=== PATIENT | female | born 1940 | race African-American/Black ===

== ENCOUNTER → 2019-12-25 12:58 | Outpatient (BNVA) | payer MEDICARE, SELFPAY | PROVIDERS: Visit Provider Physician Assistant | DX: Z76.89 Persons encountering health services in other specified circumstances (principal) ==

== ENCOUNTER → 2019-12-26 13:40 | Outpatient (BNVA) | payer MEDICARE, SELFPAY | PROVIDERS: Visit Provider Physician Assistant | DX: Z13.89 Encounter for screening for other disorder (principal) | CPT/HCPCS: 99214 ==

== ENCOUNTER → 2020-01-15 11:03 | Outpatient (REF) | payer MEDICARE, BC, SELFPAY ==
--- NOTE | 2020-01-15 11:07 | ECG_ITS ---
Test Reason : PREPROC EXAM Blood Pressure : / mmHG Vent. Rate : 056 BPM Atrial Rate : 056 BPM P-R Int : 134 ms QRS Dur : 096 ms QT Int : 460 ms P-R-T Axes : 070 000 028 degrees QTc Int : 443 ms Sinus bradycardia Voltage criteria for left ventricular hypertrophy Abnormal ECG No previous ECGs available Referred By: Rahat Riley Electronically Signed By:PRAVEEN VILLASEÑOR MD
== END ==
LOC: HO.CARD 11:03
PROVIDERS: PCP Internal Medicine; Visit Provider Internal Medicine
DX: Z01.818 Encounter for other preprocedural examination (principal)
CPT/HCPCS: 93005

== ENCOUNTER → 2020-02-16 10:56 | Outpatient (BNVA) | payer MEDICARE, SELFPAY | PROVIDERS: PCP Internal Medicine; Referring Provider Internal Medicine; Visit Provider Hospitalist | DX: G47.33 Obstructive sleep apnea (adult) (pediatric) (principal); Z99.89 Dependence on other enabling machines and devices | CPT/HCPCS: 99212 ==

== ENCOUNTER 2020-12-03 08:04 | Outpatient (REF) | payer MEDICARE, BC, SELFPAY ==
--- NOTE | ~2020-12-03 | MM_ITS ---
EXAMINATION: BONE DENSITOMETRY CLINICAL INDICATION: Menopause. COMPARISON: None (current study represents initial baseline exam). TECHNIQUE: Using a VC VISION DXA System (software version: 13.1) manufactured by [employer], dual-energy x-ray absorptiometry was performed of the lumbar spine and left hip. The images are of good technical quality. Summary results are attached. FINDINGS: AP SPINE L3-L4 (excluding L1 and L2): The data of L1-L4 has been changed to exclude the L1 and L2 vertebral bodies, because degenerative changes at these levels may cause overestimation of lumbar spine density. BMD 1.230 g/cm2, Z-score 1.0, T-score 0.2, normal. LEFT FEMUR, NECK: BMD 1.062 g/cm2, Z-score 1.3, T-score 0.2, normal. LEFT FEMUR, TOTAL: BMD 1.185 g/cm2, Z-score 2.3, T-score 1.4, normal. IDENTIFIED RISK FACTORS: Early menopause, height loss, hysterectomy, renal, secondary osteoporosis. HISTORY OF FRACTURE: None listed. MEDICATIONS: Multivitamin. MM/XR DEXA axial skeleton IMPRESSION: 1. DIAGNOSIS: Normal bone density based on the lowest T-score value of 0.2 in the lumbar spine and femur neck applying World Health Organization criteria. 2. 10-YEAR FRACTURE RISK PREDICTION, FRAX: Major osteoporotic fracture (clinical spine, forearm, hip or shoulder) 3.4%. Hip fracture 0.5%. 3. Treatment Recommendations: NOF guidelines recommend consideration for treatment in postmenopausal women and men age 50 and older presenting with the following: -A hip or vertebral (clinical or morphometric) fracture. -T-score less than or equal to -2.5 at the femoral neck or spine after appropriate evaluation to exclude secondary causes. -Low bone mass at the hip or spine and a 10-year fracture probability by FRAX of greater than or equal to 3% for hip fracture or greater than or equal to 20% for major osteoporotic fracture based on the [place] adapted WHO algorithm. 4. Other Recommendations: All treatment decisions require clinical judgment and consideration of individual patient factors, including patient preferences, comorbidities, previous drug use, risk factors not captured in the FRAX model (e.g. frailty, falls, vitamin D deficiency, increased bone turnover, interval significant decline in bone density) and possible under or overestimation of fracture risk by FRAX. FUTURE SCAN RECOMMENDATION: People with diagnosed cases of osteoporosis or at high risk for fracture should have regular bone mineral density tests. For patients eligible for Medicare, routine testing is allowed once every 2 years. The testing frequency can be increased to one year for patients who have rapidly progressing disease, those who are receiving or discontinuing medical therapy to restore bone mass, or have additional risk factors.
== END 2020-12-03 08:05 | disposition home or self-care (01) ==
LOC: HO.MAMMO 08:04
PROVIDERS: Visit Provider Nurse Practitioner Family
DX: Z13.820 Encounter for screening for osteoporosis (principal); Z78.0 Asymptomatic menopausal state; Z98.890 Other specified postprocedural states; Z79.899 Other long term (current) drug therapy
CPT/HCPCS: 77080

== ENCOUNTER 2021-07-18 12:51 | Outpatient (REF) | payer MEDICARE, BC, SELFPAY ==
--- NOTE | ~2021-07-18 | XR_ITS ---
EXAMINATION: XR KNEE, RIGHT CLINICAL INFORMATION: Fall, trauma, pain COMPARISON: None TECHNIQUE: 6 views of the right knee. FINDINGS: There is generalized periarticular osteopenia. No visible fracture or destructive cortex or focal bony lesion. No suprapatellar effusion. Hoffa's fat pad appears normal. There are osteoarthritic changes greatest patellofemoral joint with joint narrowing and mild lateralization patella with lateral patellar spur. There is spurring at the quadriceps insertion patella. Lesser spurring also seen involving the medial femoral condyle. There is no erosive change. There are scattered atherosclerotic calcifications vasculature. XR/XR knee RT 2V IMPRESSION: -No visible fracture, dislocation, or effusion. -Periarticular demineralization. No focal destructive process or periostitis. No erosive change. -Osteoarthritic changes greatest patellofemoral joint. Lateralization patella.
== END 2021-07-18 12:52 | disposition home or self-care (01) ==
LOC: HO.XRAY 12:51
PROVIDERS: PCP Internal Medicine; Visit Provider Internal Medicine
DX: M25.569 Pain in unspecified knee (principal)
CPT/HCPCS: 73560

== ENCOUNTER → 2022-06-21 10:28 | Outpatient (BNVA) | payer MEDICARE, BC, SELFPAY | PROVIDERS: PCP Internal Medicine; Visit Provider Hospitalist | DX: G47.33 Obstructive sleep apnea (adult) (pediatric) (principal); R09.89 Other specified symptoms and signs involving the circulatory and respiratory systems; Z99.89 Dependence on other enabling machines and devices | CPT/HCPCS: 99212 ==

== ENCOUNTER → 2022-09-18 13:57 | Outpatient (BNVA) | payer MEDICARE, BC, SELFPAY | PROVIDERS: PCP Internal Medicine; Visit Provider Hospitalist | DX: G47.33 Obstructive sleep apnea (adult) (pediatric) (principal); R09.89 Other specified symptoms and signs involving the circulatory and respiratory systems; Z99.89 Dependence on other enabling machines and devices | CPT/HCPCS: 99212 ==

== ENCOUNTER 2022-10-11 09:17 | Outpatient (AMB) | payer MEDICARE, BC, SELFPAY ==
--- NOTE | 2022-10-11 09:20 | MHC.PC.OV ---
Vital Signs 10/11/22 09:21 Height 4 ft 11 in Weight 168 lb 8 oz BMI 34.0 BP 160/90 H Blood Pressure Location Lt brachial Position Sitting Pulse 54 Pulse Source Pulse Oximeter Pulse Oximetry (%) 99 Oxygen Delivery Method Room Air Intake Visit Reasons: 4 month f/u Intake Note: Patient is here to follow up on HTN, Hyperlipidemia, GERD, HAN. Referral And Information Aide Required: No Lens Hardener: Not Required per policy Accompanied by: Self / Same As Patient Allergies penicillin V Allergy (Unknown, Verified 10/11/22 09:21) nausea and vomiting prednisone Adverse Reaction (Intermediate, Verified 10/11/22 09:21) leg Swelling Medication List - Last Reconciled 10/11/22 by Rahat Riley MD acetaminophen 500 mg PO Q6H PRN amlodipine 5 mg PO BID aspirin 81 mg PO DAILY calcitriol 0.25 mcg PO Q OTHER DAY cholecalciferol (vitamin D3) 50 mcg PO DAILY CPAP (CPAP Machine/Device) As directed furosemide 40 mg PO DAILY hydralazine 20 mg PO BID isosorbide mononitrate ER 60 mg PO DAILY lactulose 15 mL PO BID multivitamin 1 tab PO DAILY simvastatin 40 mg PO DAILY spironolactone 25 mg PO DAILY Tobacco use date assessed: 10/11/22 Fall risk assessment: No Falls in past year Last assessed Fall Risk: 10/11/22 Dental Screening Dental Screen Date: 10/11/22 Did you have a dental visit in the last 12 months?: Yes Did you have a dental problem in the last 6 months where you did not have access to dental care?: No Was dental information given to patient?: Patient has dentist HPI 4 month f/u HPI Details HTN hyperlipidemia and HAN on CPAP; stable [facility] Medical History (Updated 06/21/22 @ 11:01 by Salvador Rivas MD) Chest crackles Post-menopausal Pre-op exam Preop exam for internal medicine Surgical History H/O bladder repair surgery H/O: hysterectomy History of colonoscopy Hx laparoscopic cholecystectomy Previous back surgery Family History Mother No problems noted. Father No problems noted. Son No problems noted. Brother Dementia Heart disease Social History (Reviewed 10/11/22 @ 09:20 by KATHLEEN Carrera [facility] Alcohol intake: never Patient Tobacco Use Status: Never used Tobacco e-Cigarette/Vaping Use: Never Used Second Hand Smoke Exposure: No service: No Current occupational status: retired Cognitive needs: No Hearing needs: No Vision needs: Yes Questionnaire PHQ-9 Over the last 2 weeks, how often have you been bothered by any of the following problems? Depression Screening Interpretation: Negative Source: Developed by Nanda Bhardwaj Kurt Kroenke and colleagues, with an educational rosina from [employer]. Thrive Questionnaire Date Thrive assessed: 06/15/22 Currently or been in a relationship where the following occur: no concerns reported LYNN-7 AMB Questionnaire LYNN-7 Date LYNN - 7 assessed: 06/15/22 Source: Developed by Drs. Hollis Valdez, Nanda Garces, Rob Brown and colleagues, with an educational rosina from [employer]. Review of Systems Const Denies chills, Denies headache(s) and Denies weight loss ENT Denies headache(s) Card Denies chest pain, Denies syncope, Denies irregular heart rhythm and Denies dyspnea Resp Denies chest congestion, Denies cough and Denies dyspnea GI Denies abdominal pain, Denies change in stool character, Denies nausea and Denies vomiting Musc Denies deformity and Denies joint swelling Neuro Denies syncope and Denies headache(s) Physical exam (Primary Care) Vital Signs: Last Vital Signs Pulse 54 10/11/22 09:21 BP 160/90 H 10/11/22 09:21 Pulse Ox 99 10/11/22 09:21 Oxygen Delivery Method Room Air 10/11/22 09:21 BMI result Body Mass Index 34.0 Tobacco/Smoking Status: Tobacco use Status Tobacco use date assessed 10/11/22 10/11/22 09:26 Patient Tobacco Use Status Never used Tobacco 10/11/22 09:26 e-Cigarette/Vaping Use Never Used 10/11/22 09:26 Depression Screening Interpretation: Negative Thrive Assessment: Date of Thrive Assessment Date Thrive assessed 06/15/22 10/11/22 09:26 Currently or been in a relationship where the following occur: no concerns reported Const General: cooperative, comfortable and no acute distress Chest Chest palpation & inspection: normal inspection of the chest Resp Effort & Inspection: normal respiratory effort Auscultation: clear to auscultation bilaterally Percussion: percussion normal Cardio Jugular venous distension: no JVD Rate: regular rate Rhythm: regular rhythm Assessment and Plan Assessment & Plan (1) Hyperlipidemia: Code(s): E78.5 - Hyperlipidemia, unspecified Plan: stable; same rx (2) HAN on CPAP: Code(s): G47.33 - Obstructive sleep apnea (adult) (pediatric); Z99.89 - Dependence on other enabling machines and devices Plan: stable; same rx (3) Hypertension: Code(s): I10 - Essential (primary) hypertension Plan: stable; sme rx Coding Level of Care Code Est Pt Level 4 (51918) Diagnoses Hyperlipidemia E78.5 HAN on CPAP G47.33; Z99.89 Hypertension I10
[2022-10-11 09:21] VITALS: BP 160/90; PULSE 54; O2SAT 99; BMI 34.0
== END 2022-10-11 09:40 | disposition home or self-care (01) ==
PROVIDERS: PCP Internal Medicine; Visit Provider Internal Medicine
DX: E78.5 Hyperlipidemia, unspecified (principal); G47.33 Obstructive sleep apnea (adult) (pediatric); Z99.89 Dependence on other enabling machines and devices; I10 Essential (primary) hypertension
CPT/HCPCS: 99214

== ENCOUNTER 2022-10-11 09:49 | Outpatient (REF) | payer MEDICARE, BC, SELFPAY ==
--- NOTE | ~2022-10-11 | XR_ITS ---
EXAMINATION: XR CHEST CLINICAL INFORMATION: Other specified symptoms and signs involving the circulatory system COMPARISON: None available. TECHNIQUE: 2 views of the chest were obtained. 10:15 AM FINDINGS: No significant abnormality is noted involving the heart, lungs, mediastinum, bony thorax or soft tissues. Calcification of the thoracic aorta is indicative of atherosclerotic disease. XR/XR chest 2V IMPRESSION: No acute cardiopulmonary disease.
== END 2022-10-11 09:50 | disposition home or self-care (01) ==
LOC: HO.XRAY 09:49
PROVIDERS: PCP Internal Medicine; Visit Provider Hospitalist
DX: R09.89 Other specified symptoms and signs involving the circulatory and respiratory systems (principal)
CPT/HCPCS: 71046

== ENCOUNTER 2023-04-13 09:41 | Outpatient (AMB) | payer MEDICARE, BC, SELFPAY ==
[2023-04-13 09:47] VITALS: BP 150/60; PULSE 50; O2SAT 98; BMI 33.3
--- NOTE | 2023-04-13 09:47 | MHC.PC.OV ---
Vital Signs 04/13/23 09:47 Height 4 ft 11 in Weight 165 lb BMI 33.3 BP 150/60 H Blood Pressure Location Lt brachial Position Sitting Pulse 50 Pulse Source Pulse Oximeter Pulse Oximetry (%) 98 Oxygen Delivery Method Room Air Intake Visit Reasons: 6mth f/u [employer] Required: No Voltage Inspector: Not Required per policy Accompanied by: Self / Same As Patient Allergies penicillin V Allergy (Unknown, Verified 04/13/23 09:48) nausea and vomiting prednisone Adverse Reaction (Intermediate, Verified 04/13/23 09:48) leg Swelling Medication List - Last Reconciled 04/13/23 by Rahat Riley MD acetaminophen 500 mg PO Q6H PRN amlodipine 5 mg PO BID aspirin 81 mg PO DAILY calcitriol 0.25 mcg PO Q OTHER DAY cholecalciferol (vitamin D3) 50 mcg PO DAILY CPAP (CPAP Machine/Device) As directed difluprednate 0.05% 1 drp ophthalmic (eye) QID furosemide 40 mg PO DAILY hydralazine 20 mg PO BID isosorbide mononitrate ER 60 mg PO DAILY lactulose 15 mL PO BID multivitamin 1 tab PO DAILY simvastatin 40 mg PO DAILY spironolactone 25 mg PO DAILY Tobacco use date assessed: 04/13/23 Fall risk assessment: No Falls in past year Last assessed Fall Risk: 04/13/23 Dental Screening Dental Screen Date: 04/13/23 Did you have a dental visit in the last 12 months?: Yes Did you have a dental problem in the last 6 months where you did not have access to dental care?: No Was dental information given to patient?: Patient has dentist HPI 6mth f/u HPI Details HTN on Rx; doing well and compliant [facility] Medical History (Updated 06/21/22 @ 11:01 by Salvador Rivas MD) Chest crackles Post-menopausal Preop exam for internal medicine Pre-op exam Surgical History History of colonoscopy H/O bladder repair surgery Hx laparoscopic cholecystectomy Previous back surgery H/O: hysterectomy Family History Mother No problems noted. Father No problems noted. Son No problems noted. Brother Dementia Heart disease Social History (Reviewed 10/11/22 @ 09:20 by KATHLEEN Carrera [facility] Alcohol intake: never Patient Tobacco Use Status: Never used Tobacco e-Cigarette/Vaping Use: Never Used Second Hand Smoke Exposure: No service: No Current occupational status: retired Cognitive needs: No Hearing needs: No Vision needs: Yes Questionnaire PHQ-9 Over the last 2 weeks, how often have you been bothered by any of the following problems? 1. Little interest or pleasure in doing things: not at all 2. Feeling down, depressed, or hopeless: not at all 3. Trouble falling or staying asleep, or sleeping too much: not at all 4. Feeling tired or having little energy: not at all 5. Poor appetite or overeating: not at all 6. Feeling bad about yourself - or that you are a failure or have let yourself or your family down: not at all 7. Trouble concentrating on things, such as reading the newspaper or watching television: not at all 8. Moving or speaking so slowly that other people could have noticed. Or the opposite - being so fidgety or restless that you have been moving around a lot more than usual: not at all 9. Thoughts that you would be better off or of hurting yourself in some way: not at all Total score: 0 Depression Screening Interpretation: Negative Depression Screening Done: Yes 41198 - PHQ-9 Billing: Yes Source: Developed by Drs. Hollis Valdez, Nanda Garces, Rob Brown and colleagues, with an educational rosina from [employer]. Thrive Questionnaire Date Thrive assessed: 04/13/23 I am a: Patient What is your living situation today?: I have a steady place to live Within the past 12 months, did the food you bought not last and you didn't have the money to get more?: Never true Within the past 12 months, did you worry whether your food would run out before you got money to buy more?: Never true Do you have trouble paying for medicines?: No Do you have trouble getting transportation to medical appointments?: No Do you have trouble paying your heating and electricity bill?: No Do you have trouble taking care of your child, family member or friend?: No Do you have trouble with day-to-day activities such as bathing, preparing meals, shopping, managing finances, etc.?: No Are you currently unemployed and looking for a job?: No Are you interested in more education?: No Please select the resources that you would like help with: None THRIVE Score: 0 AUDIT C Alcohol Use Questionnaire (AUDIT-C) 1. How often do you have a drink containing alcohol?: Never 3. How often do you have six or more drinks on one occasion?: Never Total Score: 0 Score Reviewed/Action Taken: No LYNN-7 AMB Questionnaire LYNN-7 Date LYNN - 7 assessed: 04/13/23 Feeling nervous, anxious, or on edge: 0 = Not at all Not being able to stop or control worryin = Not at all Worrying too much about different things: 0 = Not at all Trouble relaxin = Not at all Being so restless that it is hard to sit still: 0 = Not at all Becoming easily annoyed or irritable: 0 = Not at all Feeling afraid as if something awful might happen: 0 = Not at all Total LYNN-7 score (0-4 normal; 5-9 mild; 10-14 moderate; 15-21 severe): 0 Source: Developed by Drs. Hollis Valdez, Nanda Garces, Rob Brown and colleagues, with an educational rosina from [employer]. LYNN-7 Assessment Billing LYNN-7 Assessment Tool: LYNN-7 Assessment 98606 Review of Systems Const Denies chills, Denies headache(s) and Denies weight loss ENT Denies headache(s) Card Denies chest pain, Denies syncope, Denies irregular heart rhythm and Denies dyspnea Resp Denies chest congestion, Denies cough and Denies dyspnea GI Denies abdominal pain, Denies change in stool character, Denies nausea and Denies vomiting Musc Denies deformity and Denies joint swelling Neuro Denies syncope and Denies headache(s) Physical exam (Primary Care) Vital Signs: Last Vital Signs Pulse 50 04/13/23 09:47 BP 150/60 H 04/13/23 09:47 Pulse Ox 98 04/13/23 09:47 Oxygen Delivery Method Room Air 04/13/23 09:47 BMI result Body Mass Index 33.3 Tobacco/Smoking Status: Tobacco use Status Tobacco use date assessed 04/13/23 04/13/23 09:55 Patient Tobacco Use Status Never used Tobacco 04/13/23 09:55 e-Cigarette/Vaping Use Never Used 04/13/23 09:55 PHQ-9: PHQ-9 Score PHQ-9: Total score 0 04/13/23 09:55 Depression Screening Interpretation: Negative Thrive Assessment: Date of Thrive Assessment Date Thrive assessed 04/13/23 04/13/23 09:55 Const General: cooperative, comfortable, no acute distress and alert Neck Neck: Yes no lymphadenopathy Thyroid: Thyroid normal Resp Effort & Inspection: normal respiratory effort Auscultation: clear to auscultation bilaterally Percussion: percussion normal Cardio Jugular venous distension: no JVD Palpation: normal PMI Rate: regular rate Rhythm: regular rhythm Heart sounds: S1 normal heart sound present and S2 normal heart sound present GI Inspection: Yes normal to inspection Palpation (GI): No hepatosplenomegaly present Skin General skin exam: no rashes or lesions noted Extrem General: Yes no clubbing, cyanosis or edema Assessment and Plan Assessment & Plan (1) Hypertension: Code(s): I10 - Essential (primary) hypertension Plan: stable; same rx Coding Level of Care Code Est Pt Level 3 (44553) Diagnoses Hypertension I10 Additional Codes LYNN-7 Assessment Billing - LYNN-7 Assessment Tool: LYNN-7 Assessment 40700 ([id number])
== END 2023-04-13 10:02 | disposition home or self-care (01) ==
PROVIDERS: PCP Internal Medicine; Visit Provider Internal Medicine
DX: I10 Essential (primary) hypertension (principal)
CPT/HCPCS: 99213

== ENCOUNTER 2023-07-20 12:59 | Outpatient (AMB) | payer MEDICARE, BC, SELFPAY ==
[2023-07-20 13:04] VITALS: BP 148/60; PULSE 57; O2SAT 99; BMI 32.7
--- NOTE | 2023-07-20 13:04 | A.OFFVIS_ITS ---
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 Recently she did undergo cataract surgery in had to be referred to [facility] because of complications. Her left eye has been getting better. This been port because of the fact that she does use CPAP. The CPAP therapy has been affecting beneficial, but, she has not been able to use it as regularly due to the fact that her eye has been bothering her. She will start using it more. In addition to that she does use the nasal pillows. However, although comfortable sometime she does get some irritation around the nostrils and she cannot wear them. Therefore I did have a P 30 mask available and did provide her with it so she can use it when her nose gets irritated. We did download her machine her AHI is below 2. Her average pressure is around 8 cm of water with a maximum of 10. Again she needs to increase the usage. Otherwise the patient is without any other complaints. 06/21/2022 the patient is here for pulmonary follow-up visit. The patient overall feels well. The patient has been using her CPAP. The CPAP therapy continues to be affecting beneficial. She does use it every night. She does use it for more than 4 hours. The only issues she has had is that she is having dry mouth. She does use a chinstrap with her nasal pillows. She does not feel like she opens her mouth. She did increase the humidity up to 7. Currently her heated tubing is not connected so I can not assess the temperature. I did explain to her how to increase the temperature on the tubing. We also talked about treating the water prior to use it to try to help with humidification. In addition to that her AHI is down to 1. His average pressure is around 5 in some that she needs up to 9. Therefore under go ahead and adjust the pressures to APAP 4-9 with the hope that we can improve the airway dryness. If the patient feels the pressures are too low that she can always call and again increasing again. On examination she does have some crackles. Although she does not have any shortness of breath or any limited activity. Will continue to monitor clinically. She develops any shortness of breath or any respiratory complaints will go ahead and request a chest x-ray. Right now clinically she is doing well in on 0 4 see that is going to add anything she does have some minimal interstitial changes. 09/18/2022 the patient is here for a pulmonary follow-up visit. Overall she is doing better. Her respiratory symptoms have improved. She denies any significant shortness of breath with activity. She has not seen any evidence of any progression of any symptoms since the last visit if anything feels a little better. She is tolerating her CPAP. The CPAP therapy continues to be affecting beneficial. She does use it for more than 4 hours a night. The patient does like her mask and she is using her chinstrap. The patient overall feels well. Her cough is also improved. Although she still has crackles on examination. I have her get an x-ray to monitor closely her pulmonary fibrosis. Will also have her return back sometime in the springtime we will repeat the x-ray just to make sure that there is any progression of the pulmonary fibrosis. 07/20/2023 the patient is here for a pulmonary follow-up visit. Overall the patient did well. She has been using her CPAP every night. The CPAP therapy has been affecting beneficial. She has been using it more than 4 hours. She does use the nasal pillows. Sometimes she gets irritation to her nasal passages and also sometimes gets very dry mouth. I did recommend a fullface mask. I did have a large F20 mask and did provide the rest for her to use. She also had a chest x-ray the last time she was here back in the summer 2022 which we p ersonally reviewed without any acute disease. She had a small area of atelectasis in the right base. The patient does have some crackles on examination. Will plan to get an x-ray during her next visit. However, her respiratory symptoms are the same she has not noticed any worsening or progression of any dyspnea symptoms which is reassuring. If the patient develops any worsening symptoms she will call for an earlier assessment otherwise follow-up next year with a chest x-ray. [facility] Medical History (Updated 06/21/22 @ 11:01 by Salvador Rivas MD) Chest crackles Post-menopausal Preop exam for internal medicine Pre-op exam Surgical History History of colonoscopy H/O bladder repair surgery Hx laparoscopic cholecystectomy Previous back surgery H/O: hysterectomy Family History Mother No problems noted. Father No problems noted. Son No problems noted. Brother Dementia Heart disease Social History Housing: Condominium Alcohol intake: never Patient Tobacco Use Status: Never used Tobacco e-Cigarette/Vaping Use: Never Used Second Hand Smoke Exposure: No service: No Current occupational status: retired Cognitive needs: No Hearing needs: No Vision needs: Yes Review of Systems Const Denies night sweats Eyes Denies change in vision ENT Denies change in voice, Reports dry mouth, Denies lip swelling, Denies mouth pain, Reports nasal congestion, Reports nasal discharge and Denies tongue swelling Card Denies chest pain, Denies dyspnea and Reports dyspnea on exertion Resp Reports cough, Denies dyspnea and Reports dyspnea on exertion GI Denies abdominal pain Musc Denies no additional complaints Neuro Denies Neuro-related abnormal movements Psych Denies no additional complaints Ivan/Lymph Denies easy bleeding and Denies lymphadenopathy Aller/Immun Denies lip swelling and Denies tongue swelling Physical Exam Vital Signs: Last Vital Signs Pulse 57 07/20/23 13:04 BP 148/60 H 07/20/23 13:04 Pulse Ox 99 07/20/23 13:04 Oxygen Delivery Method Room Air 07/20/23 13:04 BMI result Body Mass Index 32.7 Const General: alert Eyes Pupils: Equal, round and reactive pupils present Neck Neck: Yes normal visual inspection, Yes full ROM and Yes no lymphadenopathy Chest Chest palpation & inspection: normal inspection of the chest Resp Effort & Inspection: no stridor Auscultation: rales and diminished lung sounds Cardio Rate: regular rate Rhythm: regular rhythm Heart sounds: S1 normal heart sound present and S2 normal heart sound present GI Palpation (GI): Soft to palpation and nontender Auscultation: normal bowel sounds General: Yes no CVA tenderness Back/Spine/Pelvis Back: no CVA tenderness Skin General skin exam: rashes and/or lesions noted Neuro Cranial nerves: Yes Equal, round and reactive pupils present Assessment & Plan Assessment & Plan (1) HAN on CPAP: Code(s): G47.33 - Obstructive sleep apnea (adult) (pediatric); Z99.89 - Dependence on other enabling machines and devices Category: Medical Plan: Continue APAP therapy, needs to increase usage Trial P-30 mask (2) Chest crackles: Code(s): R09.89 - Other specified symptoms and signs involving the circulatory and respiratory systems Category: Medical Plan Continue APAP,adjusted 4-9 nasal pillow mask with chin strap, will trial a FM, F20 large F/U 1 year with repeat CXR Coding Level of Care Code Est Pt Level 4 (92672) Diagnoses HAN on CPAP G47.33; Z99.89 Chest crackles R09.89 Time Spent (min) 17
== END 2023-07-20 13:21 | disposition home or self-care (01) ==
PROVIDERS: PCP Internal Medicine; Visit Provider Hospitalist
DX: G47.33 Obstructive sleep apnea (adult) (pediatric) (principal); Z99.89 Dependence on other enabling machines and devices; R09.89 Other specified symptoms and signs involving the circulatory and respiratory systems
CPT/HCPCS: 99214

== ENCOUNTER → 2023-07-20 12:59 | Outpatient (BNVA) | payer MEDICARE, BC, SELFPAY | PROVIDERS: PCP Internal Medicine; Visit Provider Hospitalist | DX: G47.33 Obstructive sleep apnea (adult) (pediatric) (principal); R09.89 Other specified symptoms and signs involving the circulatory and respiratory systems; Z99.89 Dependence on other enabling machines and devices | CPT/HCPCS: 99212 ==

== ENCOUNTER 2023-10-12 09:13 | Outpatient (AMB) | payer MEDICARE, BC, SELFPAY ==
[2023-10-12 09:19] VITALS: BP 170/60; PULSE 74; O2SAT 99; BMI 32.6
--- NOTE | 2023-10-12 09:19 | MHC.PC.OV ---
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 Accompanied by: Self / Same As Patient Allergies penicillin V Allergy (Unknown, Verified 10/12/23 09:26) nausea and vomiting prednisone Adverse Reaction (Intermediate, Verified 10/12/23 09:26) leg Swelling Medication List - Last Reconciled 10/12/23 by Rahat Riley MD acetaminophen 500 mg PO Q6H PRN amlodipine 5 mg PO BID aspirin 81 mg PO DAILY calcitriol 0.25 mcg PO Q OTHER DAY cholecalciferol (vitamin D3) 50 mcg PO DAILY CPAP (CPAP Machine/Device) As directed difluprednate 0.05% 1 drp ophthalmic (eye) QID furosemide 40 mg PO DAILY hydralazine 25 mg PO TID isosorbide mononitrate ER 60 mg PO DAILY lactulose 15 mL PO BID multivitamin 1 tab PO DAILY simvastatin 40 mg PO DAILY spironolactone 25 mg PO DAILY Tobacco use date assessed: 04/13/23 Fall risk assessment: No Falls in past year Last assessed Fall Risk: 10/12/23 Dental Screening Dental Screen Date: 04/13/23 HPI 6 month f/u HPI Details HTN on r; doing well PFSH Medical History (Updated 06/21/22 @ 11:01 by Salvador Rivas MD) Chest crackles Post-menopausal Preop exam for internal medicine Pre-op exam Surgical History History of colonoscopy H/O bladder repair surgery Hx laparoscopic cholecystectomy Previous back surgery H/O: hysterectomy Family History Mother No problems noted. Father No problems noted. Son No problems noted. Brother Dementia Heart disease Social History Housing: Condominium Alcohol intake: never Patient Tobacco Use Status: Never used Tobacco e-Cigarette/Vaping Use: Never Used Second Hand Smoke Exposure: No service: No Current occupational status: retired Cognitive needs: No Hearing needs: No Vision needs: Yes Questionnaire Thrive Questionnaire Date Thrive assessed: 04/13/23 LYNN-7 AMB Questionnaire LYNN-7 Date LYNN - 7 assessed: 04/13/23 Source: Developed by Drs. Hollis Valdez, Nanda Garces, Rob Brown and colleagues, with an educational rosina from [employer]. Review of Systems Const Denies chills, Denies headache(s) and Denies weight loss ENT Denies headache(s) Card Denies chest pain, Denies syncope, Denies irregular heart rhythm and Denies dyspnea Resp Denies chest congestion, Denies cough and Denies dyspnea GI Denies abdominal pain, Denies change in stool character, Denies nausea and Denies vomiting Musc Denies deformity and Denies joint swelling Neuro Denies syncope and Denies headache(s) Physical exam (Primary Care) Vital Signs: Last Vital Signs Pulse 74 10/12/23 09:19 BP 170/60 H 10/12/23 09:19 Pulse Ox 99 10/12/23 09:19 Oxygen Delivery Method Room Air 10/12/23 09:19 BMI result Body Mass Index 32.6 Tobacco/Smoking Status: Tobacco use Status Tobacco use date assessed 04/13/23 10/12/23 09:21 Patient Tobacco Use Status Never used Tobacco 10/12/23 09:21 e-Cigarette/Vaping Use Never Used 10/12/23 09:21 Thrive Assessment: Date of Thrive Assessment Date Thrive assessed 04/13/23 10/12/23 09:21 Const General: cooperative, comfortable, no acute distress and alert Neck Neck: Yes no lymphadenopathy Thyroid: Thyroid normal Resp Effort & Inspection: normal respiratory effort Auscultation: clear to auscultation bilaterally Percussion: percussion normal Cardio Jugular venous distension: no JVD Palpation: normal PMI Rate: regular rate Rhythm: regular rhythm Heart sounds: S1 normal heart sound present and S2 normal heart sound present GI Inspection: Yes normal to inspection Palpation (GI): No hepatosplenomegaly present Skin General skin exam: no rashes or lesions noted Extrem General: Yes no clubbing, cyanosis or edema Assessment and Plan Assessment & Plan (1) Hypertension: Code(s): I10 - Essential (primary) hypertension Plan: stable; same rx Coding Level of Care Code Est Pt Level 3 (29685) Diagnoses Hypertension I10
== END 2023-10-12 09:45 | disposition home or self-care (01) ==
PROVIDERS: PCP Internal Medicine; Visit Provider Internal Medicine
DX: I10 Essential (primary) hypertension (principal)
CPT/HCPCS: 99213

== ENCOUNTER 2023-11-16 10:46 | Outpatient (AMB) | payer MEDICARE, BC, SELFPAY ==
[2023-11-16 10:50] VITALS: BP 172/76; PULSE 57; O2SAT 98; BMI 32.3
--- NOTE | 2023-11-16 10:50 | AM.OFFVISMDC ---
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 Accompanied by: Self / Same As Patient Allergies penicillin V Allergy (Unknown, Verified 11/16/23 10:50) nausea and vomiting prednisone Adverse Reaction (Intermediate, Verified 11/16/23 10:50) leg Swelling Medication List - Last Reconciled 11/19/23 by Rahat Riley MD acetaminophen 500 mg PO Q6H PRN amlodipine 5 mg PO BID aspirin 81 mg PO DAILY calcitriol 0.25 mcg PO Q OTHER DAY cholecalciferol (vitamin D3) 50 mcg PO DAILY CPAP (CPAP Machine/Device) As directed difluprednate 0.05% 1 drp ophthalmic (eye) QID furosemide 40 mg PO DAILY hydralazine 25 mg PO TID isosorbide mononitrate ER 60 mg PO DAILY lactulose 15 mL PO BID multivitamin 1 tab PO DAILY simvastatin 40 mg PO DAILY spironolactone 25 mg PO DAILY HPI AWV HPI Details HTN hyperlipidemia and OCA on rx; doing well PFSH Medical History (Updated 11/19/23 @ 08:31 by Rahat Riley MD) Chest crackles Post-menopausal Preop exam for internal medicine Pre-op exam Surgical History History of colonoscopy H/O bladder repair surgery Hx laparoscopic cholecystectomy Previous back surgery H/O: hysterectomy Family History Mother No problems noted. Father No problems noted. Son No problems noted. Brother Dementia Heart disease Social History Housing: Condominium Alcohol intake: never Patient Tobacco Use Status: Never used Tobacco e-Cigarette/Vaping Use: Never Used Second Hand Smoke Exposure: No service: No Current occupational status: retired Cognitive needs: No Hearing needs: No Vision needs: Yes Questionnaire Medicare Wellness Checkup What is your age?: 80 or older What gender do you identify with?: female During the past 4 weeks, how much have you been bothered by emotional problems such as feeling anxious, depressed, irritable, sad or downhearted, and blue?: slightly During the past 4 weeks, has your physical & emotional health limited your social activities with family, friends, neighbors, or groups?: not at all During the past 4 weeks, how much bodily pain have you generally had?: very mild pain During the past 4 weeks, what was the hardest physical activity you could do for at least 2 minutes?: heavy Can you get to places out of walking distance without help? (For eg., can you travel alone on buses, taxis or drive your car?): Yes Can you go shopping for groceries or clothes without someone's help?: Yes Can you prepare your own meals?: Yes Can you do your housework without help?: Yes Because of any health problems, do you need the help of another person with your personal care needs such as eating, bathing, dressing or getting around the house?: No Can you handle your own money without help?: Yes During the past 4 weeks, how would you rate your health in general?: very good During the past 4 weeks how have things been going for you?: pretty well Are you having difficulties driving your car?: sometimes Do you always fasten your seat belt when you are in a car?: yes, usually During past 4 weeks, have you been bothered by the following: never: Falling or dizzy when standing up, Sexual problems?, Trouble eating well?, Teeth or denture problems? and Problems using the telephone? and often: Tiredness or fatigue? Have you fallen 2 or more times in the past year?: No Are you afraid of falling?: Yes Are you a smoker?: no During the past 4 weeks, how many drinks of wine, beer, or other alcoholic beverages did you have?: no alcohol at all Do you exercise for about 20 minutes 3 or more times a week?: yes, most of the time Have you been given information to help with the following?: yes: Hazards in your house that might hurt you? and yes: Keeping track of your medications? How often do you have trouble taking medicines the way you have been told to take them?: I always take medicine as prescribed How confident are you that you can control & manage most of your health problems?: very confident What is your race?: Black or Mini Mental State Exam (MMSE) Orientation What is the (year) (season) (date) (day) (month)?: year, season, date, day and month Where are we (state) (county) (town or city) (hospital) (floor)?: state, county, town or city, hospital/clinic and floor Registration Name of 3 unrelated objects clearly and slowly, then ask patient to repeat all 3 of them. (1st repeat determines score. Make sure they can repeat all three): object 1, object 2 and object 3 Recall Ask patient to repeat the 3 items from question #3.: object 1 Score Score: 14 Activity of Daily Living Bathing - sponge bath, tub bath or shower: receives no assistance (gets in/out by self, if usual bathing means Dressing - getting clothes from closets & drawers, including inner/outer garments & fasteners.: gets clothes & gets completely dressed without help Toileting - going to the 'toilet room' for urine/bowel elimination & cleaning self/arranging clothes: goes to toilet room, cleans self, arranges clothes without help Transfer: moves in & out of bed and chair without help (may use support object) Continence: controls urination/bowel movements completely by self Feeding: feeds self without help Total Score: 0 Information obtained from: patient Using telephone: independent Traveling: independent Shopping: independent Preparing meals: independent Housework: independent Taking medicine: independent Managing money: independent PHQ-9 Over the last 2 weeks, how often have you been bothered by any of the following problems? 1. Little interest or pleasure in doing things: not at all 2. Feeling down, depressed, or hopeless: not at all 3. Trouble falling or staying asleep, or sleeping too much: nearly every day 4. Feeling tired or having little energy: more than half the days 5. Poor appetite or overeating: not at all 6. Feeling bad about yourself - or that you are a failure or have let yourself or your family down: several days 7. Trouble concentrating on things, such as reading the newspaper or watching television: not at all 8. Moving or speaking so slowly that other people could have noticed. Or the opposite - being so fidgety or restless that you have been moving around a lot more than usual: not at all 9. Thoughts that you would be better off or of hurting yourself in some way: not at all Total score: 6 Depression Screening Interpretation: Positive Depression Screening Done: Yes 47141 - PHQ-9 Billing: Yes Source: Developed by Drs. Hollis Valdez, Nanda Garces, Rob Brown and colleagues, with an educational rosina from [employer]. Review of Systems Const Denies chills, Denies fatigue, Denies headache(s) and Denies weight loss Eyes Denies change in vision, Denies diplopia and Denies eye pain ENT Reports Normal hearing present, Denies vertigo, Denies dizziness, Denies headache(s) and Denies nasal discharge Card Denies chest pain, Denies rapid heart rate and Denies dyspnea on exertion Resp Denies chest congestion, Denies cough, Denies pain with cough and Denies dyspnea on exertion GI Denies abdominal pain, Denies hematochezia and Denies change in bowel habits Musc Denies myalgias, Denies arthralgias and Denies joint swelling Skin/Breast Denies lesions and Denies unusual bruising Neuro Reports Normal hearing present, Denies vertigo, Denies dizziness, Denies headache(s) and Denies focal weakness Endo Denies fatigue Physical Exam Vital Signs: Last Vital Signs Pulse 57 11/16/23 10:50 BP 172/76 H 11/16/23 10:50 Pulse Ox 98 11/16/23 10:50 Oxygen Delivery Method Room Air 11/16/23 10:50 BMI result Body Mass Index 32.3 Neuro Cranial nerves: Yes Normal hearing present Assessment & Plan Assessment & Plan (1) Encounter for subsequent annual wellness visit (AWV) in Medicare patient: Code(s): Z00.00 - Encounter for general adult medical examination without abnormal findings Plan: all forms given to patient; rhomberg and whisper tests normal (2) Hyperlipidemia: Code(s): E78.5 - Hyperlipidemia, unspecified Plan: stable; same rx (3) HAN on CPAP: Code(s): G47.33 - Obstructive sleep apnea (adult) (pediatric); Z99.89 - Dependence on other enabling machines and devices Plan: stable; same rx (4) Hypertension: Code(s): I10 - Essential (primary) hypertension Plan: stable; same rx Quality Reporting (2019) Depression/Bipolar (159/160/161/177) PHQ-9: Total score: 6 Coding Level of Care Code Medicare Subsequent (G0439) Diagnoses Encounter for subsequent annual wellness visit (AWV) in Medicare patient Z00.00 Hyperlipidemia E78.5 HAN on CPAP G47.33; Z99.89 Hypertension I10 CPT Codes Advance Care Planning - Advance Care Planning discussion: On file, no changes ([id number]) Advance Care Planning Advance Care Planning discussion: On file, no changes Forms completed: Health Care Proxy
== END 2023-11-16 11:09 | disposition home or self-care (01) ==
PROVIDERS: PCP Internal Medicine; Visit Provider Internal Medicine
DX: Z00.00 Encounter for general adult medical examination without abnormal findings (principal); E78.5 Hyperlipidemia, unspecified; G47.33 Obstructive sleep apnea (adult) (pediatric); Z99.89 Dependence on other enabling machines and devices; I10 Essential (primary) hypertension
CPT/HCPCS: 1123F; G0439

== ENCOUNTER → 2024-04-18 09:38 | Outpatient (BNVA) | payer MEDICARE, BC, SELFPAY | PROVIDERS: PCP Internal Medicine; Visit Provider Internal Medicine | DX: I10 Essential (primary) hypertension (principal); I73.9 Peripheral vascular disease, unspecified | CPT/HCPCS: 96127; 99212 ==

== ENCOUNTER 2024-05-16 13:36 | Outpatient (REF) | payer MEDICARE, BC, SELFPAY ==
--- OUTSIDE RECORDS SUMMARY | 2024-05-16 14:07 | XMS_ITS | Encounter Summary ---
Author Organization [facility] Address [address] [facility] [address] [place] [address] Phone Care Team Providers Care Coupon Manifest Clerk Name Role Phone Rahat Riley MD Primary Care Provider Reason for Visit * Reason Onset Date Comments Med Refill 01/17/2021 Encounter Details Date Type Department Care Team (Late st Contact Info) Description 01/17/2021 Refill [facility] [address] [place] [phone] Rocio Barajas Social History Tobacco Use Types Packs/Day Years Used Date Smoking Tobacco: Never Smokeless Tobacco: Never Alcohol Use Standard Drinks/Week Comments No 0 (1 standard drink = 0.6 oz pur e alcohol) Comments Unknown Sex and Gender Information Value Date Recorded Sex Assigned at Not on file Legal Sex Female 4:59 PM EST Gender Identity Not on file Sexual Orientation Not on file documented as of this encounter Plan of Treatment Upcoming Encounters Date Type Department Care Team (Late st Contact Info) Description 06/04/2024 12:00 PM EDT Office Visit [facility] [address] [facility] [address] [place] [phone] Ravi Ferrera MD [address] [facility] [address] [place] [phone] documented as of this encounter Visit Diagnoses Not on filedocumented in this encounter Care Teams Coupon Manifest Clerk Relationship Specialty Start Date End Date Rahat Riley MD [address] [place], [place] PCP - General 04/05/20 documented as of this encounter
--- OUTSIDE RECORDS SUMMARY | 2024-05-16 14:07 | XMS_ITS | Encounter Summary ---
Author Organization [facility] [address] [place] [phone] Phone Care Team Providers Care Corn Cutter Operator Name Role Phone Rahat Riley MD Primary Care Provider [phone] Encounter Details Date Type Department Care Team (Late Contact Info) Description 04/16/2024 Orders Only [facility] [address] [address] Ravi Ferrera MD [facility] [address] Social History Tobacco Use Types Packs/Day Years [...] Encounters Date Type Department Care Team (Late Contact Info) Description 06/04/2024 12:00 PM EDT Office Visit [facility] [address] [address] Ravi Ferrera MD [facility] [address] [address] documented as of this encounter Procedures Procedure Name Priority Date/Time Associated Diagnosis Comments PROTEIN / CREATININE RATIO, URINE Routine 04/16/2024 8:54 AM EST TSH+T3+FREE T4+T3 FREE (HC) Routine 04/16/2024 8:47 AM EST LIPID PANEL W/RFLX TO DIRECT LDL Routine 04/16/2024 8:47 AM EST CBC WITH AUTO DIFFERENTIAL Routine 04/16/2024 8:47 AM EST VITAMIN D 25 HYDROXY Routine 04/16/2024 8:47 AM EST URIC ACID Routine 04/16/2024 8:47 AM EST PHOSPHATE ( PHOSPHORUS) Routine 04/16/2024 8:47 AM EST PTH, INTACT Routine 04/16/2024 8:47 AM EST MAGNESIUM Routine 04/16/2024 8:47 AM EST HEMOGLOBIN A1C Routine 04/16/2024 8:47 AM EST documented in this encounter Results * (ABNORMAL) Protein, Total, Random Urine w/Creatinine (Protein/Creat Ratio) (04/16/2024 8:54 AM EST) [facility] Protein, Ur 87 mg/dL [facility] Urine Protein/Creati nine Ratio 1.53(H) <=0.20 mg/mg creat [facility] Creatinine, Urine 57.0 mg/dL [facility] 04/16/2024 8:54 AM EST 04/16/2024 9:33 AM EST us Ravi Ferrera MD LAB URINE ORDERABLES Final Re sult [facility] [address] [place] [address] * Hemoglobin A1c (04/16/2024 8:47 AM EST) Hemoglobin A1C 5.4 <6.5 % [facility] Estimated Average Glucose 108 mg/dL [facility] 04/16/2024 8:47 AM EST 04/16/2024 9:35 AM EST us Ravi Ferrera MD LAB BLOOD ORDERABLES Final Re sult Performing Organization Address City/[facility]/ZIP Co de Phone Number [facility] [address] [place] [address] * (ABNORMAL) PTH, Intact (04/16/2024 8:47 AM EST) PTH 104.7(H) 18.5 - 88.0 pcg/mL [facility] 04/16/2024 8:47 AM EST 04/16/2024 9:36 AM EST us Ravi Ferrera MD LAB BLOOD ORDERABLES Final Re sult Performing Organization Address [facility] Co de Phone Number [facility] [address] [place] [address] * TSH+T3+Free T4+T3 Free (04/16/2024 8:47 AM EST) TSH 3.04 0.40 - 4.00 mcIU/mL [facility] 04/16/2024 8:47 AM EST 04/16/2024 9:36 AM EST Ravi Ferrera MD LAB [id number] SOLICITED RESULTS Final Result Performing Organization Address [facility] Co de Phone Number [facility] [address] [place] [address] * Vitamin D 25 Hydroxy (04/16/2024 8:47 AM EST) Vitamin D, 25-OH, Total 58.3 30.0 - 80.0 ng/mL [facility] 04/16/2024 8:47 AM EST 04/16/2024 9:36 AM EST us Ravi Ferrera MD LAB BLOOD ORDERABLES Final Re sult Performing Organization Address [facility] de Phone Number [facility] [address] [place] [address] * Lipid Panel w/Rfl Direct LDL (04/16/2024 8:47 AM EST) Cholesterol 163 0 - 200 mg/dL [facility] Triglycerides 80 0 - 150 mg/dL [facility] HDL 91 >=40 mg/dL [facility] LDL Calculated 56 0 - 100 mg/dL [facility] VLDL Cholesterol Yo 16 mg/dL [facility] Total Efj-BOF-Ginf (LDL+VLDL) 72 <145 mg/dL [facility] Chol/HDL Ratio 1.8 0.0 - 4.4 [facility] 04/16/2024 8:47 AM EST 04/16/2024 9:36 AM EST us Ravi Ferrera MD LAB BLOOD ORDERABLES Final Re sult Performing Organization Address [facility] de Phone Number [facility] [address] [place] [address] * (ABNORMAL) Uric Acid (04/16/2024 8:47 AM EST) Uric Acid 7.9(H) 3.1 - 7.8 mg/dL [facility] 04/16/2024 8:47 AM EST 04/16/2024 9:36 AM EST us Ravi Ferrera MD LAB BLOOD ORDERABLES Final Re sult Performing Organization Address [facility] Co de Phone Number [facility] [address] [place] [address] * (ABNORMAL) Phosphorus (04/16/2024 8:47 AM EST) [facility] Phosphorus 4.8(H) 2.5 - 4.5 mg/dL [facility] 04/16/2024 8:47 AM EST 04/16/2024 9:36 AM EST us Ravi Ferrera MD LAB BLOOD ORDERABLES Final Re sult Performing Organization Address [facility] de Phone Number [facility] [address] [place] [address] * Magnesium (04/16/2024 8:47 AM EST) [facility] Magnesium 2.4 1.9 - 2.6 mg/dL [facility] 04/16/2024 8:47 AM EST 04/16/2024 9:36 AM EST us Ravi Ferrera MD LAB BLOOD ORDERABLES Final Re sult Performing Organization Address [facility] de Phone Number [facility] [address] [place] [address] * (ABNORMAL) CBC auto differential (04/16/2024 8:47 AM EST) [facility] WBC 5.5 4.8 - 10.8 K/[facility] RBC 3.50(L) 3.80 - 4.80 M/[facility] Hgb 11.4(L) 11.5 - 16.0 g/dL [facility] Hematocrit 37.1 35.0 - 47.0 % [facility] MCV 105.1(H) 79.0 - 98.0 FL [facility] MCH 32.3(H) 27.0 - 32.0 pcg [facility] MCHC 30.7(L) 32.0 - 37.0 g/dL [facility] RDW 13.2 11.0 - 15.0 % [facility] Platelets 155 130 - 400 [facility] MPV 10.6 7.0 - 11.0 FL [facility] nRBC Count 0.0 <1.0 % [facility] NRBC Absolute 0.[address] <0.10 [facility] Bands Relative 63.7 % [facility] Lymphocyte Realative Percent 17.9 % [facility] Monocyte Relative Percent 12.9 % [facility] Eosinophil Relative Percent 4.6 % [facility] Basophils Relative Diff 0.7 % [facility] Immature Granulocytes 0.2 % [facility] Neutrophils Absolute 3.50 1.50 - 7.00 [facility] Lymphocytes Absolute 0.98(L) 1.00 - 5.00 [facility] Monocytes Absolute 0.71 0.20 - 1.00 [facility] Eosinophil Absolute 0.25 0.00 - 0.50 [facility] Basophil ABS 0.04 0.00 - 0.20 [facility] Immature Grans (Absolute) 0.01 0.00 - 0.03 [facility] 04/16/2024 8:47 AM EST 04/16/2024 9:35 AM EST us Ravi Ferrera MD LAB BLOOD ORDERABLES Final Re sult [facility] ([facility] [address] [place] [address] documented in this encounter Visit Diagnoses Not on filedocumented in this encounter Care Teams Corn Cutter Operator Relationship Specialty Start Date End Date Rahat Riley MD [address] [place], [place] PCP - General 04/05/20 documented as of this encounter
--- OUTSIDE RECORDS SUMMARY | 2024-05-16 14:07 | XMS_ITS | Clinical Summary ---
Author Organization [facility] Address [address] [facility] [address] [place] [address] Phone Care Team Providers Care Grain Inspector Name Role Phone Rahat iRley MD Primary Care Provider [phone] Allergies Active Allergy Reactions Criticality Noted Date Comments Penicillins Other (see comments) 09/01/2020 Medications Multiple Vitamin (Multi-Vitamin Daily) tablet Take 1 capsule by mouth 1 (one) time each day Active acetaminophen (TYLENOL) 500 MG tablet as needed Active aspirin ([facility] JUAN CARLOS) 81 MG EC tablet Take 1 tablet by mouth 1 (one) time each day Active hydrALAZINE 25 MG tablet Take 1 tablet by mouth in the morning and 1 tablet in the evening and 1 tablet before bedtime. Active cholecalciferol (VITAMIN D-3) 25 MCG (1000 UT) capsule Take 1 capsule by mouth 1 (one) time each day 08/09/2016 Active lactulose (CHRONULAC) 10 GM/15ML solution Take 15 mL by mouth if needed 06/16/2020 Active Difluprednate 0.05 % emulsion if needed 01/03/2021 Active docusate sodium (COLACE) 250 MG capsule Take 250 mg by mouth 1 (one) time each day Active calcitriol (ROCALTROL) 0.25 MCG capsule Take 1 capsule (0.25 mcg total) by mouth every other day 45 capsule 3 08/22/2023 08/22/19 25 Active isosorbide mononitrate (IMDUR) 60 MG 24 hr tablet TAKE 1 TABLET BY MOUTH EVERY DAY 90 tablet 3 08/29/2023 Active furosemide (LASIX) 40 MG tabletIndication s:Stage 3b chronic kidney disease (HCC),Other proteinuria,Hype rtension,Hyperte nsive renal disease,Deep venous thrombosis <Unspecified side> (HCC),Bradycardi a,Anemia in chronic kidney disease TAKE 1 TABLET(40 MG) BY MOUTH 1 TIME EACH DAY 90 tablet 3 09/25/2023 Active spironolactone (ALDACTONE) 25 MG tablet TAKE 1 TABLET BY MOUTH EVERY DAY 90 tablet 3 01/07/2024 Active amLODIPine (NORVASC) 5 MG tablet TAKE 1 TABLET BY MOUTH TWICE DAILY 180 tablet 3 01/28/2024 Active simvastatin (ZOCOR) 40 MG tablet TAKE 1 TABLET BY MOUTH EVERY DAY 90 tablet 3 03/03/2024 Active Active Problems Problem Noted Date Diagnosed Date Sinus bradycardia 09/07/2022 Overview (04/22/2024): Relative bradycardia by Holter monitor. No prolonged pauses or syncope. Last Assessment & Plan: Heart rate today on the ECG is quite normal and given the lack of syncope or presyncope I will continue to monitor clinically for any worsening of bradycardia. No clear indication for pacemaker at this stage. Left ventricular hypertrophy 09/07/2022 Overview (04/22/2024): LVH voltage by echocardiogram. 11 to 12 mm thickness. Last Assessment & Plan: LVH voltage but no diastolic heart failure. She will continue a low-sodium diet Acute nontraumatic kidney injury 09/01/2020 Anemia in chronic kidney disease 09/01/2020 Bradycardia 09/01/2020 Stage 3b chronic kidney disease 09/01/2020 Hyperkalemia 09/01/2020 Hyperparathyroidism due to renal insufficiency 0 09/01/2020 Hypertensive renal disease 09/01/2020 Localized edema 09/01/2020 Obesity 09/01/2020 Proteinuria 09/01/2020 Deep venous thrombosis <Unspecified side> 2020 Hypertension 09/01/2020 Raynaud's phenomenon 09/01/2020 Gastroesophageal reflux disease 09/01/2020 Obstructive sleep apnea syndrome 09/01/2020 Encounters Date Type Department Care Team Description 04/22/2024 Documentation Only [facility] [address] [address] Ravi Ferrera MD No Show (No show/) 04/16/2024 Orders Only [facility] [address] [facility] [address] [place] [phone] Ravi Ferrera MD 03/03/2024 Refill [facility] [address] [address] [place] [phone] Ravi Ferrera MD from Last 3 Months Immunizations Name Administration Dates Next Due Influenza Split High Dose Preservative Free IM 0 11/17/2013,12/24/2012 Influenza TIV (IM) 11/09/2017 MMR 01/09/2012 Pneumococcal Conjugate 13-Valent 11/02/2014 Pneumococcal Polysaccharide 12/04/2011 Family History Medical History Relation Comments Heart disease Father Hypertension Father Dementia Mother Diabetes Mother Relation Status Comments Father Mother Social History Tobacco Use Types Packs/Day Years Used Date Smoking Tobacco: Never Smokeless Tobacco: Never Alcohol Use Standard Drinks/Week Comments No 0 (1 standard drink = 0.6 oz pur e alcohol) Comments Unknown Sex and Gender Information Value Date Recorded Sex Assigned at Not on file Legal Sex Female 4:59 PM EST Gender Identity Not on file Sexual Orientation Not on file Last Filed Vital Signs Vital Sign Reading Time Taken Comments Blood Pressure 190/65 08/22/2023 9:57 AM EDT Pulse 68 08/22/2023 9:57 AM EDT Temperature - - Respiratory Rate - - Oxygen Saturation 97% 02/21/2023 9:54 AM EST Inhaled Oxygen Concentration - - Weight 74.2 kg (163 lb 9.6 oz) 02/21/2023 9:54 A M EST Height 149.9 cm (4' 11 ) 02/21/2023 9:54 AM EST Body Mass Index 33.04 02/21/2023 9:54 AM EST Plan of Treatment Upcoming Encounters Date Type Department Care Team (Late st Contact Info) Description 06/04/2024 12:00 PM EDT Office Visit [facility] [address] [facility] [address] [place] [address] Ravi Ferrera MD [address] [facility] [address] [place] [address] Health Maintenance Due Date Last Done Comments Influenza Vaccine (#1) 2023 8, 11/17/2013, 12/24/2012 Pneumococcal Vaccine: 65+ Years Completed 11/02/2014, 12/04/2011 Hepatitis B Vaccine Aged Out No longe r eligible based on patient's age to complete this topic Procedures Procedure Name Priority Date/Time Associated Diagnosis Comments PROTEIN / CREATININE RATIO, URINE Routine 04/16/2024 8:54 AM EST HEMOGLOBIN A1C Routine 04/16/2024 8:47 AM EST PTH, INTACT Routine 04/16/2024 8:47 AM EST TSH+T3+FREE T4+T3 FREE (HC) Routine 04/16/2024 8:47 AM EST VITAMIN D 25 HYDROXY Routine 04/16/2024 8:47 AM EST LIPID PANEL W/RFLX TO DIRECT LDL Routine 04/16/2024 8:47 AM EST URIC ACID Routine 04/16/2024 8:47 AM EST PHOSPHATE ( PHOSPHORUS) Routine 04/16/2024 8:47 AM EST MAGNESIUM Routine 04/16/2024 8:47 AM EST CBC WITH AUTO DIFFERENTIAL Routine 04/16/2024 8:47 AM EST from Last 3 Months Results * (ABNORMAL) Protein, Total, Random Urine w/Creatinine (Protein/Creat Ratio) (04/16/2024 8:54 AM EST) Protein, Ur 87 mg/dL [facility] Urine Protein/Creati nine Ratio 1.53(H) <=0.20 mg/mg creat [facility] Creatinine, Urine 57.0 mg/dL [facility] 04/16/2024 8:54 AM EST 04/16/2024 9:33 AM EST us Ravi Ferrera MD LAB URINE ORDERABLES Final Re sult Performing Organization Address City/[facility]/ZIP Co de Phone Number [facility] [address] [place] [address] * TSH+T3+Free T4+T3 Free (04/16/2024 8:47 AM EST) TSH 3.04 0.40 - 4.00 mcIU/mL [facility] 04/16/2024 8:47 AM EST 04/16/2024 9:36 AM EST us Ravi Ferrera MD LAB [id number] SOLICITED RESULTS Final Result Performing Organization Address [facility] Co de Phone Number [facility] [address] [place] [address] * Lipid Panel w/Rfl Direct LDL (04/16/2024 8:47 AM EST) Cholesterol 163 0 - 200 mg/dL [facility] Triglycerides 80 0 - 150 mg/dL [facility] HDL 91 >=40 mg/dL [facility] LDL Calculated 56 0 - 100 mg/dL [facility] VLDL Cholesterol Yo 16 mg/dL [facility] Total Nfz-LQJ-Mjdz (LDL+VLDL) 72 <145 mg/dL [facility] Chol/HDL Ratio 1.8 0.0 - 4.4 [facility] 04/16/2024 8:47 AM EST 04/16/2024 9:36 AM EST us Ravi Ferrera MD LAB BLOOD ORDERABLES Final Re sult Performing Organization Address City/[facility]/ZIP Co de Phone Number [facility] [address] [place] [address] * (ABNORMAL) CBC auto differential (04/16/2024 8:47 AM EST) WBC 5.5 4.8 - 10.8 K/[facility] RBC 3.50(L) 3.80 - 4.80 M/[facility] Hgb 11.4(L) 11.5 - 16.0 g/dL [facility] Hematocrit 37.1 35.0 - 47.0 % [facility] MCV 105.1(H) 79.0 - 98.0 FL [facility] MCH 32.3(H) 27.0 - 32.0 pcg [facility] MCHC 30.7(L) 32.0 - 37.0 g/dL [facility] RDW 13.2 11.0 - 15.0 % [facility] Platelets 155 130 - 400 K/[facility] MPV 10.6 7.0 - 11.0 FL [facility] nRBC Count 0.0 <1.0 % [facility] NRBC Absolute 0.00 <0.10 K/[facility] Bands Relative 63.7 % [facility] Lymphocyte Realative Percent 17.9 % [facility] Monocyte Relative Percent 12.9 % [facility] Eosinophil Relative Percent 4.6 % [facility] Basophils Relative Diff 0.7 % [facility] Immature Granulocytes 0.2 % [facility] Neutrophils Absolute 3.50 1.50 - 7.00 K/[facility] Lymphocytes Absolute 0.98(L) 1.00 - 5.00 K/[facility] Monocytes Absolute 0.71 0.20 - 1.00 K/[facility] Eosinophil Absolute 0.25 0.00 - 0.50 K/[facility] Basophil ABS 0.04 0.00 - 0.20 K/[facility] Immature Grans (Absolute) 0.01 0.00 - 0.03 /[facility] 04/16/2024 8:47 AM EST 04/16/2024 9:35 AM EST us Ravi Ferrera MD LAB BLOOD ORDERABLES Final Re sult Performing Organization Address [facility]/ZIP Co de Phone Number [facility] [address] [place] [address] * Vitamin D 25 Hydroxy (04/16/2024 8:47 AM EST) Vitamin D, 25-OH, Total 58.3 30.0 - 80.0 ng/mL [facility] 04/16/2024 8:47 AM EST 04/16/2024 9:36 AM EST us Ravi Ferrera MD LAB BLOOD ORDERABLES Final Re sult [facility] [address] [place] [address] * (ABNORMAL) Uric Acid (04/16/2024 8:47 AM EST) Uric Acid 7.9(H) 3.1 - 7.8 mg/dL [facility] 04/16/2024 8:47 AM EST 04/16/2024 9:36 AM EST us Ravi Ferrera MD LAB BLOOD ORDERABLES Final Re sult Performing Organization Address [facility] Co de Phone Number [facility] [address] [place] [address] * (ABNORMAL) Phosphorus (04/16/2024 8:47 AM EST) Phosphorus 4.8(H) 2.5 - 4.5 mg/dL [facility] 04/16/2024 8:47 AM EST 04/16/2024 9:36 AM EST us Ravi Ferrera MD LAB BLOOD ORDERABLES Final Re sult Performing Organization Address [facility] de Phone Number [facility] [address] [place] [address] * (ABNORMAL) PTH, Intact (04/16/2024 8:47 AM EST) PTH 104.7(H) 18.5 - 88.0 pcg/mL [facility] 04/16/2024 8:47 AM EST 04/16/2024 9:36 AM EST us Ravi Ferrera MD LAB BLOOD ORDERABLES Final Re sult Performing Organization Address [facility] de Phone Number [facility] [address] [place] [address] * Magnesium (04/16/2024 8:47 AM EST) Magnesium 2.4 1.9 - 2.6 mg/dL [facility] 04/16/2024 8:47 AM EST 04/16/2024 9:36 AM EST us Ravi Ferrera MD LAB BLOOD ORDERABLES Final Re sult Performing Organization Address [facility] Co de Phone Number [facility] [address] [place] [address] * Hemoglobin A1c (04/16/2024 8:47 AM EST) Hemoglobin A1C 5.4 <6.5 % [facility] Estimated Average Glucose 108 mg/dL [facility] 04/16/2024 8:47 AM EST 04/16/2024 9:35 AM EST us Ravi Ferrera MD LAB BLOOD ORDERABLES Final Re sult [facility] ([facility]) [facility] [address] [place] [address] from Last 3 Months Insurance [facility] Member Subscriber Plan / Payer (Ef fective 2015-Present) Name:Kristen Green Relation to Subscriber:Spouse Name:ARIANNAKRISTEN Date of :1938 (Home) Address: [address] [place] [id number] Payer ID:[id number] (NAIC) Group ID:[id number] Type:Not on file Address: [address] [place] [address] MEDICARE , [address] [address] [facility] Member Subscriber Plan / Payer (Ef fective 2015-Present) Name:Kristen Green Relation to Subscriber:Spouse Name:KRISTEN GREEN Date of :1940 (Home) Address: [address] [place] [address], [address] [address] Payer ID:[id number] (NAIC) Group ID:[id number] Type:Not on file Address: [address] [place] [address] MEDICARE Care Teams Grain Inspector Relationship Specialty Start Date End Date Rahat Riley MD [address] [place], [place] PCP - General 04/05/20
--- OUTSIDE RECORDS SUMMARY | 2024-05-16 14:07 | XMS_ITS | Encounter Summary ---
Author Organization [facility] Address [address] [address] Phone Care Team Providers Care Business Objects Architect Name Role Phone Rahat Riley MD Primary Care Provider [phone] Reason for Visit * Reason Onset Date Comments No Show 04/22/2024 No show Encounter Details Date Type Department Care Team (Latest Contact Info) Description 04/22/2024 Documentation Only [facility] [address] [address] Ravi Ferrera MD [address] [place] [phone] No Show (No show/) Social History Tobacco Use Types Packs/Day Years [...] EDT Office Visit [facility] [address] [phone] Ravi Ferrera MD [address] [place] [phone] documented as of this encounter Visit Diagnoses Not on filedocumented in this encounter Care Teams Business Objects Architect Relationship Specialty Start Date End Date Rahat Riley MD [address] [place], [place] PCP - General 04/05/20 documented as of this encounter
--- OUTSIDE RECORDS SUMMARY | 2024-05-16 14:07 | XMS_ITS | Data Portability ---
Author Organization [place] [facility], All[facility] Address [address] [place] [address] [address] [place] [address] Assessment Encounter Date Assessment Date Assessment LastModified by Organization Details LastModified Time 11/12/2023 11/12/2023 83-year-old female presents for cerumen removal. Cerumen impaction removed bilaterally. Bilateral TMs are intact. She will follow-up in 3-4 months for routine cerumen removal. toan Not available 11/12/2023 13:20:05 02/27/2024 02/27/2024 84-year-old female presents for cerumen removal. Cerumen impaction removed bilaterally. Bilateral TMs are intact. She will follow-up in 3-4 months for routine cerumen removal. [email or web address] Not available 02/27/2024 13:11:31 Plan of Treatment Reminders Order Date Submit Date Provider Last Modified By Organization Details Last Modified Time Details Appointments Establish ed 15 2024 01:00P M JUSTINE BLACKBURN PA-C Not available Not available Not available Lab None recorded. Referral None recorded. Procedures None recorded. Surgeries None recorded. Imaging None recorded. Medication Orders None recorded. Patient TargetsNo targets recorded. Patient InstructionsNo instructions recorded. Reason for Referral None Reported. Results Created Date Observation Date Name Description Value Unit Range Abnormal Flag Note LastModifiedBy Organization Detail LastModifiedTime 11/15/19 24 08/28/2019 imagi ng/di agnos tic resul t No observ ation record ed. [email or web address] Not Available 02:15:11 11/15/19 24 09/09/2018 imagi ng/di agnos tic resul t No observ ation record ed. [email or web address] Not Available 02:15:16 11/15/19 24 08/28/2019 audio gram No observ ation record ed. [email or web address] Not Available 02:15:46 Result Notes None recorded. Problems Name Problem SNOMED Code Status Onset Date Resolution Date Notes Provider Name and Address Organization Details Recorded Time Impacted cerumen 36179209 Active 2019 Impacted cerumen; Note: Date Diagnosed : 02/27/2020 10:18 AM (380.4) Not Available [facility] 4 03:00:23 Impacted cerumen in right ear [id number] 61629 Active 2020 Impacted cerumen, right ear; Note: Date Diagnosed : 08/27/2020 9:50 AM (H61.21) Not Available [facility] 4 03:00:21 Impacted cerumen of bilateral ears [id number] 39694 Active 2019 Impacted cerumen, bilateral ; Note: Date Diagnosed : 08/28/2019 1:33 PM (H61.23) Not Available [facility] 4 03:00:22 Sensorine ural hearing loss of bilateral ears 316669899 Active 2019 Sensorine ural hearing loss, bilateral ; Note: Date Diagnosed : 08/28/2019 2:00 PM (H90.3) Not Available [facility] 4 03:00:23 Problem Notes None recorded. Procedures Surgical History Date Name Laterality Status Provider Name and Address Organization Details Recorded Time 4 Cerumen removal without microscope bilat completed JUSTINE BLACKBURN PA-C [address] [place] [address], [phone], [facility] - [facility] 02/27/2024 13:11:20 4 Cerumen removal without microscope bilat completed JUSTINE BLACKBURN PA-C [address] [place] [address], [phone], [facility] - [facility] 11/12/2023 13:19:35 Imaging Results Imaging Date Name Status [facility]Modified by [facility] Details LastModified Time 08/28/2019 imaging[facility]diagno stic result [email or web address] Information not available 11/15/2023 02:15:11 09/09/2018 imaging/diagno stic result completed Information not available 11/15/2023 02:15:16 08/28/2019 audiogram completed Information not available 11/15/2023 02:15:46 Procedure Notes None recorded. Medical Equipment None Reported. Allergies Allergen ID Allergen Name Allergen Category Reaction Reaction Severity Criticality Documentation Date Start Date Code Code System Note Provider Name and Address Organization Details Recorded Time 453003 penicilli n V potassium medicatio n other Not available Not available 08/07/2023 5 RxNorm React ion: unkno wn, unspe cifie d;; Not Available [facility] 01:11:55 Medications Name Sig Start Date Stop Date Status Note LastModified by Organization Details LastModified Time furosemide 40 mg tablet active Not Available Not Available Not Available hydralazin e 10 mg tablet 2019 active Medicatio n ID: [id number] Du ration Value: 30 Brand Name: hydralazi ne Send Method: E-Prescri bed Subs Allowed: subs OK Medica tionGener icName: hydralazi ne Not Available Not Available Not Available hydralazin e 25 mg tablet TAKE 1 TABLET BY MOUTH THREE TIMES DAILY active Not Available Not Available No t Available amlodipine 5 mg tablet TAKE 1 TABLET BY MOUTH TWICE DAILY active Not Available Not Available No t Available spironolac tone 25 mg tablet TAKE 1 TABLET BY MOUTH EVERY DAY active Not Available Not Available No t Available simvastati n 40 mg tablet TAKE 1 TABLET BY MOUTH EVERY DAY active Not Available Not Available No t Available ketorolac 0.5 % eye drops 2019 active Medicatio n ID: [id number] Du ration Value: 18 Brand Name: ketorolac Send Method: E-Prescri bed Subs Allowed: subs OK Medica tionGener icName: ketorolac Not Available Not Available Not Available isosorbide mononitrat e ER 60 mg tablet,ext ended release 24 hr TAKE 1 TABLET BY MOUTH EVERY DAY active Not Available Not Available No t Available amlodipine 10 mg tablet 2019 active Medicatio n ID: [id number] Du ration Value: 90 Brand Name: amlodipin e Send Method: E-Prescri bed Subs Allowed: subs OK Medica tionGener icName: amlodipin e Not Available Not Available Not Available dorzolamid e 22.3 mg-timolol 6.8 mg/mL eye drops 2019 active Medicatio n ID: [id number] Du ration Value: 30 Brand Name: asha esqueda Send Method: E-Prescri bed Subs Allowed: subs OK Medica tionGener icName: asha germain l Not Available Not Available Not Available calcitriol 0.25 mcg capsule TAKE 1 CAPSULE BY MOUTH DAILY DIRECTED active Not Available Not Available No t Available lactulose 10 gram/15 mL oral solution TAKE 15 ML BY MOUTH TWICE DAILY active Not Available Not Available No t Available diflupredn ate 0.05 % eye drops INSTILL 1 DROP IN BOTH EYES 6 TIMES A DAY DIRECTED active Not Available Not Available No t Available Vitals Date Recorded Body height Body mass index (BMI) Body weight Provider Name and Address Organization Details Last Updated DateTime 11/12/2023 149.86 cm 31.9 kg/m2 37862.59 g Dominique Urrutia [facility] 11/12/2023 13:23:14 Date Recorded Body height Body mass index (BMI) Body weight Provider Name and Address Organization Details Last Updated DateTime 02/27/2024 149.86 cm 31.5 kg/m2 63305.41 g Juan José Espinoza [facility] 02/27/2024 13:12:30 Social History None recorded. Functional Status None recorded. Mental Status None recorded. Family History Nothing Reported. Medical History No medical history recorded. Gynecological HistoryNo gynecological history recorded. Obstetrics History GPAL:G 0 P 0 0 0 0 Past Encounters Encounter ID Performer Location Encounter Start Date Encounter Closed Date Diagnosis/Indication Diagnosis SNOMED-CT Code Diagnosis ICD10 Code Diagnosis Note [id number] CALIXTO ZHOU MD [facility] [address] [address] 11/12/2023 13:12:27 11/12/2023 13:46:27 Impacted cerumen of bilateral ears [id number] 965179 H61.23 [id number] CATIE SHEFFIELD MD [facility] [address] [place] [address] 02/27/2024 12:59:59 02/27/2024 15:32:35 Impacted cerumen of bilateral ears 0860437606 872142 H61.23 Health Concerns Section Related Observation LastModified by Organization Detai ls LastModified Time None Recorded Concern Status LastModified by Organization Details LastModified Time None Recorded Advance Directives Directive None Recorded Payers Encounter Date Sequence Insurance Name Policy Number Policy Chan Covered Member ID Chan Member ID Guarantor Name 11/12/2023 2 [facility]: [employer] ([place]O) Hollis Green [id number] Kristen Green 11/12/2023 1 [place]: [employer] Kristen Green [id number] Kristen Green 02/27/2024 2 [facility]: [employer] (PPO) Hollis Green [id number] Kristen Green 02/27/2024 1 [employer] [place]: [employer] Kristen Green [id number] Kristen Green Notes Date Note Type Note Provider Name and Address Organization Details Recorded Time 11/12/2023 text/html 83 year old female presents for cerumen removal. No concerns today. CALIXTO CAR MD [address] [place] [address], [phone], [facility] 11/12/2023 17:09:47 02/27/2024 text/html 84 year old female presents for cerumen removal. No concerns today. CATIE SHEFFIELD MD [address] [place] [address], [phone], [facility] 02/27/2024 17:40:20 OBGyn Episode No OBEpisode recorded.
--- OUTSIDE RECORDS SUMMARY | 2024-05-16 14:07 | XMS_ITS | Clinical Summary ---
Author Organization [address] Address [address] [place] [address] Phone Care Team Providers Care Benefits Counselor Name Role Phone Rahat Riley MD Primary Care Provider [phone] Medications hydrALAZINE (APRESOLINE) 25 mg tablet Take 1 tablet (25 mg total) by mouth 3 (three) times a day. 270 tablet 3 04/02/2024 Active Active Problems Problem Noted Date Diagnosed Date Sinus bradycardia 09/07/2022 Overview (04/02/2024): Relative bradycardia by Holter monitor. No prolonged pauses or syncope. Last Assessment & Plan: Heart rate today on the ECG is quite normal and given the lack of syncope or presyncope I will continue to monitor clinically for any worsening of bradycardia. No clear indication for pacemaker at this stage. Left ventricular hypertrophy 09/07/2022 Overview (04/02/2024): LVH voltage by echocardiogram. 11 to 12 mm thickness. Last Assessment & Plan: LVH voltage but no diastolic heart failure. She will continue a low-sodium diet HAN on CPAP 12/30/2017 Hyperlipidemia 05/02/2016 Hypertension 05/02/2016 Overview (04/02/2024): Primary hypertension. Is followed by Dr. Mack Azevedo from nephrology. Mild left ventricular hypertrophy by echocardiography. Treated with amlodipine, hydralazine and spironolactone. Last Assessment & Plan: Kristen continues to have elevated blood pressures on her current medications and diet. I am going to increase her hydralazine from 20 mg twice a day to 25 mg 3 times daily and she will continue to maintain a blood pressure log and communicate with Dr. Ferrera. She will continue a low-sodium diet and avoidance of excessive caffeine or chronic NSAID use. Encounters Date Type Department Care Team Description 04/01/2024 Telephone [facility] [address] [place] [address] oCllins oPllock MD Med Refill (hydralazine) from Last 3 Months Medical History Medical History Date Comments Glaucoma 05/02/2016 DX:Glaucoma Hyperlipidemia 05/02/2016 DX:Hyperlipidemi a Hypertension 05/02/2016 DX:Hypertension HAN on CPAP 12/30/2017 DX:HAN on CPAP Osteoarthritis 05/02/2016 DX:Osteoarthriti s Proteinuria 05/02/2016 DX:Proteinuria Spinal stenosis 05/02/2016 DX:Spinal stenos is Social History Tobacco Use Types Packs/Day Years Used Date Smoking Tobacco: Never Smokeless Tobacco: Never Alcohol Use Standard Drinks/Week Comments No 0 (1 standard drink = 0.6 oz pur e alcohol) Comments Unknown Sex and Gender Information Value Date Recorded Sex Assigned at Not on file Legal Sex Female 6:06 PM EST Gender Identity Not on file Sexual Orientation Not on file Obstetrics History Last Filed Vital Signs Vital Sign Reading Time Taken Comments Blood Pressure 174/50 12/20/2023 12:55 PM EDT Pulse 66 12/20/2023 12:55 PM EDT Temperature - - Respiratory Rate - - Oxygen Saturation - - Inhaled Oxygen Concentration - - Weight 75.8 kg (167 lb) 12/20/2023 12:55 PM EDT Height 147.3 cm (4' 10 ) 12/20/2023 12:55 PM EDT Body Mass Index 34.9 12/20/2023 12:55 PM EDT Plan of Treatment Health Maintenance Due Date Last Done Comments RSV Immunization Patients 60+ Years Old (1 - 1-dose 75+ series) 2013 Depression Screening 02/25/2022 Falls Risk Assessment 02/25/2022 Medicare Annual Wellness Visit 02/25/2022 Osteoporosis Screening (Bone Density Screening) 02/25/2022 Social Influencers of Health Screening 02/25/2022 Hypertension/CHF/CAD Annual BMP Blood Test 04/16/2025 04/16/2024, 08/15/2023 Cholesterol Screening (Lipid Panel) 04/16/2029 04/16/2024 DTaP,Tdap,and Td Vaccines (3 - Td or Tdap) 08/13/2030 08/13/2020, 11/28/2011 MMR Vaccines Aged Out 01/09/2012 No longer eligi ble based on patient's age to complete this topic Zoster Vaccines Completed 06/09/2023, 10/02/2017 Pneumococcal Vaccine: 50+ Years Completed 06/13/2023, 11/18/2015, 11/01/2014, Additional history exists COVID-19 Vaccine Completed 11/30/2023, 12/2023, 12/14/2022, Additional history exists Influenza Vaccine Completed 11/30/2023, , 11/20/2021, Additional history exists HIB Vaccines Aged Out No longer eligi ble based on patient's age to complete this topic HPV Vaccines Aged Out No longer eligi ble based on patient's age to complete this topic Hepatitis A Vaccines Aged Out No long er eligible based on patient's age to complete this topic Hepatitis B Vaccines Aged Out No long er eligible based on patient's age to complete this topic IPV Vaccines Aged Out No longer eligi ble based on patient's age to complete this topic Meningococcal ACWY Vaccine Aged Out N o longer eligible based on patient's age to complete this topic Meningococcal B Vacine Aged Out No lo nger eligible based on patient's age to complete this topic RSV Immunization Patients Under 20 months Aged Out No longer eligible based on patient's age to complete this topic Varicella Vaccines Aged Out No longer eligible based on patient's age to complete this topic Procedures Procedure Name Priority Date/Time Associated Diagnosis Comments PROTEIN AND CREATININE WITH RATIO, URINE Routine 04/16/2024 8:54 AM EST Chronic kidney disease (CKD) stage G3b/A1, moderately decreased glomerular filtration rate (GFR) between 30-44 mL/min/1.73 square meter and albuminuria creatinine ratio less than 30 mg/g (CMS/HCC) Raynaud's syndrome Nephrogenous proteinuria Obstructive sleep apnea (adult) (pediatric) Localized edema 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, 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) Essential hypertension, malignant Hyperpotassemia COMPREHENSIVE METABOLIC PANEL Routine 04/16/2024 8:47 AM EST Hypertension, unspecified type CBC WITH AUTO DIFFERENTIAL Routine 04/16/2024 8:47 AM EST Chronic kidney disease (CKD) stage G3b/A1, moderately decreased glomerular filtration rate (GFR) between 30-44 mL/min/1.73 square meter and albuminuria creatinine ratio less than 30 mg/g (CMS/HCC) Raynaud's syndrome Nephrogenous proteinuria Obstructive sleep apnea (adult) (pediatric) Localized edema 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, 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) Essential hypertension, malignant Hyperpotassemia THYROID STIMULATING HORMONE WITH REFLEX TO FREE T4 AND FREE T3 Routine 04/16/2024 8:47 AM EST Chronic kidney disease (CKD) stage G3b/A1, moderately decreased glomerular filtration rate (GFR) between 30-44 mL/min/1.73 square meter and albuminuria creatinine ratio less than 30 mg/g (CMS/HCC) Raynaud's syndrome Nephrogenous proteinuria Obstructive sleep apnea (adult) (pediatric) Localized edema 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, 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) Essential hypertension, malignant Hyperpotassemia HEMOGLOBIN A1C Routine 04/16/2024 8:47 AM EST Chronic kidney disease (CKD) stage G3b/A1, moderately decreased glomerular filtration rate (GFR) between 30-44 mL/min/1.73 square meter and albuminuria creatinine ratio less than 30 mg/g (CMS/HCC) Raynaud's syndrome Nephrogenous proteinuria Obstructive sleep apnea (adult) (pediatric) Localized edema 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, 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) Essential hypertension, malignant Hyperpotassemia Other specified abnormal findings of blood chemistry LIPID PANEL WITH REFLEX TO DIRECT LDL Routine 04/16/2024 8:47 AM EST Chronic kidney disease (CKD) stage G3b/A1, moderately decreased glomerular filtration rate (GFR) between 30-44 mL/min/1.73 square meter and albuminuria creatinine ratio less than 30 mg/g (CMS/HCC) Raynaud's syndrome Nephrogenous proteinuria Obstructive sleep apnea (adult) (pediatric) Localized edema 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, 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) Essential hypertension, malignant Hyperpotassemia CBC AND DIFFERENTIAL Routine 04/16/2024 8:47 AM EST Chronic kidney disease (CKD) stage G3b/A1, moderately decreased glomerular filtration rate (GFR) between 30-44 mL/min/1.73 square meter and albuminuria creatinine ratio less than 30 mg/g (CMS/HCC) Raynaud's syndrome Nephrogenous proteinuria Obstructive sleep apnea (adult) (pediatric) Localized edema 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, 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) Essential hypertension, malignant Hyperpotassemia VITAMIN D 25 HYDROXY Routine 04/16/2024 8:47 AM EST Chronic kidney disease (CKD) stage G3b/A1, moderately decreased glomerular filtration rate (GFR) between 30-44 mL/min/1.73 square meter and albuminuria creatinine ratio less than 30 mg/g (CMS/HCC) Raynaud's syndrome Nephrogenous proteinuria Obstructive sleep apnea (adult) (pediatric) Localized edema 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, 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) Essential hypertension, malignant Hyperpotassemia PARATHYROID HORMONE INTACT Routine 04/16/2024 8:47 AM EST Chronic kidney disease (CKD) stage G3b/A1, moderately decreased glomerular filtration rate (GFR) between 30-44 mL/min/1.73 square meter and albuminuria creatinine ratio less than 30 mg/g (CMS/HCC) Raynaud's syndrome Nephrogenous proteinuria Obstructive sleep apnea (adult) (pediatric) Localized edema 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, 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) Essential hypertension, malignant Hyperpotassemia PHOSPHORUS Routine 04/16/2024 8:47 AM EST Chronic kidney disease (CKD) stage G3b/A1, moderately decreased glomerular filtration rate (GFR) between 30-44 mL/min/1.73 square meter and albuminuria creatinine ratio less than 30 mg/g (CMS/HCC) Raynaud's syndrome Nephrogenous proteinuria Obstructive sleep apnea (adult) (pediatric) Localized edema 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, 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) Essential hypertension, malignant Hyperpotassemia MAGNESIUM Routine 04/16/2024 8:47 AM EST Chronic kidney disease (CKD) stage G3b/A1, moderately decreased glomerular filtration rate (GFR) between 30-44 mL/min/1.73 square meter and albuminuria creatinine ratio less than 30 mg/g (CMS/HCC) Raynaud's syndrome Nephrogenous proteinuria Obstructive sleep apnea (adult) (pediatric) Localized edema 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, 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) Essential hypertension, malignant Hyperpotassemia URIC ACID Routine 04/16/2024 8:47 AM EST Chronic kidney disease (CKD) stage G3b/A1, moderately decreased glomerular filtration rate (GFR) between 30-44 mL/min/1.73 square meter and albuminuria creatinine ratio less than 30 mg/g (CMS/HCC) Raynaud's syndrome Nephrogenous proteinuria Obstructive sleep apnea (adult) (pediatric) Localized edema 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, 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) Essential hypertension, malignant Hyperpotassemia from Last 3 Months Results * (ABNORMAL) Protein and creatinine with ratio, urine (04/16/2024 8:54 AM EST) Protein, Urine 87 mg/dL LAB CHEMISTRY METHOD 04/16/2024 10:23 AM [facility] Prot/Creat, Ur 1.53(H) <=0.20 mg/mg creat LAB CHEMISTRY METHOD 04/16/2024 10:23 AM EST [facility] Creatinine, Urine 57.0 mg/dL LAB CHEMISTRY METHOD 04/16/2024 10:23 AM [facility] Urine Urine specimen obtained by clean catch procedure / Unknown Non-blood Collection / Unknown 04/16/2024 8:54 AM EST 04/16/2024 9:33 AM EST us Ravi Ferrera MD LAB URINE ORDERABLES Final Result Performing Organization Address [facility]/ZIP Co de Phone Number [facility] [address] [place] [address], [place] [phone] * Thyroid stimulating hormone with reflex to free t4 and free t3 (04/16/2024 8:47 AM EST) [facility] TSH 3.04 0.40 - 4.00 mcIU/mL LAB CHEMISTRY METHOD 04/16/2024 10:30 AM EST [facility] Blood Venous blood specimen / Unknown Venipuncture / Unknown 04/16/2024 8:47 AM EST 04/16/2024 9:36 AM EST us Ravi Ferrera MD LAB BLOOD ORDERABLES Final Result Performing Organization Address [facility] Co de Phone Number [facility] [address] [place] [address], [place] [phone] * Lipid panel with reflex to direct LDL (04/16/2024 8:47 AM EST) [facility] Cholesterol 163 0 - 200 mg/dL LAB CHEMISTRY METHOD 04/16/2024 10:27 AM [facility] Triglycerides 80 0 - 150 mg/dL LAB CHEMISTRY METHOD 04/16/2024 10:27 AM [facility] HDL 91 >=40 mg/dL LAB CHEMISTRY METHOD 04/16/2024 10:27 AM [facility] LDL Calculated 56 0 - 100 mg/dL LAB CHEMISTRY METHOD 04/16/2024 10:27 AM [facility] VLDL Cholesterol Yo 16 mg/dL LAB CHEMISTRY METHOD 04/16/2024 10:27 AM [facility] Non HDL Chol. (LDL+VLDL) 72 <145 mg/dL LAB CHEMISTRY METHOD 04/16/2024 10:27 AM [facility] Chol/HDL Ratio 1.8 0.0 - 4.4 LAB CHEMISTRY METHOD 04/16/2024 10:27 AM [facility] Blood Venous blood specimen / Unknown Venipuncture / Unknown 04/16/2024 8:47 AM EST 04/16/2024 9:36 AM EST us Ravi Ferrera MD LAB BLOOD ORDERABLES Final Result [facility] [address] [place] [address], * (ABNORMAL) CBC auto differential (04/16/2024 8:47 AM EST) WBC 5.5 4.8 - 10.8 K/mcL LAB HEMETOLOGY METHOD 04/16/2024 9:42 AM [facility] RBC 3.50(L) 3.80 - 4.80 M/mcL LAB HEMETOLOGY METHOD 04/16/2024 9:42 AM [facility] Hemoglobin 11.4(L) 11.5 - 16.0 g/dL LAB HEMETOLOGY METHOD 04/16/2024 9:42 AM [facility] Hematocrit 37.1 35.0 - 47.0 % LAB HEMETOLOGY METHOD 04/16/2024 9:42 AM [facility] MCV 105.1(H) 79.0 - 98.0 FL LAB HEMETOLOGY METHOD 04/16/2024 9:42 AM [facility] MCH 32.3(H) 27.0 - 32.0 pcg LAB HEMETOLOGY METHOD 04/16/2024 9:42 AM [facility] MCHC 30.7(L) 32.0 - 37.0 g/dL LAB HEMETOLOGY METHOD 04/16/2024 9:42 AM [facility] RDW 13.2 11.0 - 15.0 % LAB HEMETOLOGY METHOD 04/16/2024 9:42 AM [facility] Platelets 155 130 - 400 K/mcL LAB HEMETOLOGY METHOD 04/16/2024 9:42 AM [facility] MPV 10.6 7.0 - 11.0 FL LAB HEMETOLOGY METHOD 04/16/2024 9:42 AM [facility] NRBC 0.0 <1.0 % LAB HEMETOLOGY METHOD 04/16/2024 9:42 AM [facility] NRBC Absolute 0.00 <0.10 K/mcL LAB HEMETOLOGY METHOD 04/16/2024 9:42 AM [facility] Neutrophils Relative 63.7 % LAB HEMETOLOGY METHOD 04/16/2024 9:42 AM [facility] Lymphocytes Relative 17.9 % LAB HEMETOLOGY METHOD 04/16/2024 9:42 AM [facility] Monocytes Relative 12.9 % LAB HEMETOLOGY METHOD 04/16/2024 9:42 AM [facility] Eosinophils Relative 4.6 % LAB HEMETOLOGY METHOD 04/16/2024 9:42 AM [facility] Basophils Relative 0.7 % LAB HEMETOLOGY METHOD 04/16/2024 9:42 AM [facility] Immature Granulocytes Relative 0.2 % LAB HEMETOLOGY METHOD 04/16/2024 9:42 AM [facility] Neutrophils Absolute 3.50 1.50 - 7.00 K/mcL LAB HEMETOLOGY METHOD 04/16/2024 9:42 AM [facility] Lymphocytes Absolute 0.98(L) 1.00 - 5.00 K/mcL LAB HEMETOLOGY METHOD 04/16/2024 9:42 AM [facility] Monocytes Absolute 0.71 0.20 - 1.00 K/mcL LAB HEMETOLOGY METHOD 04/16/2024 9:42 AM EST [facility] Eosinophils Absolute 0.25 0.00 - 0.50 K/[facility] LAB HEMETOLOGY METHOD 04/16/2024 9:42 AM EST [facility] Basophils Absolute 0.04 0.00 - 0.20 K/[facility] LAB HEMETOLOGY METHOD 04/16/2024 9:42 AM EST [facility] Immature Granulocytes Absolute 0.01 0.00 - 0.03 K/[facility] LAB HEMETOLOGY METHOD 04/16/2024 9:42 AM EST [facility] Blood Venous blood specimen / Unknown Venipuncture / Unknown 04/16/2024 8:47 AM EST 04/16/2024 9:35 AM EST us Ravi Ferrera MD LAB BLOOD ORDERABLES Final Result [facility] [address] [place] [address], [place] [phone] * Vitamin D 25 hydroxy (04/16/2024 8:47 AM EST) [facility] Vit D, 25-Hydroxy 58.3 30.0 - 80.0 ng/mL LAB CHEMISTRY METHOD 04/16/2024 10:30 AM EST [facility] Blood Venous blood specimen / Unknown Venipuncture / Unknown 04/16/2024 8:47 AM EST 04/16/2024 9:36 AM EST us Ravi Ferrera MD LAB BLOOD ORDERABLES Final Result [facility] [address] [place] [address], [place] [phone] * (ABNORMAL) Uric acid (04/16/2024 8:47 AM EST) Uric Acid 7.9(H) 3.1 - 7.8 mg/dL LAB CHEMISTRY METHOD 04/16/2024 10:23 AM EST [facility] Blood Venous blood specimen / Unknown Venipuncture / Unknown 04/16/2024 8:47 AM EST 04/16/2024 9:36 AM EST us Ravi Ferrera MD LAB BLOOD ORDERABLES Final Result Performing Organization Address [facility] de Phone Number [facility] [address] [place] [address], [place] [phone] * (ABNORMAL) Phosphorus (04/16/2024 8:47 AM EST) [facility] Phosphorus 4.8(H) 2.5 - 4.5 mg/dL LAB CHEMISTRY METHOD 04/16/2024 10:23 AM EST [facility] Blood Venous blood specimen / Unknown Venipuncture / Unknown 04/16/2024 8:47 AM EST 04/16/2024 9:36 AM EST us Ravi Ferrera MD LAB BLOOD ORDERABLES Final Result Performing Organization Address [facility] de Phone Number [facility] [address] [place] [address], [place] [phone] * (ABNORMAL) Parathyroid hormone intact (04/16/2024 8:47 AM EST) [facility] PTH 104.7(H) 18.5 - 88.0 pcg/mL LAB CHEMISTRY METHOD 04/16/2024 10:35 AM EST [facility] Blood Venous blood specimen / Unknown Venipuncture / Unknown 04/16/2024 8:47 AM EST 04/16/2024 9:36 AM EST us Ravi Ferrera MD LAB BLOOD ORDERABLES Final Result Performing Organization Address City/[facility]/ZIP Co de Phone Number [facility] [address] [place] [address], [place] [phone] * Magnesium (04/16/2024 8:47 AM EST) [facility] Magnesium 2.4 1.9 - 2.6 mg/dL LAB CHEMISTRY METHOD 04/16/2024 10:23 AM EST [facility] Blood Venous blood specimen / Unknown Venipuncture / Unknown 04/16/2024 8:47 AM EST 04/16/2024 9:36 AM EST us Ravi Ferrera MD LAB BLOOD ORDERABLES Final Result [facility] [address] [place] [address], [place] [phone] * Hemoglobin A1c (04/16/2024 8:47 AM EST) [facility] Hemoglobin A1C 5.4 <6.5 % LAB CHEMISTRY METHOD 04/16/2024 11:41 AM EST [facility] Mean Bld Glu Estim. 108 mg/dL LAB CHEMISTRY METHOD 04/16/2024 11:41 AM EST [facility] Blood Venous blood specimen / Unknown Venipuncture / Unknown 04/16/2024 8:47 AM EST 04/16/2024 9:35 AM EST us Ravi Ferrera MD LAB BLOOD ORDERABLES Final Result [facility] [address] [place] [address], [place] [phone] * (ABNORMAL) Comprehensive metabolic panel (04/16/2024 8:47 AM EST) [facility] Sodium 140 133 - 145 mmol/L LAB CHEMISTRY METHOD 04/16/2024 10:24 AM EST [facility] Potassium 4.6 3.5 - 5.5 mmol/L LAB CHEMISTRY METHOD 04/16/2024 10:24 AM [facility] Chloride 112(H) 96 - 110 mmol/L LAB CHEMISTRY METHOD 04/16/2024 10:24 AM [facility] CO2 25 21 - 32 mmol/L LAB CHEMISTRY METHOD 04/16/2024 10:24 AM [facility] Anion Gap 3 3 - 11 LAB CHEMISTRY METHOD 04/16/2024 10:24 AM [facility] Glucose 89 70 - 100 mg/dL LAB CHEMISTRY METHOD 04/16/2024 10:24 AM [facility] BUN 59(H) 5 - 25 mg/dL LAB CHEMISTRY METHOD 04/16/2024 10:24 AM [facility] Creatinine 1.94(H) 0.50 - 1.10 mg/dL LAB CHEMISTRY METHOD 04/16/2024 10:24 AM [facility] eGFR 25(L) >=60 mL/min/1. 73m2 LAB CHEMISTRY METHOD 04/16/2024 10:24 AM [facility] Comment:Calculation based on the??Chronic Kidney Disease Epidemiology Collaboration (CKD-EPI) equation refit??without adjustment for race. BUN/Creatinine Ratio 30.4 LAB CHEMISTRY METHOD 04/16/2024 10:24 AM [facility] Calcium 9.5 8.5 - 10.5 mg/dL LAB CHEMISTRY METHOD 04/16/2024 10:24 AM [facility] AST (SGOT) 33 10 - 42 unit/L LAB CHEMISTRY METHOD 04/16/2024 10:24 AM [facility] ALT (SGPT) 27 10 - 60 unit/L LAB CHEMISTRY METHOD 04/16/2024 10:24 AM [facility] Alkaline Phosphatase 57 42 - 121 unit/L LAB CHEMISTRY METHOD 04/16/2024 10:24 AM [facility] Total Protein 7.3 6.0 - 8.0 g/dL LAB CHEMISTRY METHOD 04/16/2024 10:24 AM EST [facility] Albumin 4.0 3.2 - 5.0 g/dL LAB CHEMISTRY METHOD 04/16/2024 10:24 AM EST [facility] Total Bilirubin 0.5 0.0 - 1.4 mg/dL LAB CHEMISTRY METHOD 04/16/2024 10:24 AM EST [facility] Blood Venous blood specimen / Unknown Venipuncture / Unknown 04/16/2024 8:47 AM EST 04/16/2024 9:36 AM EST us Collins Pollock MD LAB BLOOD ORDERABLES Final Res ult [facility] [address] [place] [address], [place] [phone] from Last 3 Months Insurance MEDICARE [facility] Member Subscriber Plan / Payer (Ef fective 2024-Present) Name:Kristen Green Relation to Subscriber:Spouse Name:ARIANNACATHERINE Dedrick Date of :1934 Address: [address] [place] [id number] Payer ID:[id number] Group ID:[id number] Type:Not on file Address: [address] [place] [address] Care Teams Benefits Counselor Relationship Specialty Start Date End Date Lainer, Rahat, MD [address] [place] [address] PCP - General Internal Medicine 06/21/20
== END 2024-05-16 13:37 | disposition home or self-care (01) ==
LOC: HO.XRAY 13:36
PROVIDERS: PCP Internal Medicine; Visit Provider Internal Medicine
DX: Z13.89 Encounter for screening for other disorder (principal)

== ENCOUNTER 2024-06-04 09:39 | Outpatient (REF) | payer MEDICARE, BC, SELFPAY ==
--- NOTE | ~2024-06-04 | US_ITS ---
EXAMINATION: Noninvasive assessment of the right lower extremity with ARTERIAL DUPLEX CLINICAL INFORMATION: Peripheral vascular disease. Hypertension. Hyperlipidemia. TECHNIQUE: Duplex Doppler techniques with waveform analysis and measurement of velocities in the right common femoral, profunda femoris, superficial femoral, popliteal and tibial arteries were performed... COMPARISON: None FINDINGS: DIRECT DUPLEX DOPPLER FINDINGS: RIGHT LEG: Common femoral artery: 203 cm/s, phasicity: Biphasic. Spectral broadening. Profunda femoris artery: 166 cm/s, phasicity: Biphasic. Spectral broadening. Superficial femoral artery (proximal): 275 cm/s, phasicity: Biphasic. Spectral broadening. Superficial femoral artery (mid): 222 cm/s, phasicity: Biphasic. Spectral broadening. Superficial femoral artery (distal): 148 cm/s, phasicity: Biphasic. Spectral broadening. Popliteal artery: 227 cm/s, phasicity: Biphasic. Spectral broadening. Posterior tibial artery: 133 cm/s, phasicity: Monophasic. Spectral broadening. Peroneal artery: 73 cm/s, phasicity: Biphasic. Spectral broadening. Anterior tibial artery: 138 cm/s, phasicity: Biphasic. Spectral broadening. Dorsalis pedis artery: 44 cm/s, phasicity:Biphasic. Spectral broadening. Arrhythmia episodes during the exam. US/US arterial duplex LE RT IMPRESSION: Moderate inflow disease throughout the right lower extremity and disease right posterior tibialis artery. Electronically signed by: Ritesh May MD 06/04/2024 11:22 AM EDT
--- OUTSIDE RECORDS SUMMARY | 2024-06-04 10:35 | XMS_ITS | Encounter Summary ---
Author Organization [facility] Address [address] [facility] [address] [place] [address] Phone Care Team Providers Care Glassware Verifier Name Role Phone Rahat Riley MD Primary Care Provider [phone] Reason for Visit * Reason Onset Date Comments Med Refill 01/17/2021 Encounter Details Date Type Department Care Team (Late st Contact Info) Description 01/17/2021 Refill [facility] [address] [place] [phone] Rocio Barajas Social History Tobacco Use Types [...] Visit [facility] [address] [facility] [address] [place] [phone] Ravi Ferrera MD [address] [facility] [address] [place] [phone] documented as of this encounter Visit Diagnoses Not on filedocumented in this encounter Care Teams Glassware Verifier Relationship Specialty Start Date End Date Rahat Riley MD [address] [place], [place] PCP - General 04/05/20 documented as of this encounter
--- OUTSIDE RECORDS SUMMARY | 2024-06-04 10:36 | XMS_ITS | Clinical Summary ---
Author Organization [facility] Address [address] [facility] [address] [place] [address] Phone Care Team Providers Care Tsa Screener Name Role Phone Rahat Riley MD Primary Care Provider [phone] Allergies Active Allergy Reactions Criticality Noted Date [...] 09/01/2020 Anemia in chronic kidney disease 09/01/2020 Stage 3b chronic kidney disease 09/01/2020 Hyperkalemia 09/01/2020 Hyperparathyroidism due to renal insufficiency 0 09/01/2020 Hypertensive renal disease 09/01/2020 Localized edema 09/01/2020 Obesity 09/01/2020 Proteinuria 09/01/2020 Deep venous thrombosis <Unspecified side> 2020 Hypertension 09/01/2020 Raynaud's phenomenon 09/01/2020 Gastroesophageal reflux disease 09/01/2020 Obstructive sleep apnea syndrome 09/01/2020 Resolved Problems Problem Noted Date Diagnosed Date Resolved Date Bradycardia 09/01/2020 06/04/2024 Encounters Date Type Department Care Team Description 04/22/2024 Documentation Only [facility] [address] [phone] Ravi Ferrera MD No Show (No show/) 04/16/2024 Orders Only [facility] [address] [phone] Ravi Ferrera MD from Last 3 Months [...] Office Visit [facility] [address] [phone] Ravi Ferrera MD [address] [phone] Health Maintenance Due Date Last Done Comments Influenza Vaccine (#1) 2023 , 11/17/2013, 12/24/2012 Pneumococcal Vaccine: 65+ Years Completed [...] 8:54 AM EST) Protein, Ur 87 mg/dL [facility] Urine Protein/Creati nine Ratio 1.53(H) <=0.20 mg/mg creat [facility] Creatinine, Urine 57.0 mg/dL [facility] 04/16/2024 8:54 AM EST 04/16/2024 9:33 AM EST us Ravi Dicampli MD LAB URINE ORDERABLES Final Re sult Performing Organization Address [facility]/ZIP Co de Phone Number [facility] [address] [place] [address] * TSH+T3+Free T4+T3 Free (04/16/2024 8:47 AM EST) TSH 3.04 0.40 - 4.00 mcIU/mL [facility] 04/16/2024 8:47 AM EST 04/16/2024 9:36 AM EST us Ravi Ferrera MD LAB [id number] SOLICITED RESULTS Final Result Performing Organization Address [facility] de Phone Number [facility] [address] [place] [address] * Lipid Panel w/Rfl Direct LDL (04/16/2024 8:47 AM EST) Cholesterol 163 0 - 200 mg/dL [facility] Triglycerides 80 0 - 150 mg/dL [facility] HDL 91 >=40 mg/dL [facility] LDL Calculated 56 0 - 100 mg/dL [facility] VLDL Cholesterol Yo 16 mg/dL [facility] Total Ski-GWY-Ruyn (LDL+VLDL) 72 <145 mg/dL [facility] Chol/HDL Ratio 1.8 0.0 - 4.4 [facility] 04/16/2024 8:47 AM EST 04/16/2024 9:36 AM EST us Ravi Ferrera MD LAB BLOOD ORDERABLES Final Re sult Performing Organization Address [facility] Co de Phone Number [facility] [address] [place] [address] * (ABNORMAL) CBC auto differential (04/16/2024 8:47 AM EST) WBC 5.5 4.8 - 10.8 K/[facility] RBC 3.50(L) 3.80 - 4.80 M/[facility] Hgb 11.4(L) 11.5 - 16.0 g/dL [facility] Hematocrit 37.1 35.0 - 47.0 % [facility] MCV 105.1(H) 79.0 - 98.0 FL [facility] MCH 32.3(H) 27.0 - 32.0 pcg [facility] MCHC 30.7(L) 32.0 - 37.0 g/dL [facility] RDW 13.2 11.0 - 15.0 % [facility] Platelets 155 130 - 400 K/[facility] MPV 10.6 7.0 - 11.0 [facility] nRBC Count 0.0 <1.0 % [facility] NRBC Absolute 0.00 <0.10 K/[facility] Bands Relative 63.7 % [facility] Lymphocyte Realative Percent 17.9 % [facility] Monocyte Relative Percent 12.9 % [facility] Eosinophil Relative Percent 4.6 % [facility] Basophils Relative Diff 0.7 % [facility] Immature Granulocytes 0.2 % [facility] Neutrophils Absolute 3.50 1.50 - 7.00 K/[facility] Lymphocytes Absolute 0.98(L) 1.00 - 5.00 K/[facility] Monocytes Absolute 0.71 0.20 - 1.00 K/[facility] Eosinophil Absolute 0.25 0.00 - 0.50 K/[facility] Basophil ABS 0.04 0.00 - 0.20 K/[facility] Immature Grans (Absolute) 0.01 0.00 - 0.03 K/[facility] 04/16/2024 8:47 AM EST 04/16/2024 9:35 AM EST us Ravi Ferrera MD LAB BLOOD ORDERABLES Final Re sult Performing Organization Address [facility]/ZIP Co de Phone Number [facility] [address] [place] [address] * Vitamin D 25 Hydroxy (04/16/2024 8:47 AM EST) Vitamin D, 25-OH, Total 58.3 30.0 - 80.0 ng/mL [facility] 04/16/2024 8:47 AM EST 04/16/2024 9:36 AM EST us Ravi Ferrera MD LAB BLOOD ORDERABLES Final Re sult Performing Organization Address [facility] Co de Phone Number [facility] [address] [place] [address] * (ABNORMAL) Uric Acid (04/16/2024 8:47 AM EST) Uric Acid 7.9(H) 3.1 - 7.8 mg/dL [facility] 04/16/2024 8:47 AM EST 04/16/2024 9:36 AM EST us Ravi Ferrera MD LAB BLOOD ORDERABLES Final Re sult Performing Organization Address City/[facility]/ZIP Co de Phone Number [facility] [address] [place] [address] * (ABNORMAL) Phosphorus (04/16/2024 8:47 AM EST) Phosphorus 4.8(H) 2.5 - 4.5 mg/dL [facility] 04/16/2024 8:47 AM EST 04/16/2024 9:36 AM EST us Ravi Ferrera MD LAB BLOOD ORDERABLES Final Re sult Performing Organization Address [facility] Co de Phone Number [facility] [address] [place] [address] * (ABNORMAL) PTH, Intact (04/16/2024 8:47 AM EST) Pathologist [facility] PTH 104.7(H) 18.5 - 88.0 pcg/mL [facility] 04/16/2024 8:47 AM EST 04/16/2024 9:36 AM EST us Ravi Ferrera MD LAB BLOOD ORDERABLES Final Re sult Performing Organization Address [facility] Co de Phone Number [facility] [address] [place] [address] * Magnesium (04/16/2024 8:47 AM EST) Magnesium 2.4 1.9 - 2.6 mg/dL [facility] 04/16/2024 8:47 AM EST 04/16/2024 9:36 AM EST us Ravi Ferrera MD LAB BLOOD ORDERABLES Final Re sult Performing Organization Address [facility] Co de Phone Number [facility] [address] [place] [address] * Hemoglobin A1c (04/16/2024 8:47 AM EST) Hemoglobin A1C 5.4 <6.5 % [facility] ([facility]) [facility] Estimated Average Glucose 108 mg/dL [facility]) [facility] 04/16/2024 8:47 AM EST 04/16/2024 9:35 AM EST us Ravi Ferrera MD LAB BLOOD ORDERABLES Final Re sult [facility] ([facility]) [facility] [address] [place] [address] from Last 3 Months Insurance , [address] [address] [facility] Member Subscriber Plan / Payer (Ef fective 2015-Present) Name:PeterRadhaie Relation to Subscriber:Spouse Name:KRISTEN KELLER Date of :1940 (Home) Address: [address] [place] [address] Payer ID:[id number] (NAIC) Group ID:[id number] Type:Not on file Address: [address] [place] [address] MEDICARE [facility] Member Subscriber Plan / Payer (Ef fective 2015-Present) Name:Kristen Keller Relation to Subscriber:Spouse Name:KRISTEN KELLER Date of :1940 (Home) Address: [address] [place] [address], [address] [address] Payer ID:[id number] (NAIC) Group ID:[id number] Type:Not on file Address: [address] [place] [address] MEDICARE Care Teams Tsa Screener Relationship Specialty Start Date End Date Rahat Riley MD [address] [place], [place] PCP - General 04/05/20
--- OUTSIDE RECORDS SUMMARY | 2024-06-04 10:36 | XMS_ITS | Clinical Summary ---
Author Organization [address] Address [address] [place] [address] Phone Care Team Providers Care Network Internship Name Role Phone Rahat Riley MD Primary Care Provider Medications hydrALAZINE (APRESOLINE) 25 mg tablet Take [...] Type Department Care Team Description 04/01/2024 Telephone [facility] [address] [place] [address] Collins Pollock MD Med Refill (hydralazine) from Last 3 [...] mg/dL LAB CHEMISTRY METHOD 04/16/2024 10:23 AM [facility] Prot/Creat, Ur 1.53(H) <=0.20 mg/mg creat LAB CHEMISTRY METHOD 04/16/2024 10:23 AM EST [facility] Creatinine, Urine 57.0 mg/dL LAB CHEMISTRY METHOD 04/16/2024 10:23 AM [facility] Urine Urine specimen obtained by clean catch procedure / Unknown Non-blood Collection / Unknown 04/16/2024 8:54 AM EST 04/16/2024 9:33 AM EST us Ravi Ferrera MD LAB URINE ORDERABLES Final Result Performing Organization Address [facility]/ZIP Co de Phone Number [facility] [address] [place] [address], [place] [phone] * Thyroid stimulating hormone with reflex to free t4 and free t3 (04/16/2024 8:47 AM EST) [facility] TSH 3.04 0.40 - 4.00 mcIU/mL LAB CHEMISTRY METHOD 04/16/2024 10:30 AM EST [facility] Blood Venous blood specimen / Unknown Venipuncture / Unknown 04/16/2024 8:47 AM EST 04/16/2024 9:36 AM EST us Ravi Ferrera MD LAB BLOOD ORDERABLES Final Result Performing Organization Address [facility] Co de Phone Number [facility] [address] [place] [address], [place] [phone] * Lipid panel with reflex to direct LDL (04/16/2024 8:47 AM EST) [facility] Cholesterol 163 0 - 200 mg/dL LAB CHEMISTRY METHOD 04/16/2024 10:27 AM [facility] Triglycerides 80 0 - 150 mg/dL LAB CHEMISTRY METHOD 04/16/2024 10:27 AM [facility] HDL 91 >=40 mg/dL LAB CHEMISTRY METHOD 04/16/2024 10:27 AM [facility] LDL Calculated 56 0 - 100 mg/dL LAB CHEMISTRY METHOD 04/16/2024 10:27 AM [facility] VLDL Cholesterol Yo 16 mg/dL LAB CHEMISTRY METHOD 04/16/2024 10:27 AM [facility] Non HDL Chol. (LDL+VLDL) 72 <145 mg/dL LAB CHEMISTRY METHOD 04/16/2024 10:27 AM [facility] Chol/HDL Ratio 1.8 0.0 - 4.4 LAB CHEMISTRY METHOD 04/16/2024 10:27 AM [facility] Blood Venous blood specimen / Unknown Venipuncture / Unknown 04/16/2024 8:47 AM EST 04/16/2024 9:36 AM EST us Ravi Ferrera MD LAB BLOOD ORDERABLES Final Result [facility] [address] [place] [address], * (ABNORMAL) CBC auto differential (04/16/2024 8:47 AM EST) WBC 5.5 4.8 - 10.8 K/mcL LAB HEMETOLOGY METHOD 04/16/2024 9:42 AM [facility] RBC 3.50(L) 3.80 - 4.80 M/mcL LAB HEMETOLOGY METHOD 04/16/2024 9:42 AM [facility] Hemoglobin 11.4(L) 11.5 - 16.0 g/dL LAB HEMETOLOGY METHOD 04/16/2024 9:42 AM [facility] Hematocrit 37.1 35.0 - 47.0 % LAB HEMETOLOGY METHOD 04/16/2024 9:42 AM [facility] MCV 105.1(H) 79.0 - 98.0 FL LAB HEMETOLOGY METHOD 04/16/2024 9:42 AM [facility] MCH 32.3(H) 27.0 - 32.0 pcg LAB HEMETOLOGY METHOD 04/16/2024 9:42 AM [facility] MCHC 30.7(L) 32.0 - 37.0 g/dL LAB HEMETOLOGY METHOD 04/16/2024 9:42 AM [facility] RDW 13.2 11.0 - 15.0 % LAB HEMETOLOGY METHOD 04/16/2024 9:42 AM [facility] Platelets 155 130 - 400 K/mcL LAB HEMETOLOGY METHOD 04/16/2024 9:42 AM [facility] MPV 10.6 7.0 - 11.0 FL LAB HEMETOLOGY METHOD 04/16/2024 9:42 AM [facility] NRBC 0.0 <1.0 % LAB HEMETOLOGY METHOD 04/16/2024 9:42 AM [facility] NRBC Absolute 0.00 <0.10 K/mcL LAB HEMETOLOGY METHOD 04/16/2024 9:42 AM [facility] Neutrophils Relative 63.7 % LAB HEMETOLOGY METHOD 04/16/2024 9:42 AM [facility] Lymphocytes Relative 17.9 % LAB HEMETOLOGY METHOD 04/16/2024 9:42 AM [facility] Monocytes Relative 12.9 % LAB HEMETOLOGY METHOD 04/16/2024 9:42 AM [facility] Eosinophils Relative 4.6 % LAB HEMETOLOGY METHOD 04/16/2024 9:42 AM [facility] Basophils Relative 0.7 % LAB HEMETOLOGY METHOD 04/16/2024 9:42 AM [facility] Immature Granulocytes Relative 0.2 % LAB HEMETOLOGY METHOD 04/16/2024 9:42 AM [facility] Neutrophils Absolute 3.50 1.50 - 7.00 K/mcL LAB HEMETOLOGY METHOD 04/16/2024 9:42 AM [facility] Lymphocytes Absolute 0.98(L) 1.00 - 5.00 K/mcL LAB HEMETOLOGY METHOD 04/16/2024 9:42 AM [facility] Monocytes Absolute 0.71 0.20 - 1.00 K/mcL LAB HEMETOLOGY METHOD 04/16/2024 9:42 AM EST [facility] Eosinophils Absolute 0.25 0.00 - 0.50 K/[facility] HEMETOLOGY METHOD 04/16/2024 9:42 AM EST [facility] Basophils Absolute 0.04 0.00 - 0.20 K/[facility] HEMETOLOGY METHOD 04/16/2024 9:42 AM EST [facility] Immature Granulocytes Absolute 0.01 0.00 - 0.03 K/[facility] HEMETOLOGY METHOD 04/16/2024 9:42 AM EST [facility] Blood Venous blood specimen / Unknown Venipuncture / Unknown 04/16/2024 8:47 AM EST 04/16/2024 9:35 AM EST us Ravi Ferrera MD LAB BLOOD ORDERABLES Final Result [facility] [address] [place] [address], [place] [phone] * Vitamin D 25 hydroxy (04/16/2024 8:47 AM EST) [facility] Vit D, 25-Hydroxy 58.3 30.0 - 80.0 ng/mL LAB CHEMISTRY METHOD 04/16/2024 10:30 AM EST [facility] Blood Venous blood specimen / Unknown Venipuncture / Unknown 04/16/2024 8:47 AM EST 04/16/2024 9:36 AM EST us Ravi Ferrera MD LAB BLOOD ORDERABLES Final Result [facility] [address] [place] [address], [place] [phone] * (ABNORMAL) Uric acid (04/16/2024 8:47 AM EST) Uric Acid 7.9(H) 3.1 - 7.8 mg/dL LAB CHEMISTRY METHOD 04/16/2024 10:23 AM EST [facility] Blood Venous blood specimen / Unknown Venipuncture / Unknown 04/16/2024 8:47 AM EST 04/16/2024 9:36 AM EST us Ravi Ferrera MD LAB BLOOD ORDERABLES Final Result Performing Organization Address [facility] de Phone Number [facility] [address] [place] [address], [place] [phone] * (ABNORMAL) Phosphorus (04/16/2024 8:47 AM EST) [facility] Phosphorus 4.8(H) 2.5 - 4.5 mg/dL LAB CHEMISTRY METHOD 04/16/2024 10:23 AM EST [facility] Blood Venous blood specimen / Unknown Venipuncture / Unknown 04/16/2024 8:47 AM EST 04/16/2024 9:36 AM EST us Ravi Ferrera MD LAB BLOOD ORDERABLES Final Result Performing Organization Address [facility] de Phone Number [facility] [address] [place] [address], [place] [phone] * (ABNORMAL) Parathyroid hormone intact (04/16/2024 8:47 AM EST) [facility] PTH 104.7(H) 18.5 - 88.0 pcg/mL LAB CHEMISTRY METHOD 04/16/2024 10:35 AM EST [facility] Blood Venous blood specimen / Unknown Venipuncture / Unknown 04/16/2024 8:47 AM EST 04/16/2024 9:36 AM EST us Ravi Ferrera MD LAB BLOOD ORDERABLES Final Result Performing Organization Address City/[facility]/ZIP Co de Phone Number [facility] [address] [place] [address], [place] [phone] * Magnesium (04/16/2024 8:47 AM EST) [facility] Magnesium 2.4 1.9 - 2.6 mg/dL LAB CHEMISTRY METHOD 04/16/2024 10:23 AM EST [facility] Blood Venous blood specimen / Unknown Venipuncture / Unknown 04/16/2024 8:47 AM EST 04/16/2024 9:36 AM EST us Ravi Ferrera MD LAB BLOOD ORDERABLES Final Result [facility] [address] [place] [address], [place] [phone] * Hemoglobin A1c (04/16/2024 8:47 AM EST) [facility] Hemoglobin A1C 5.4 <6.5 % LAB CHEMISTRY METHOD 04/16/2024 11:41 AM EST [facility] Mean Bld Glu Estim. 108 mg/dL LAB CHEMISTRY METHOD 04/16/2024 11:41 AM EST [facility] Blood Venous blood specimen / Unknown Venipuncture / Unknown 04/16/2024 8:47 AM EST 04/16/2024 9:35 AM EST us Ravi Ferrera MD LAB BLOOD ORDERABLES Final Result [facility] [address] [place] [address], [place] [phone] * (ABNORMAL) Comprehensive metabolic panel (04/16/2024 8:47 AM EST) [facility] Sodium 140 133 - 145 mmol/L LAB CHEMISTRY METHOD 04/16/2024 10:24 AM EST [facility] Potassium 4.6 3.5 - 5.5 mmol/L LAB CHEMISTRY METHOD 04/16/2024 10:24 AM [facility] Chloride 112(H) 96 - 110 mmol/L LAB CHEMISTRY METHOD 04/16/2024 10:24 AM [facility] CO2 25 21 - 32 mmol/L LAB CHEMISTRY METHOD 04/16/2024 10:24 AM [facility] Anion Gap 3 3 - 11 LAB CHEMISTRY METHOD 04/16/2024 10:24 AM [facility] Glucose 89 70 - 100 mg/dL LAB CHEMISTRY METHOD 04/16/2024 10:24 AM [facility] BUN 59(H) 5 - 25 mg/dL LAB CHEMISTRY METHOD 04/16/2024 10:24 AM [facility] Creatinine 1.94(H) 0.50 - 1.10 mg/dL LAB CHEMISTRY METHOD 04/16/2024 10:24 AM [facility] eGFR 25(L) >=60 mL/min/1. 73m2 LAB CHEMISTRY METHOD 04/16/2024 10:24 AM [facility] Comment:Calculation based on the??Chronic Kidney Disease Epidemiology Collaboration (CKD-EPI) equation refit??without adjustment for race. BUN/Creatinine Ratio 30.4 LAB CHEMISTRY METHOD 04/16/2024 10:24 AM [facility] Calcium 9.5 8.5 - 10.5 mg/dL LAB CHEMISTRY METHOD 04/16/2024 10:24 AM [facility] AST (SGOT) 33 10 - 42 unit/L LAB CHEMISTRY METHOD 04/16/2024 10:24 AM [facility] ALT (SGPT) 27 10 - 60 unit/L LAB CHEMISTRY METHOD 04/16/2024 10:24 AM [facility] Alkaline Phosphatase 57 42 - 121 unit/L LAB CHEMISTRY METHOD 04/16/2024 10:24 AM [facility] Total Protein 7.3 6.0 - 8.0 g/dL LAB CHEMISTRY METHOD 04/16/2024 10:24 AM EST [facility] ([facility] Albumin 4.0 3.2 - 5.0 g/dL LAB CHEMISTRY METHOD 04/16/2024 10:24 AM EST [facility] ([facility] Total Bilirubin 0.5 0.0 - 1.4 mg/dL LAB CHEMISTRY METHOD 04/16/2024 10:24 AM EST [facility] ([facility]) [facility] Blood Venous blood specimen / Unknown Venipuncture / Unknown 04/16/2024 8:47 AM EST 04/16/2024 9:36 AM EST us Collins Pollock MD LAB BLOOD ORDERABLES Final Res ult [facility] ([facility]) [facility] [address] [place] [address], [place] [phone] from Last 3 Months Insurance MEDICARE [facility] Member Subscriber Plan / Payer (Ef fective 2024-Present) Name:Kristen Green Relation to Subscriber:Spouse Name:ARIANNACATHERINE Dedrick Date of :1934 Address: [address] [place] [phone] Payer ID:[id number] Group ID:[id number] Type:Not on file Address: [address] [place] [address] Care Teams Network Internship Relationship Specialty Start Date End Date Lainer, Rahat, MD [address] [place] [address] PCP - General Internal Medicine 06/21/20
== END 2024-06-04 09:40 | disposition home or self-care (01) ==
LOC: HO.US 09:39
PROVIDERS: PCP Internal Medicine; Visit Provider Internal Medicine
DX: I73.9 Peripheral vascular disease, unspecified (principal)
CPT/HCPCS: 93926

== ENCOUNTER → 2024-06-04 09:41 | Outpatient (BNV) | payer MEDICARE, BC, SELFPAY | PROVIDERS: PCP Internal Medicine; Visit Provider Radiology Diagnostic Radiology | DX: I73.9 Peripheral vascular disease, unspecified (principal) | CPT/HCPCS: 93926 ==

== ENCOUNTER 2024-06-17 13:25 | Outpatient (AMB) | payer MEDICARE, BC, SELFPAY ==
--- NOTE | 2024-06-17 13:46 | MHC.OFFVIS ---
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 States her primary care Dr ordered an ultrasound for her right foot because it is always cold. No other symptoms. 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 She states this has been going on for awhile. She states her foot gets cold when walking or when sitting for long periods of time. She denies any pain in the foot. She can walk for short distances without pain. 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 Patient denies any previous venous surgery or injections. Patient denies any history of DVT/ PE. Patient denies any history of phlebitis. Trial of compression includes - elevation with some relief They now present for vascular evaluation regarding their varicose veins. [facility] Medical History Chest crackles Post-menopausal Preop exam for internal medicine Pre-op exam Surgical History History of colonoscopy H/O bladder repair surgery Hx laparoscopic cholecystectomy Previous back surgery H/O: hysterectomy Family History Mother No problems noted. Father No problems noted. Son No problems noted. Brother Dementia Heart disease Social History Housing: Condominium Alcohol intake: never Patient Tobacco Use Status: Never used Tobacco e-Cigarette/Vaping Use: Never Used Second Hand Smoke Exposure: No service: No Current occupational status: retired Cognitive needs: No Hearing needs: No Vision needs: Yes Review of Systems Const Reports as per HPI and Denies weakness ENT Reports Normal hearing present and Denies dizziness Card Reports as per HPI, Denies chest pain, Denies chest pain at rest, Denies chest pain with activity, Denies dyspnea and Denies dyspnea on exertion Resp Reports as per HPI, Denies cough, Denies dyspnea and Denies dyspnea on exertion GI Reports as per HPI, Denies abdominal pain, Denies nausea and Denies vomiting Musc Denies numbness Skin/Breast Reports as per HPI, Denies erythema and Denies wounds Neuro Reports Normal hearing present, Denies dizziness, Denies numbness, Denies Sensory deficit (Neuro) and Denies weakness Psych Reports no additional complaints Endo Reports no additional complaints Physical Exam Const General: healthy appearing and no acute distress Orientation/consciousness: patient oriented x3 HEENT Head: Yes normal to inspection Ears: hearing grossly normal bilaterally Mouth: Normal oral and palatal mucosa present Resp Effort & Inspection: normal respiratory effort and able to speak in complete sentences Auscultation: clear to auscultation bilaterally Cardio Jugular venous distension: no JVD Rate: regular rate Rhythm: regular rhythm Heart sounds: S1 normal heart sound present and S2 normal heart sound present Bruits: no abdominal aortic bruits, no carotid bruits, no femoral bruits and no renal bruits Peripheral pulses: Peripheral pulses 2+ throughout GI Inspection: Yes normal to inspection Palpation (GI): No Abdominal aortic bruit present Skin General skin exam: no rashes or lesions noted Wounds: no wounds Hair: normal Neuro General: patient oriented x3 Cranial nerves: Yes Normal hearing present Cognition (Neuro): normal cognition Gait exam (Neuro): Normal gait present Motor exam (neuro): 5/5 motor strength present throughout Sensory Exam: No Sensory deficit (Neuro) Extrem Other: Right foot: palpable DP and PT pulses. Foot warm to the touch. Cap refill <3 seconds. Right second toe: slight bruising noted at the base of the toe. Bilateral lower extremities: trace peripheral edema noted. CEAP: C - 3 E - primary A - superficial P - reflux General: Yes normal to inspection, Yes full ROM, Yes capillary refill normal and Yes normal gait Results Reviewed Results Reviewed: US Arterial Duplex 06/04/24: Moderate inflow disease throughout the right lower extremity and disease right PT artery. Assessment & Plan Assessment & Plan (1) Varicose veins of right lower extremity with inflammation: Code(s): I83.11 - Varicose veins of right lower extremity with inflammation Category: Medical Plan: Miss Peterson is presenting today on a referral from her PCP for ongoing right foot discomfort and coolness. She states this has been going on for awhile now. Her PCP ordered an arterial duplex US which revealed moderate inflow disease and disease in the right PT artery. We will be ordering a US. We discussed the importance of physical activity and elevating her legs. She is unable to get compression socks on. In short, the patient has evidence of venous insufficiency. I have discussed the pathophysiology with the patient. In addition I have provided informational material regarding venous disease to the patient. We have discussed conservative measures including compression, elevation, and exercise. I have taken the liberty of ordering venous insufficiency testing with the patient. They will follow up with me after testing. The patient had an opportunity to ask questions regarding the treatment plan. All questions were answered. Imaging studies, laboratory studies and physical exam results were discussed and reviewed in detail. No major barriers to understanding were identified. The patient expressed understanding and agreement with the above treatment plan. The patient is aware they should contact our office by phone for worsening of the current condition or the appearance of new symptoms. Thank you for allowing me to participate in the vascular care of this patient. If you have any questions or concerns regarding the treatment for the above condition please do not hesitate to contact me. The office telephone contact is [phone]. This note is constructed using voice recognition software. While every effort has been made to ensure accuracy, class c driver errors may have been included. Thank you for allowing me to participate in the care of your patient. Yours sincerely, RONALD Rowe Orders: Orders US venous duplex LE BI 1 Week I83.11 - Varicose veins of right lower extremity with inflammation Coding Level of Care Code New Pt Level 4 (81908) Diagnoses Varicose veins of right lower extremity with inflammation I83.11
--- OUTSIDE RECORDS SUMMARY | 2024-06-17 16:24 | XMS_ITS | Data Portability ---
Author Organization [place] [facility], Allergy Address [address] [place] [address] Assessment Encounter Date Assessment Date Assessment LastModified [...] in 3-4 months for routine cerumen removal. [email or web address] Not available 02/27/2024 13:11:31 06/13/2024 06/13/2024 84-year-old female presents for cerumen removal. Cerumen impaction removed bilaterally. Bilateral TMs are intact. She will follow-up in 3-4 months for routine cerumen removal. [email or web address] Not available 06/13/2024 13:57:29 Plan of Treatment Reminders Order Date Submit Date Provider Last Modified By Organization Details Last Modified Time Details Appointments Establish ed 15 2024 01:30P M JUSTINE BLACKBURN PA-C Not available Not available Not available Lab None recorded. Referral None recorded. Procedures None recorded. Surgeries None recorded. Imaging None recorded. Medication Orders None recorded. Patient TargetsNo targets recorded. Patient InstructionsNo instructions recorded. Reason for Referral None Reported. Results Created Date Observation Date Name Description Value Unit Range Abnormal Flag Note LastModifiedBy Organization Detail LastModifiedTime 11/15/192020 imagi ng/di agnos tic resul t No [...] Address Organization Details Recorded Time Impacted cerumen 83712885 Active 2019 Impacted cerumen; Note: Date Diagnosed : 02/27/2020 10:18 AM (380.4) Not Available [facility] 4 03:00:23 Impacted cerumen in right ear 28686552624 96826 Active 2020 Impacted cerumen, right ear; Note: Date Diagnosed : 08/27/2020 9:50 AM (H61.21) Not Available [facility] 4 03:00:21 Impacted cerumen of bilateral ears 82142758961 71318 Active 2019 Impacted cerumen, bilateral ; Note: Date Diagnosed : 08/28/2019 1:33 PM (H61.23) Not Available [facility] 4 03:00:22 Sensorine ural hearing loss of bilateral ears 855843547 Active 2019 Sensorine ural hearing loss, bilateral ; Note: Date Diagnosed : 08/28/2019 2:00 PM (H90.3) Not Available [facility] 4 03:00:23 Problem Notes None recorded. Procedures Surgical History Date Name Laterality Status Provider Name and Address Organization Details Recorded Time 5 Cerumen removal without microscope bilat completed JUSTINE BLACKBURN PA-C [address] [place] [address], [phone], [facility] - [facility] 06/13/2024 13:57:24 4 Cerumen removal without microscope bilat completed JUSTINE BLACKBURN PA-C [address] [facility], [place], [address], [facility] - [facility] 02/27/2024 13:11:20 4 Cerumen removal without microscope bilat completed JUSTINE BLACKBURN PA-C [address] [facility], [place], [address], [facility] - [facility] 11/12/2023 13:19:35 Imaging Results Imaging Date Name Status LastModified by Organiz ation Details LastModified Time 08/28/2019 imaging/diagno stic result completed Information not available 11/15/2023 02:15:11 09/09/2018 imaging/diagno stic result completed Information not available 11/15/2023 02:15:16 08/28/2019 [email or web address] Information not available 11/15/2023 02:15:46 Procedure Notes None recorded. Medical Equipment None Reported. Allergies Allergen ID Allergen Name Allergen Category Reaction Reaction Severity Criticality Documentation Date Start Date Code Code System Note Provider Name and Address Organization Details Recorded Time 360646 penicilli n V potassium medicatio n other Not available Not available 08/07/2023 5 RxNorm React ion: unkno wn, unspe cifie d;; Not Available [facility] 4 01:11:55 Medications Name Sig Start Date Stop Date Status Note LastModified by Organization Details LastModified Time furosemid e 40 mg tablet active Not Available Not Available Not Available hydralazi ne 10 mg tablet 2019 active Medicati on ID: [id number] D uration Value: 30 Brand Name: hydralaz ine Send Method: E-Prescr ibed Sub s Allowed: subs OK Medic ationGen ericName : hydralaz ine Not Available Not Available Not Available hydralazi ne 25 mg tablet TAKE 1 TABLET BY MOUTH THREE TIMES DAILY active Not Available Not Available No t Available amlodipin e 5 mg tablet TAKE 1 TABLET BY MOUTH TWICE DAILY active Not Available Not Available No t Available spironola ctone 25 mg tablet TAKE 1 TABLET BY MOUTH EVERY DAY active Not Available Not Available No t Available simvastat in 40 mg tablet TAKE 1 TABLET BY MOUTH EVERY DAY active Not Available Not Available No t Available ketorolac 0.5 % eye drops 2019 active Medicati on ID: [id number] D uration Value: 18 Brand Name: ketorola c Send Method: E-Prescr ibed Sub s Allowed: subs OK Medic ationGen ericName : ketorola c Not Available Not Available Not Available isosorbid e mononitra te ER 60 mg tablet,ex tended release 24 hr TAKE 1 TABLET BY MOUTH EVERY DAY active Not Available Not Available No t Available amlodipin e 10 mg tablet 2019 active Medicati on ID: [id number] D uration Value: 90 Brand Name: amlodipi ne Send Method: E-Prescr ibed Sub s Allowed: subs OK Medic ationGen ericName : amlodipi ne Not Available Not Available Not Available dorzolami de 22.3 mg-timolo l 6.8 mg/mL eye drops 2019 active Medicati on ID: [id number] D uration Value: 30 Brand Name: dorzolam darci-shadia lol Send Method: E-Prescr ibed Sub s Allowed: subs OK Medic ationGen ericName : dorzolam darci-shadia lol Not Available Not Available Not Available calcitrio l 0.25 mcg capsule TAKE 1 CAPSULE BY MOUTH DAILY DIRECTED active Not Available Not Available No t Available lactulose 10 gram/15 mL oral solution TAKE 15 ML BY MOUTH TWICE DAILY 06/13 completed Not Available Not Available Not Available diflupred meño 0.05 % eye drops INSTILL 1 DROP IN BOTH EYES 6 TIMES A DAY DIRECTED active Not Available Not Available No t Available Vitals Date Recorded Body height Body mass index (BMI) Body weight Provider Name and Address Organization Details Last Updated DateTime 05/30/2024 149.86 cm 31.5 kg/m2 28000.41 g Dominique Urrutia [place] [facility] 05/30/2024 13:50:14 Date Recorded Body height Body mass index (BMI) Body weight Provider Name and Address Organization Details Last Updated DateTime 06/13/2024 149.86 cm 31.5 kg/m2 07170.41 g Wilda Mujica [place] [facility] 06/13/2024 13:16:32 Date Recorded Body height Body mass index (BMI) Body weight Provider Name and Address Organization Details Last Updated DateTime 11/12/2023 149.86 cm 31.9 kg/m2 37359.59 g Dominique Markhamos [facility] 11/12/2023 13:23:14 Date Recorded Body height Body mass index (BMI) Body weight Provider Name and Address Organization Details Last Updated DateTime 02/27/2024 149.86 cm 31.5 kg/m2 32931.41 g Juan José Espinoza [facility] 02/27/2024 13:12:30 Social History None recorded. Functional Status None recorded. Mental Status None recorded. Family History Nothing Reported. Medical History No medical history recorded. Gynecological HistoryNo gynecological history recorded. Obstetrics History GPAL:G 0 P 0 0 0 0 Past Encounters Encounter ID Performer Location Encounter Start Date Encounter Closed Date Diagnosis/Indication Diagnosis SNOMED-CT Code Diagnosis ICD10 Code Diagnosis Note [id number] CALIXTO ZHOU MD [facility] [address] [address] 11/12/2023 13:12:27 11/12/2023 13:46:27 Impacted cerumen of bilateral ears 5125910300 911227 H61.23 [id number] CATIE SHEFFIELD MD [facility] [address] [address] 02/27/2024 12:59:59 02/27/2024 15:32:35 Impacted cerumen of bilateral ears 5745640036 795417 H61.23 [id number] MELODY HARDY MD [facility] [address] [address] 06/13/2024 13:11:40 06/13/2024 13:40:51 Impacted cerumen of bilateral ears 3349803709 364956 H61.23 Health Concerns Section Related Observation LastModified by Organization Detai ls LastModified Time None Recorded Concern Status LastModified by Organization Details LastModified Time None Recorded Advance Directives Directive None Recorded Payers Encounter Date Sequence Insurance Name Policy Number Policy Chan Covered Member ID Chan Member ID Guarantor Name 11/12/2023 2 [place] Hollis Green [id number] Kristen Green 11/12/2023 1 [place] [facility] Kristen Green [id number] Kristen Green 02/27/2024 2 [place] Hollis Green [id number] Kristen Green 02/27/2024 1 [place] [facility] Kristen Green [id number] Kristen Green 06/13/2024 2 [place] Hollis Green [id number] Kristen Green 06/13/2024 1 [place] [facility] Kristen Green [id number] Kristen Green Notes Date Note Type Note Provider Name and Address Organization Details Recorded Time 11/12/2023 text/html 83 year old female presents for cerumen removal. No concerns today. CALIXTO CAR MD [address] [place] [address], [phone], [place] - [facility] 11/12/2023 17:09:47 02/27/2024 text/html 84 year old female presents for cerumen removal. No concerns today. CATIE SHEFFIELD MD [address] [place] [address], [phone], [facility] - [facility] 02/27/2024 17:40:20 06/13/2024 text/html 84 year old female presents for cerumen removal. No concerns today. MELODY HARDY MD [address] [place] [address], [phone], [facility] - [facility] 06/13/2024 17:25:32 OBGyn Episode No OBEpisode recorded.
--- OUTSIDE RECORDS SUMMARY | 2024-06-17 16:24 | XMS_ITS | Clinical Summary ---
Author Organization [address] Address [address] [place] [address] Phone Care Team Providers Care Senior Patient Account Representative Name Role Phone Rahat Riley MD Primary Care Provider [phone] Medications hydrALAZINE (APRESOLINE) 25 mg tablet Take [...] Type Department Care Team Description 04/01/2024 Telephone [facility] [address] [place] [address] Collins Pollock MD Med Refill [...] mg/dL LAB CHEMISTRY METHOD 04/16/2024 10:23 AM [facility] Prot/Creat, Ur 1.53(H) <=0.20 mg/mg creat LAB CHEMISTRY METHOD 04/16/2024 10:23 AM EST [facility] Creatinine, Urine 57.0 mg/dL LAB CHEMISTRY METHOD 04/16/2024 10:23 AM [facility] Urine Urine specimen obtained by clean catch procedure / Unknown Non-blood Collection / Unknown 04/16/2024 8:54 AM EST 04/16/2024 9:33 AM EST us Ravi Ferrera MD LAB URINE ORDERABLES Final Result Performing Organization Address [facility]/ZIP Co de Phone Number [facility] [address] [place] [address], [place] [phone] * Thyroid stimulating hormone with reflex to free t4 and free t3 (04/16/2024 8:47 AM EST) [facility] TSH 3.04 0.40 - 4.00 mcIU/mL LAB CHEMISTRY METHOD 04/16/2024 10:30 AM EST [facility] Blood Venous blood specimen / Unknown Venipuncture / Unknown 04/16/2024 8:47 AM EST 04/16/2024 9:36 AM EST us Ravi Ferrera MD LAB BLOOD ORDERABLES Final Result Performing Organization Address [facility] Co de Phone Number [facility] [address] [place] [address], [place] [phone] * Lipid panel with reflex to direct LDL (04/16/2024 8:47 AM EST) [facility] Cholesterol 163 0 - 200 mg/dL LAB CHEMISTRY METHOD 04/16/2024 10:27 AM [facility] Triglycerides 80 0 - 150 mg/dL LAB CHEMISTRY METHOD 04/16/2024 10:27 AM [facility] HDL 91 >=40 mg/dL LAB CHEMISTRY METHOD 04/16/2024 10:27 AM [facility] LDL Calculated 56 0 - 100 mg/dL LAB CHEMISTRY METHOD 04/16/2024 10:27 AM [facility] VLDL Cholesterol Yo 16 mg/dL LAB CHEMISTRY METHOD 04/16/2024 10:27 AM [facility] Non HDL Chol. (LDL+VLDL) 72 <145 mg/dL LAB CHEMISTRY METHOD 04/16/2024 10:27 AM [facility] Chol/HDL Ratio 1.8 0.0 - 4.4 LAB CHEMISTRY METHOD 04/16/2024 10:27 AM [facility] Blood Venous blood specimen / Unknown Venipuncture / Unknown 04/16/2024 8:47 AM EST 04/16/2024 9:36 AM EST us Ravi Ferrera MD LAB BLOOD ORDERABLES Final Result [facility] [address] [place] [address], * (ABNORMAL) CBC auto differential (04/16/2024 8:47 AM EST) WBC 5.5 4.8 - 10.8 K/mcL LAB HEMETOLOGY METHOD 04/16/2024 9:42 AM [facility] RBC 3.50(L) 3.80 - 4.80 M/mcL LAB HEMETOLOGY METHOD 04/16/2024 9:42 AM [facility] Hemoglobin 11.4(L) 11.5 - 16.0 g/dL LAB HEMETOLOGY METHOD 04/16/2024 9:42 AM [facility] Hematocrit 37.1 35.0 - 47.0 % LAB HEMETOLOGY METHOD 04/16/2024 9:42 AM [facility] MCV 105.1(H) 79.0 - 98.0 FL LAB HEMETOLOGY METHOD 04/16/2024 9:42 AM [facility] MCH 32.3(H) 27.0 - 32.0 pcg LAB HEMETOLOGY METHOD 04/16/2024 9:42 AM [facility] MCHC 30.7(L) 32.0 - 37.0 g/dL LAB HEMETOLOGY METHOD 04/16/2024 9:42 AM [facility] RDW 13.2 11.0 - 15.0 % LAB HEMETOLOGY METHOD 04/16/2024 9:42 AM [facility] Platelets 155 130 - 400 K/mcL LAB HEMETOLOGY METHOD 04/16/2024 9:42 AM [facility] MPV 10.6 7.0 - 11.0 FL LAB HEMETOLOGY METHOD 04/16/2024 9:42 AM [facility] NRBC 0.0 <1.0 % LAB HEMETOLOGY METHOD 04/16/2024 9:42 AM [facility] NRBC Absolute 0.00 <0.10 K/mcL LAB HEMETOLOGY METHOD 04/16/2024 9:42 AM [facility] Neutrophils Relative 63.7 % LAB HEMETOLOGY METHOD 04/16/2024 9:42 AM [facility] Lymphocytes Relative 17.9 % LAB HEMETOLOGY METHOD 04/16/2024 9:42 AM [facility] Monocytes Relative 12.9 % LAB HEMETOLOGY METHOD 04/16/2024 9:42 AM [facility] Eosinophils Relative 4.6 % LAB HEMETOLOGY METHOD 04/16/2024 9:42 AM [facility] Basophils Relative 0.7 % LAB HEMETOLOGY METHOD 04/16/2024 9:42 AM [facility] Immature Granulocytes Relative 0.2 % LAB HEMETOLOGY METHOD 04/16/2024 9:42 AM [facility] Neutrophils Absolute 3.50 1.50 - 7.00 K/mcL LAB HEMETOLOGY METHOD 04/16/2024 9:42 AM [facility] Lymphocytes Absolute 0.98(L) 1.00 - 5.00 K/mcL LAB HEMETOLOGY METHOD 04/16/2024 9:42 AM [facility] Monocytes Absolute 0.71 0.20 - 1.00 K/mcL LAB HEMETOLOGY METHOD 04/16/2024 9:42 AM EST [facility] Eosinophils Absolute 0.25 0.00 - 0.50 K/[facility] LAB HEMETOLOGY METHOD 04/16/2024 9:42 AM EST [facility] Basophils Absolute 0.04 0.00 - 0.20 K/[facility] LAB HEMETOLOGY METHOD 04/16/2024 9:42 AM EST [facility] Immature Granulocytes Absolute 0.01 0.00 - 0.03 K/[facility] LAB HEMETOLOGY METHOD 04/16/2024 9:42 AM EST [facility] Blood Venous blood specimen / Unknown Venipuncture / Unknown 04/16/2024 8:47 AM EST 04/16/2024 9:35 AM EST us Ravi Ferrera MD LAB BLOOD ORDERABLES Final Result [facility] [address] [place] [address], [place] [phone] * Vitamin D 25 hydroxy (04/16/2024 8:47 AM EST) [facility] Vit D, 25-Hydroxy 58.3 30.0 - 80.0 ng/mL LAB CHEMISTRY METHOD 04/16/2024 10:30 AM EST [facility] Blood Venous blood specimen / Unknown Venipuncture / Unknown 04/16/2024 8:47 AM EST 04/16/2024 9:36 AM EST us Ravi Ferrera MD LAB BLOOD ORDERABLES Final Result [facility] [address] [place] [address], [place] [phone] * (ABNORMAL) Uric acid (04/16/2024 8:47 AM EST) Uric Acid 7.9(H) 3.1 - 7.8 mg/dL LAB CHEMISTRY METHOD 04/16/2024 10:23 AM EST [facility] Blood Venous blood specimen / Unknown Venipuncture / Unknown 04/16/2024 8:47 AM EST 04/16/2024 9:36 AM EST us Ravi Ferrera MD LAB BLOOD ORDERABLES Final Result Performing Organization Address [facility] de Phone Number [facility] [address] [place] [address], [place] [phone] * (ABNORMAL) Phosphorus (04/16/2024 8:47 AM EST) [facility] Phosphorus 4.8(H) 2.5 - 4.5 mg/dL LAB CHEMISTRY METHOD 04/16/2024 10:23 AM EST [facility] Blood Venous blood specimen / Unknown Venipuncture / Unknown 04/16/2024 8:47 AM EST 04/16/2024 9:36 AM EST us Ravi Ferrera MD LAB BLOOD ORDERABLES Final Result Performing Organization Address [facility] de Phone Number [facility] [address] [place] [address], [place] [phone] * (ABNORMAL) Parathyroid hormone intact (04/16/2024 8:47 AM EST) [facility] PTH 104.7(H) 18.5 - 88.0 pcg/mL LAB CHEMISTRY METHOD 04/16/2024 10:35 AM EST [facility] Blood Venous blood specimen / Unknown Venipuncture / Unknown 04/16/2024 8:47 AM EST 04/16/2024 9:36 AM EST us Ravi Ferrera MD LAB BLOOD ORDERABLES Final Result Performing Organization Address City/[facility]/ZIP Co de Phone Number [facility] [address] [place] [address], [place] [phone] * Magnesium (04/16/2024 8:47 AM EST) [facility] Magnesium 2.4 1.9 - 2.6 mg/dL LAB CHEMISTRY METHOD 04/16/2024 10:23 AM EST [facility] Blood Venous blood specimen / Unknown Venipuncture / Unknown 04/16/2024 8:47 AM EST 04/16/2024 9:36 AM EST us Ravi Ferrera MD LAB BLOOD ORDERABLES Final Result [facility] [address] [place] [address], [place] [phone] * Hemoglobin A1c (04/16/2024 8:47 AM EST) [facility] Hemoglobin A1C 5.4 <6.5 % LAB CHEMISTRY METHOD 04/16/2024 11:41 AM EST [facility] Mean Bld Glu Estim. 108 mg/dL LAB CHEMISTRY METHOD 04/16/2024 11:41 AM EST [facility] Blood Venous blood specimen / Unknown Venipuncture / Unknown 04/16/2024 8:47 AM EST 04/16/2024 9:35 AM EST us Ravi Ferrera MD LAB BLOOD ORDERABLES Final Result [facility] [address] [place] [address], [place] [phone] * (ABNORMAL) Comprehensive metabolic panel (04/16/2024 8:47 AM EST) [facility] Sodium 140 133 - 145 mmol/L LAB CHEMISTRY METHOD 04/16/2024 10:24 AM EST [facility] Potassium 4.6 3.5 - 5.5 mmol/L LAB CHEMISTRY METHOD 04/16/2024 10:24 AM [facility] Chloride 112(H) 96 - 110 mmol/L LAB CHEMISTRY METHOD 04/16/2024 10:24 AM [facility] CO2 25 21 - 32 mmol/L LAB CHEMISTRY METHOD 04/16/2024 10:24 AM [facility] Anion Gap 3 3 - 11 LAB CHEMISTRY METHOD 04/16/2024 10:24 AM [facility] Glucose 89 70 - 100 mg/dL LAB CHEMISTRY METHOD 04/16/2024 10:24 AM [facility] BUN 59(H) 5 - 25 mg/dL LAB CHEMISTRY METHOD 04/16/2024 10:24 AM [facility] Creatinine 1.94(H) 0.50 - 1.10 mg/dL LAB CHEMISTRY METHOD 04/16/2024 10:24 AM [facility] eGFR 25(L) >=60 mL/min/1. 73m2 LAB CHEMISTRY METHOD 04/16/2024 10:24 AM [facility] Comment:Calculation based on the??Chronic Kidney Disease Epidemiology Collaboration (CKD-EPI) equation refit??without adjustment for race. BUN/Creatinine Ratio 30.4 LAB CHEMISTRY METHOD 04/16/2024 10:24 AM [facility] Calcium 9.5 8.5 - 10.5 mg/dL LAB CHEMISTRY METHOD 04/16/2024 10:24 AM [facility] AST (SGOT) 33 10 - 42 unit/L LAB CHEMISTRY METHOD 04/16/2024 10:24 AM [facility] ALT (SGPT) 27 10 - 60 unit/L LAB CHEMISTRY METHOD 04/16/2024 10:24 AM [facility] Alkaline Phosphatase 57 42 - 121 unit/L LAB CHEMISTRY METHOD 04/16/2024 10:24 AM [facility] Total Protein 7.3 6.0 - 8.0 g/dL LAB CHEMISTRY METHOD 04/16/2024 10:24 AM EST [facility] Albumin 4.0 3.2 - 5.0 g/dL LAB CHEMISTRY METHOD 04/16/2024 10:24 AM EST [facility] Total Bilirubin 0.5 0.0 - 1.4 mg/dL LAB CHEMISTRY METHOD 04/16/2024 10:24 AM EST [facility] Blood Venous blood specimen / Unknown Venipuncture / Unknown 04/16/2024 8:47 AM EST 04/16/2024 9:36 AM EST us Collins Pollock MD LAB BLOOD ORDERABLES Final Res ult [facility] ([facility]) [facility] [address] [place] [address], [place] [phone] from Last 3 Months Insurance MEDICARE [facility] Member Subscriber Plan / Payer (Ef fective 2024-Present) Name:Kristen Green Relation to Subscriber:Spouse Name:ARIANNACATHERINE Dedrick Date of :1934 Address: [address] [place] [id number] Payer ID:[id number] Group ID:[id number] Type:Not on file Address: [address] [place] [address] Care Teams Senior Patient Account Representative Relationship Specialty Start Date End Date Lainer, Rahat, MD [address] [place] [address] PCP - General Internal Medicine 06/21/20
--- OUTSIDE RECORDS SUMMARY | 2024-06-17 16:24 | XMS_ITS | Continuity of Care Document ---
Author Organization [place] - [facility], [facility] Address [address] [place] [address] Assessment Encounter Date Assessment Date Assessment LastModified by Organization Details LastModified Time 06/13/2024 06/13/2024 84-year-old female presents for cerumen removal. Cerumen impaction removed bilaterally. Bilateral TMs are intact. She will follow-up in 3-4 months for routine cerumen removal. toan Not available 06/13/2024 13:57:29 Plan of Treatment [...] instructions recorded. Reason for Referral None Reported. Problems Name Problem SNOMED Code Status Onset Date Resolution Date Notes Provider Name and Address Organization Details Recorded Time Impacted cerumen 38490384 Active 2019 Impacted cerumen; Note: Date Diagnosed : 02/27/2020 10:18 AM (380.4) Not Available [facility] 03:00:23 Impacted cerumen in right ear 72643469201 51229 Active 2020 Impacted cerumen, right ear; Note: Date Diagnosed : 08/27/2020 9:50 AM (H61.21) Not Available [facility] 4 03:00:21 Impacted cerumen of bilateral ears 25458097532 63958 Active 2019 Impacted cerumen, bilateral ; Note: Date Diagnosed : 08/28/2019 1:33 PM (H61.23) Not Available [facility] 4 03:00:22 Sensorine ural hearing loss of bilateral ears 904586703 Active 2019 Sensorine ural hearing loss, bilateral ; Note: Date Diagnosed : 08/28/2019 2:00 PM (H90.3) Not Available [facility] 4 03:00:23 Problem Notes None recorded. Procedures Surgical History Date Name Laterality Status Provider Name and Address Organization Details Recorded Time 5 Cerumen removal without microscope bilat completed JUSTINE BLACKBURN PA-C [address] [place] [address],[address], [address], [facility] 06/13/2024 13:57:24 4 Cerumen removal without microscope bilat completed JUSTINE BLACKBURN PA-C [address] [place] [address],[address], [address], [facility] 02/27/2024 13:11:20 4 Cerumen removal without microscope bilat completed JUSTINE BLACKBURN PA-C [address] [place] [address],[address], [address], [facility] 11/12/2023 13:19:35 Imaging Results None recorded. Procedure Notes None recorded. Medical Equipment None Reported. Allergies Allergen ID Allergen Name Allergen Category Reaction Reaction Severity Criticality Documentation Date Start Date Code Code System Note Provider Name and Address Organization Details Recorded Time 865060 penicilli n V potassium medicatio n other Not available Not available 08/07/2023 5 RxNorm React ion: unkno wn, unspe cifie d;; Not Available [facility] 4 01:11:55 Medications Name Sig Start Date Stop Date Status Note LastModified by Organization Details LastModified Time furosemid e 40 mg tablet active Not Available Not Available Not Available hydralazi ne 10 mg tablet 2019 active Medicati on ID: [id number] D uration Value: 30 Brand Name: hydralaz [...] eye drops 2019 active Medicati on ID: [id number] D uration Value: 18 Brand Name: ketorola [...] mg tablet 2019 active Medicati on ID: [id number] D uration Value: 90 Brand Name: amlodipi ne Send Method: E-Prescr ibed Sub s Allowed: subs OK Medic ationGen ericName : amlodipi ne Not Available Not Available Not Available dorzolami de 22.3 mg-timolo l 6.8 mg/mL eye drops 2019 active Medicati on ID: [id number] D uration Value: 30 Brand Name: dorzolam [...] Updated DateTime 06/13/2024 149.86 cm 31.5 kg/m2 98610.41 g Wilda Mujica [place] - [facility] 06/13/2024 13:16:32 Social History None recorded. Functional Status None recorded. Mental Status None recorded. Family History Nothing Reported. Medical History No medical history recorded. Gynecological HistoryNo gynecological history recorded. Obstetrics History GPAL:G 0 P 0 0 0 0 Past Encounters Encounter ID Performer Location Encounter Start Date Encounter Closed Date Diagnosis/Indication Diagnosis SNOMED-CT Code Diagnosis ICD10 Code Diagnosis Note [id number] MELODY HARDY MD [facility] [address] [phone] 06/13/2024 13:11:40 06/13/2024 13:40:51 Impacted cerumen of bilateral ears 8811003843 623318 H61.23 Health Concerns Section Related Observation LastModified by Organization Detai ls LastModified Time None Recorded Concern Status LastModified by Organization Details LastModified Time None Recorded Payers Encounter Date Sequence Insurance Name Policy Number Policy Chan Covered Member ID Chan Member ID Guarantor Name 06/13/2024 2 [place] [employer] [place] Hollis Green [id number] Kristen Green 06/13/2024 1 [place]: [employer] SERVICES Kristen Green [id number] Kristen Green Notes Date Note Type Note Provider Name and Address Organization Details Recorded Time 06/13/2024 text/html 84 year old female presents for cerumen removal. No concerns today. MELODY HARDY MD [address] [place] [address], [phone], [place] - [facility] 06/13/2024 17:25:32 OBGyn Episode No OBEpisode recorded.
== END 2024-06-17 14:14 | disposition home or self-care (01) ==
LOC: HO.HVS 13:26
PROVIDERS: PCP Internal Medicine; Visit Provider Physician Assistant Surgical
DX: I83.11 Varicose veins of right lower extremity with inflammation (principal)
CPT/HCPCS: 99204

== ENCOUNTER → 2024-06-17 13:25 | Outpatient (BNVA) | payer MEDICARE, BC, SELFPAY | PROVIDERS: PCP Internal Medicine; Visit Provider Physician Assistant Surgical | DX: I83.11 Varicose veins of right lower extremity with inflammation (principal) | CPT/HCPCS: 99202 ==

== ENCOUNTER 2024-07-10 12:46 | Outpatient (REF) | payer MEDICARE, BC, SELFPAY ==
--- NOTE | ~2024-07-10 | US_ITS ---
EXAMINATION: US LOWER EXTREMITY VENOUS (REFLUX EXAM), BILATERAL CLINICAL INFORMATION: Varices COMPARISON: None. TECHNIQUE: Color flow triplex imaging and compression Doppler was performed to evaluate both the deep and the superficial systems bilaterally. To evaluate the superficial system, the examination was performed in the upright position. Color-flow Doppler ultrasound and compression ultrasound were utilized. In addition, maneuvers were utilized to demonstrate reflux. FINDINGS: 1. DEEP VENOUS ULTRASOUND OF THE RIGHT LOWER EXTREMITY: Common Femoral Vein: Compressible, normal respiratory variation and augmented flow. Femoral Vein: Compressible, normal color flow and augmentation. Popliteal Vein: Compressible, normal augmentation. Deep Reflux: There is no evidence of reflux in the deep system in either the common femoral vein, superficial femoral or the popliteal vein. There is no evidence of a Velarde's cyst. 2. SUPERFICIAL ULTRASOUND WITH DOPPLER OF RIGHT LOWER EXTREMITY: GREAT SAPHENOUS VEIN: Saphenofemoral Junction: 0.6 cm; Reflux: 0 ms Proximal Thigh: 0.3 cm; Reflux: 0 ms Mid Thigh: 0.1 cm; Reflux: 0 ms Distal Thigh: 0.1 cm; Reflux: 0 ms At Knee: 0.2 cm; Reflux: 0 ms Proximal Calf: 0.1 cm; Reflux: 2620 ms Mid Calf: 0.1 cm; Reflux: 0 ms Distal Calf: 0.1 cm; Reflux: 0 ms DUPLICATED MEDIAL GREAT SAPHENOUS VEIN: Diameter: None imaged Reflux: NA DUPLICATED LATERAL GREAT SAPHENOUS VEIN: Diameter: 0.3 cm. Reflux: NA SMALL SAPHENOUS VEIN: Saphenopopliteal Junction: 0.4 cm; Reflux: 0 ms Proximal: 0.1 cm; Reflux: 0 ms Distal: 0.1 cm; Reflux: 0 ms VEIN OF GIACOMINI: Size: 0.2 cm. Reflux: NA PERFORATORS: Location: Distal thigh. Size: 0.2 cm. Reflux: NA VARICOSITIES: Location: None imaged. Size: NA Reflux: NA 3. DEEP VENOUS ULTRASOUND OF THE LEFT LOWER EXTREMITY: Common Femoral Vein: Compressible, normal respiratory variation and augmented flow. Femoral Vein: Compressible, normal color flow and augmentation. Popliteal Vein: Compressible, normal augmentation. Deep Reflux: There is no evidence of reflux in the deep system in either the common femoral vein, superficial femoral or the popliteal vein. There is no evidence of a Velarde's cyst. 4. SUPERFICIAL ULTRASOUND WITH DOPPLER OF LEFT LOWER EXTREMITY: GREAT SAPHENOUS VEIN: Saphenofemoral Junction: 0.8 cm; Reflux: 0 ms Proximal Thigh: 0.1 cm; Reflux: 0 ms Mid Thigh: 0.2 cm; Reflux: 0 ms Distal Thigh: 0.2 cm; Reflux: 0 ms At Knee: 0.2 cm; Reflux: 0 ms Proximal Calf: 0.2 cm; Reflux: 0 ms Mid Calf: 0.1 cm; Reflux: 0 ms Distal Calf: 0.2 cm; Reflux: 556 ms DUPLICATED MEDIAL GREAT SAPHENOUS VEIN: Diameter: None imaged Reflux: NA DUPLICATED LATERAL GREAT SAPHENOUS VEIN: Diameter: 0.2 cm. Reflux: NA SMALL SAPHENOUS VEIN: Saphenopopliteal Junction: 0.4 cm; Reflux: 0 ms Proximal: 0.2 cm; Reflux: 0 ms Distal: 0.1 cm; Reflux: 0 ms VEIN OF GIACOMINI: Size: 0.2 cm. Reflux: NA PERFORATORS: Location: None imaged Size: NA Reflux: NA VARICOSITIES: Location: None Imaged Size: NA Reflux: NA US/US venous duplex LE BI IMPRESSION: Right: Venous insufficiency, great saphenous vein below the knee. Perforators distal thigh without reflux. Left: Venous insufficiency, great saphenous vein at the ankle. Electronically signed by: Ritesh May MD 07/11/2024 08:59 AM EDT
--- OUTSIDE RECORDS SUMMARY | 2024-07-10 15:29 | XMS_ITS | Encounter Summary ---
Author Organization [facility] Address [address] [facility] [address] [place] [address] Phone Care Team Providers Care Rfid Manager Name Role Phone Rahat Riley MD Primary Care Provider [phone] Reason for Visit * Reason Onset Date Comments Med Refill 01/17/2021 Encounter Details Date Type Department Care Team (Late st Contact Info) Description 01/17/2021 Refill [facility] [address] [place] [id number] Rocio Barajas Social History Tobacco Use Types [...] Care Team (Late st Contact Info) Description 08/06/2024 9:00 AM EDT Office Visit [facility] [address] [facility] [address] [place] [phone] Ravi Ferrera MD [address] [facility] [address] [place] [phone] documented as of this encounter Visit Diagnoses Not on filedocumented in this encounter Care Teams Rfid Manager Relationship Specialty Start Date End Date Rahat Riley MD [address] [place], [place] PCP - General 04/05/20 documented as of this encounter
--- OUTSIDE RECORDS SUMMARY | 2024-07-10 15:30 | XMS_ITS | Clinical Summary ---
Author Organization [facility] Address [address] [facility] [address] [place] [address] Phone Care Team Providers Care Admissions Manager Name Role Phone Rahat Riley MD Primary Care Provider [phone] Allergies Active Allergy Reactions Criticality Noted Date [...] Encounters Date Type Department Care Team Description 06/04/2024 Documentation Only [facility] [address] [phone] Ravi Ferrera MD No Show (No show/) 04/22/2024 Documentation Only [facility] [address] [phone] Ravi Ferrera MD No Show (No show/) 04/16/2024 Orders Only [facility] [address] [place] [phone] Ravi Ferrera MD from Last 3 Months Immunizations Immunization Administration Dates Next Due Influenza Split High [...] Office Visit [facility] [address] [place] [phone] Ravi Ferrera MD [address] [phone] Health Maintenance Due Date Last Done Comments Influenza Vaccine (Season Ended) 2024 11/09/2017, 11/17/2013, 12/24/2012 Pneumococcal Vaccine: 50+ Years Completed 11/02/2014, 12/04/2011 Pneumococcal Vaccine: Peds (0 to 5 Years) and At-Risk Patients (6 to 49 Years) Discontinued 11/02/2014, 12/04/2011 Hepatitis B Vaccine Aged Out [...] 8:54 AM EST) Protein, Ur 87 mg/dL [facility] ([facility]) [facility] Urine Protein/Creati nine Ratio 1.53(H) <=0.20 mg/mg creat [facility] Creatinine, Urine 57.0 mg/dL [facility] 04/16/2024 8:54 AM EST 04/16/2024 9:33 AM EST Ravi Ferrera MD LAB URINE ORDERABLES Final Re sult [facility] [address] [place] [address] * TSH+T3+Free T4+T3 Free (04/16/2024 8:47 AM EST) TSH 3.04 0.40 - 4.00 mcIU/mL [facility] 04/16/2024 8:47 AM EST 04/16/2024 9:36 AM EST us Ravi Ferrera MD LAB [id number] SOLICITED RESULTS Final Result Performing Organization Address City/[facility]/ZIP Co de Phone Number [facility] [address] [place] [address] * Lipid Panel w/Rfl Direct LDL (04/16/2024 8:47 AM EST) Cholesterol 163 0 - 200 mg/dL [facility] Triglycerides 80 0 - 150 mg/dL [facility] HDL 91 >=40 mg/dL [facility] LDL Calculated 56 0 - 100 mg/dL [facility] VLDL Cholesterol Yo 16 mg/dL [facility] Total Btg-YPO-Wfkl (LDL+VLDL) 72 <145 mg/dL [facility] Chol/HDL Ratio 1.8 0.0 - 4.4 [facility] 04/16/2024 8:47 AM EST 04/16/2024 9:36 AM EST us Ravi Ferrera MD LAB BLOOD ORDERABLES Final Re sult [facility] [address] [place] [address] * (ABNORMAL) CBC auto differential (04/16/2024 8:47 AM EST) WBC 5.5 4.8 - 10.8 K/[facility] RBC 3.50(L) 3.80 - 4.80 M/[facility] Hgb 11.4(L) 11.5 - 16.0 g/dL [facility] Hematocrit 37.1 35.0 - 47.0 % [facility] MCV 105.1(H) 79.0 - 98.0 FL [facility] MCH 32.3(H) 27.0 - 32.0 pcg [facility] MCHC 30.7(L) 32.0 - 37.0 g/dL [facility] RDW 13.2 11.0 - 15.0 % [facility] Platelets 155 130 - 400 K/[facility] MPV 10.6 7.0 - 11.0 [facility] nRBC Count 0.0 <1.0 % [facility] NRBC Absolute 0.00 <0.10 [facility] Bands Relative 63.7 % [facility] Lymphocyte Realative Percent 17.9 % [facility] Monocyte Relative Percent 12.9 % [facility] Eosinophil Relative Percent 4.6 % [facility] Basophils Relative Diff 0.7 % [facility] Immature Granulocytes 0.2 % [facility] Neutrophils Absolute 3.50 1.50 - 7.00 [facility] Lymphocytes Absolute 0.98(L) 1.00 - 5.00 [facility] Monocytes Absolute 0.71 0.20 - 1.00 [facility] Eosinophil Absolute 0.25 0.00 - 0.50 [facility] Basophil ABS 0.04 0.00 - 0.20 [facility] Immature Grans (Absolute) 0.01 0.00 - 0.03 [facility] 04/16/2024 8:47 AM EST 04/16/2024 9:35 AM EST Ravi Ferrera MD LAB BLOOD ORDERABLES Final Re sult Performing Organization Address [facility]/ZIP Co de Phone Number [facility] [address] [place] [address] * Vitamin D 25 Hydroxy (04/16/2024 8:47 AM EST) Vitamin D, 25-OH, Total 58.3 30.0 - 80.0 ng/mL [facility] 04/16/2024 8:47 AM EST 04/16/2024 9:36 AM EST Ravi Ferrera MD LAB BLOOD ORDERABLES Final Re sult Performing Organization Address City/[facility]/ZIP Co de Phone Number [facility] [address] [place] [address] * (ABNORMAL) Uric Acid (04/16/2024 8:47 AM EST) Uric Acid 7.9(H) 3.1 - 7.8 mg/dL [facility] 04/16/2024 8:47 AM EST 04/16/2024 9:36 AM EST us Ravi Ferrera MD LAB BLOOD ORDERABLES Final Re sult Performing Organization Address [facility] de Phone Number [facility] [address] [place] [address] * (ABNORMAL) Phosphorus (04/16/2024 8:47 AM EST) Phosphorus 4.8(H) 2.5 - 4.5 mg/dL [facility] 04/16/2024 8:47 AM EST 04/16/2024 9:36 AM EST us Ravi Ferrera MD LAB BLOOD ORDERABLES Final Re sult Performing Organization Address [facility] de Phone Number [facility] [address] [place] [address] * (ABNORMAL) PTH, Intact (04/16/2024 8:47 AM EST) PTH 104.7(H) 18.5 - 88.0 pcg/mL [facility] 04/16/2024 8:47 AM EST 04/16/2024 9:36 AM EST us Ravi Ferrera MD LAB BLOOD ORDERABLES Final Re sult Performing Organization Address [facility] [[email or web address]] Co de Phone Number [facility] [address] [place] [address] * Magnesium (04/16/2024 8:47 AM EST) Magnesium 2.4 1.9 - 2.6 mg/dL [facility] 04/16/2024 8:47 AM EST 04/16/2024 9:36 AM EST Ravi Ferrera MD LAB BLOOD ORDERABLES Final Re sult [facility] [address] [place] [address] * Hemoglobin A1c (04/16/2024 8:47 AM EST) Hemoglobin A1C 5.4 <6.5 % [facility] Estimated Average Glucose 108 mg/dL [facility] 04/16/2024 8:47 AM EST 04/16/2024 9:35 AM EST Ravi Ferrera MD LAB BLOOD ORDERABLES Final Re sult Performing Organization Address City/State/[facility] [[email or web address]] Co de Phone Number [facility] [address] [place] [address] from Last 3 Months Insurance [facility] Member Subscriber Plan / Payer (Ef fective 2015-Present) Name:Kristen Keller Relation to Subscriber:Spouse Name:ARIANNAKRISTEN Date of :1940 (Home) Address: [address] [place] [address] Payer ID:[id number] (NAIC) Group ID:[id number] Type:Not on file Address: [facility] [address] [place] [address] Medicare [facility] Member Subscriber Plan / Payer (Ef fective 2015-Present) Name:Kristen Keller Relation to Subscriber:Spouse Name:KRISTEN KELLER Date of :1940 (Home) Address: [address] [place] [address], [address] [address] Payer ID:[id number] (NAIC) Group ID:[id number] Type:Not on file Address: [address] [place] [address] Medicare Care Teams Admissions Manager Relationship Specialty Start Date End Date Rahat Riley MD [address] [place] [address] PCP - General 04/05/20
--- OUTSIDE RECORDS SUMMARY | 2024-07-10 15:30 | XMS_ITS | Clinical Summary ---
Author Organization [address] Address [address] [place] [address] Phone Care Team Providers Care Stewarding Supervisor Name Role Phone Rahat Riley MD Primary Care Provider [phone] Medications hydrALAZINE (APRESOLINE) 25 mg tablet Take [...] of excessive caffeine or chronic NSAID use. Medical History Medical History Date Comments Glaucoma [...] Due Date Last Done Comments RSV Immunization Adult Patients (1 - 1-dose 75+ series) 2013 Depression [...] age to complete this topic Meningococcal B Vaccine Aged Out No l onger eligible based on patient's age to complete [...] mL/min/1.73 square meter and albuminuria creatinine ratio les* ([facility] V24, [facility] V28) Raynaud's syndrome Nephrogenous proteinuria Obstructive sleep apnea [...] mL/min/1.73 square meter and albuminuria creatinine ratio les* (CMS/HCC V24, CMS/HCC V28) Raynaud's syndrome Nephrogenous proteinuria Obstructive sleep apnea [...] mL/min/1.73 square meter and albuminuria creatinine ratio les* (CMS/HCC V24, CMS/HCC V28) Raynaud's syndrome Nephrogenous proteinuria Obstructive sleep apnea (adult) (pediatric) Localized edema 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, 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) Essential hypertension, malignant Hyperpotassemia HEMOGLOBIN A1C Routine 04/16/2024 8:47 AM EST Chronic kidney disease (CKD) stage G3b/A1, moderately decreased glomerular filtration rate (GFR) between 30-44 mL/min/1.73 square meter and albuminuria creatinine ratio les* (CMS/HCC V24, CMS/HCC V28) Raynaud's syndrome Nephrogenous proteinuria Obstructive sleep apnea [...] mL/min/1.73 square meter and albuminuria creatinine ratio les* (CMS/HCC V24, CMS/HCC V28) Raynaud's syndrome Nephrogenous proteinuria Obstructive sleep apnea (adult) (pediatric) Localized edema 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, 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) Essential hypertension, malignant Hyperpotassemia CBC AND DIFFERENTIAL Routine 04/16/2024 8:47 AM EST Chronic kidney disease (CKD) stage G3b/A1, moderately decreased glomerular filtration rate (GFR) between 30-44 mL/min/1.73 square meter and albuminuria creatinine ratio les* (CMS/HCC V24, CMS/HCC V28) Raynaud's syndrome Nephrogenous proteinuria Obstructive sleep apnea (adult) (pediatric) Localized edema 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, 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) Essential hypertension, malignant Hyperpotassemia VITAMIN D 25 HYDROXY Routine 04/16/2024 8:47 AM EST Chronic kidney disease (CKD) stage G3b/A1, moderately decreased glomerular filtration rate (GFR) between 30-44 mL/min/1.73 square meter and albuminuria creatinine ratio les* (CMS/HCC V24, CMS/HCC V28) Raynaud's syndrome Nephrogenous proteinuria Obstructive sleep apnea (adult) (pediatric) Localized edema 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, 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) Essential hypertension, malignant Hyperpotassemia PARATHYROID HORMONE INTACT Routine 04/16/2024 8:47 AM EST Chronic kidney disease (CKD) stage G3b/A1, moderately decreased glomerular filtration rate (GFR) between 30-44 mL/min/1.73 square meter and albuminuria creatinine ratio les* (CMS/HCC V24, CMS/HCC V28) Raynaud's syndrome Nephrogenous proteinuria Obstructive sleep apnea (adult) (pediatric) Localized edema 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, 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) Essential hypertension, malignant Hyperpotassemia PHOSPHORUS Routine 04/16/2024 8:47 AM EST Chronic kidney disease (CKD) stage G3b/A1, moderately decreased glomerular filtration rate (GFR) between 30-44 mL/min/1.73 square meter and albuminuria creatinine ratio les* (CMS/HCC V24, CMS/HCC V28) Raynaud's syndrome Nephrogenous proteinuria Obstructive sleep apnea (adult) (pediatric) Localized edema 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, 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) Essential hypertension, malignant Hyperpotassemia MAGNESIUM Routine 04/16/2024 8:47 AM EST Chronic kidney disease (CKD) stage G3b/A1, moderately decreased glomerular filtration rate (GFR) between 30-44 mL/min/1.73 square meter and albuminuria creatinine ratio les* (CMS/HCC V24, CMS/HCC V28) Raynaud's syndrome Nephrogenous proteinuria Obstructive sleep apnea (adult) (pediatric) Localized edema 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, 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) Essential hypertension, malignant Hyperpotassemia URIC ACID Routine 04/16/2024 8:47 AM EST Chronic kidney disease (CKD) stage G3b/A1, moderately decreased glomerular filtration rate (GFR) between 30-44 mL/min/1.73 square meter and albuminuria creatinine ratio les* (CMS/HCC V24, CMS/HCC V28) Raynaud's syndrome Nephrogenous proteinuria Obstructive sleep apnea (adult) (pediatric) Localized edema 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, 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) Essential hypertension, malignant Hyperpotassemia from Last 3 Months Results * (ABNORMAL) Protein and creatinine with ratio, urine (04/16/2024 8:54 AM EST) Protein, Urine 87 mg/dL LAB CHEMISTRY METHOD 04/16/2024 10:23 AM EST [facility] Prot/Creat, Ur 1.53(H) <=0.20 mg/mg creat LAB CHEMISTRY METHOD 04/16/2024 10:23 AM EST [facility] Creatinine, Urine 57.0 mg/dL LAB CHEMISTRY METHOD 04/16/2024 10:23 AM EST [facility] Urine Urine specimen obtained by clean catch procedure / Unknown Non-blood Collection / Unknown 04/16/2024 8:54 AM EST 04/16/2024 9:33 AM EST us Ravi Ferrera MD LAB URINE ORDERABLES Final Result Performing Organization Address City/[facility]/ZIP Co de Phone Number [facility] [address] [place] [address], [place] [phone] * Thyroid stimulating hormone with reflex to free t4 and free t3 (04/16/2024 8:47 AM EST) Pathologist [facility] TSH 3.04 0.40 - 4.00 mcIU/mL LAB CHEMISTRY METHOD 04/16/2024 10:30 AM [facility] Blood Venous blood specimen / Unknown Venipuncture / Unknown 04/16/2024 8:47 AM EST 04/16/2024 9:36 AM EST us Ravi Ferrera MD LAB BLOOD ORDERABLES Final Result Performing Organization Address [facility]/ZIP Co de Phone Number [facility] [address] [place] [address], [place] [phone] * Lipid panel with reflex to direct LDL (04/16/2024 8:47 AM EST) Pathologist [facility] Cholesterol 163 0 - 200 mg/dL LAB [...] Ferrera MD LAB BLOOD ORDERABLES Final Result [facility] [address] [place] [address], * (ABNORMAL) CBC auto differential (04/16/2024 8:47 [...] LAB Neutrophils Absolute 3.50 1.50 - 7.00 K/[facility] HEMETOLOGY METHOD 04/16/2024 9:42 AM [facility] Lymphocytes Absolute 0.98(L) 1.00 - 5.00 K/mcL LAB HEMETOLOGY METHOD 04/16/2024 9:42 AM [facility] Monocytes Absolute 0.71 0.20 - 1.00 K/[facility]L LAB HEMETOLOGY METHOD 04/16/2024 9:42 AM EST [facility] Eosinophils Absolute 0.25 0.00 - 0.50 K/[facility] HEMETOLOGY METHOD 04/16/2024 9:42 AM EST [facility] Basophils Absolute 0.04 0.00 - 0.20 K/[facility] HEMETOLOGY METHOD 04/16/2024 9:42 AM EST [facility] Immature Granulocytes Absolute 0.01 0.00 - 0.03 K/[facility] HEMETOLOGY METHOD 04/16/2024 9:42 AM EST [facility] Blood Venous blood specimen / Unknown Venipuncture / Unknown 04/16/2024 8:47 AM EST 04/16/2024 9:35 AM EST us Ravi Ferrera MD LAB BLOOD ORDERABLES Final Result Performing Organization Address City/[facility]/ZIP Co de Phone Number [facility] [address] [place] [address], [place] [phone] * Vitamin D 25 hydroxy (04/16/2024 8:47 AM EST) Vit D, 25-Hydroxy 58.3 30.0 - 80.0 ng/mL LAB CHEMISTRY METHOD 04/16/2024 10:30 AM EST [facility] Blood Venous blood specimen / Unknown Venipuncture / Unknown 04/16/2024 8:47 AM EST 04/16/2024 9:36 AM EST us Ravi Ferrera MD LAB BLOOD ORDERABLES Final Result [facility] [address] [place] [address], [place] [phone] * (ABNORMAL) Uric acid (04/16/2024 8:47 AM EST) Uric Acid 7.9(H) 3.1 - 7.8 mg/dL LAB CHEMISTRY METHOD 04/16/2024 10:23 AM EST [facility] Blood Venous blood specimen / Unknown Venipuncture / Unknown 04/16/2024 8:47 AM EST 04/16/2024 9:36 AM EST us Ravi Ferrera MD LAB BLOOD ORDERABLES Final Result Performing Organization Address [facility]/ZIP Co de Phone Number [facility] [address] [place] [address], [place] [phone] * (ABNORMAL) Phosphorus (04/16/2024 8:47 AM EST) Phosphorus 4.8(H) 2.5 - 4.5 mg/dL LAB CHEMISTRY METHOD 04/16/2024 10:23 AM EST [facility] Blood Venous blood specimen / Unknown Venipuncture / Unknown 04/16/2024 8:47 AM EST 04/16/2024 9:36 AM EST us Ravi Ferrera MD LAB BLOOD ORDERABLES Final Result Performing Organization Address [facility]/ZIP Co de Phone Number [facility] [address] [place] [address], [place] [phone] * (ABNORMAL) Parathyroid hormone intact (04/16/2024 8:47 AM EST) PTH 104.7(H) 18.5 - 88.0 pcg/mL LAB CHEMISTRY METHOD 04/16/2024 10:35 AM EST [facility] Blood Venous blood specimen / Unknown Venipuncture / Unknown 04/16/2024 8:47 AM EST 04/16/2024 9:36 AM EST us Ravi Ferrera MD LAB BLOOD ORDERABLES Final Result Performing Organization Address City/[facility]/ZIP Co de Phone Number [facility] [address] [place] [address], [place] [phone] * Magnesium (04/16/2024 8:47 AM EST) Pathologist [facility] Magnesium 2.4 1.9 - 2.6 mg/dL LAB CHEMISTRY METHOD 04/16/2024 10:23 AM EST [facility] Blood Venous blood specimen / Unknown Venipuncture / Unknown 04/16/2024 8:47 AM EST 04/16/2024 9:36 AM EST us Ravi Ferrera MD LAB BLOOD ORDERABLES Final Result Performing Organization Address City/[facility]/ZIP Co de Phone Number [facility] [address] [place] [address], [place] [phone] * Hemoglobin A1c (04/16/2024 8:47 AM EST) [facility] Hemoglobin A1C 5.4 <6.5 % LAB CHEMISTRY METHOD 04/16/2024 11:41 AM EST [facility] Mean Bld Glu Estim. 108 mg/dL LAB CHEMISTRY METHOD 04/16/2024 11:41 AM [facility] Blood Venous blood specimen / Unknown Venipuncture / Unknown 04/16/2024 8:47 AM EST 04/16/2024 9:35 AM EST us Ravi Ferrera MD LAB BLOOD ORDERABLES Final Result Performing Organization Address City/[facility]/ZIP Co de Phone Number [facility] [address] [place] [address], [place] [phone] * (ABNORMAL) Comprehensive metabolic panel (04/16/2024 8:47 AM EST) [facility] Sodium 140 133 - 145 mmol/L LAB CHEMISTRY METHOD 04/16/2024 10:24 AM [facility] Potassium 4.6 3.5 - 5.5 mmol/L LAB CHEMISTRY METHOD 04/16/2024 10:24 AM EST [facility] Chloride 112(H) 96 - 110 [...] g/dL LAB CHEMISTRY METHOD 04/16/2024 10:24 AM [facility] Albumin 4.0 3.2 - 5.0 g/dL LAB CHEMISTRY METHOD 04/16/2024 10:24 AM EST [facility] ([facility] Total Bilirubin 0.5 0.0 - 1.4 mg/dL LAB CHEMISTRY METHOD 04/16/2024 10:24 AM EST [facility] ([facility] Blood Venous blood specimen / Unknown Venipuncture / Unknown 04/16/2024 8:47 AM EST 04/16/2024 9:36 AM EST us Collins Pollock MD LAB BLOOD ORDERABLES Final Res ult [facility] ([facility]) [facility] [address] [place] [address], [place] [phone] from Last 3 Months Insurance MEDICARE [facility] Member Subscriber Plan / Payer (Ef fective 2024-Present) Name:Kristen Green Relation to Subscriber:Spouse Name:CATHERINE GREEN Date of :1934 Address: [address] [address] Payer ID:[id number] Group ID:[id number] Type:Not on file Address: [address] [place] [address] Care Teams Stewarding Supervisor Relationship Specialty Start Date End Date Rahat Riley MD [address] [place] [address] PCP - General Internal Medicine 06/21/20
== END 2024-07-10 12:47 | disposition home or self-care (01) ==
LOC: HO.US 12:46
PROVIDERS: Visit Provider Physician Assistant Surgical
DX: I83.11 Varicose veins of right lower extremity with inflammation (principal)
CPT/HCPCS: 93970

== ENCOUNTER → 2024-07-10 12:48 | Outpatient (BNV) | payer MEDICARE, BC, SELFPAY | PROVIDERS: Visit Provider Radiology Diagnostic Radiology | DX: I83.11 Varicose veins of right lower extremity with inflammation (principal) | CPT/HCPCS: 93970 ==

== ENCOUNTER 2024-07-24 13:28 | Outpatient (AMB) | payer MEDICARE, BC, SELFPAY ==
[2024-07-24 13:33] VITALS: BMI 31.7
--- NOTE | 2024-07-24 13:33 | A.OFFVIS_ITS ---
Vital Signs 07/24/24 13:33 Height 4 ft 11 in Weight 157 lb BMI 31.7 Intake Visit Reasons: follow up s/p [facility] 07/10/24 Intake Note: follow up [facility] 07/10/24 for Right foot coldness Tooth Cutter Pinion Required: No Accompanied by: Self / Same As Patient Allergies penicillin V Allergy (Unknown, Verified 07/24/24 13:37) nausea and vomiting prednisone Adverse Reaction (Intermediate, Verified 07/24/24 13:37) leg Swelling HPI HPI follow up s/p [facility] 07/10/24: Details: Kristen is presenting today for a follow up to [facility], performed on 07/10/24. She continues to endorse a cold right foot, mostly when she is sitting/not doing anything. She states it does not feel cold when she is standing or walking. She has no new concerns today. [facility] Medical History Chest crackles Post-menopausal Preop exam for internal medicine Pre-op exam Surgical History History of colonoscopy H/O bladder repair surgery Hx laparoscopic cholecystectomy Previous back surgery H/O: hysterectomy Family History Mother No problems noted. Father No problems noted. Son No problems noted. Brother Dementia Heart disease Social History Housing: Condominium Alcohol intake: never Patient Tobacco Use Status: Never used Tobacco e-Cigarette/Vaping Use: Never Used Second Hand Smoke Exposure: No service: No Current occupational status: retired Cognitive needs: No Hearing needs: No Vision needs: Yes Review of Systems Const Reports as per HPI and Denies weakness ENT Reports Normal hearing present and Denies dizziness Card Reports as per HPI, Denies chest pain, Denies chest pain at rest, Denies chest pain with activity, Denies dyspnea and Denies dyspnea on exertion Resp Reports as per HPI, Denies cough, Denies dyspnea and Denies dyspnea on exertion GI Reports as per HPI, Denies abdominal pain, Denies nausea and Denies vomiting Musc Denies numbness Skin/Breast Reports as per HPI, Denies erythema and Denies wounds Neuro Reports Normal hearing present, Denies dizziness, Denies numbness, Denies Sensory deficit (Neuro) and Denies weakness Psych Reports no additional complaints Endo Reports no additional complaints Physical Exam Vital Signs: BMI result Body Mass Index 31.7 Const General: healthy appearing and no acute distress Orientation/consciousness: patient oriented x3 HEENT Head: Yes normal to inspection Ears: hearing grossly normal bilaterally Mouth: Normal oral and palatal mucosa present Resp Effort & Inspection: normal respiratory effort and able to speak in complete sentences Auscultation: clear to auscultation bilaterally Cardio Jugular venous distension: no JVD Rate: regular rate Rhythm: regular rhythm Heart sounds: S1 normal heart sound present and S2 normal heart sound present Bruits: no abdominal aortic bruits, no carotid bruits, no femoral bruits and no renal bruits Peripheral pulses: Peripheral pulses 2+ throughout GI Inspection: Yes normal to inspection Palpation (GI): No Abdominal aortic bruit present Skin General skin exam: no rashes or lesions noted Wounds: no wounds Hair: normal Neuro General: patient oriented x3 Cranial nerves: Yes Normal hearing present Cognition (Neuro): normal cognition Gait exam (Neuro): Normal gait present Motor exam (neuro): 5/5 motor strength present throughout Sensory Exam: No Sensory deficit (Neuro) Extrem Other: Right foot: palpable DP and PT pulses. Foot warm to the touch. Cap refill <3 seconds. Right second toe: slight bruising noted at the base of the toe. Bilateral lower extremities: trace peripheral edema noted General: Yes normal to inspection, Yes full ROM, Yes capillary refill normal and Yes normal gait Results Reviewed Results Reviewed: Brief summary of venous insufficiency testing is as follows: right great saphenous vein: negative, except below the knee, with vein 0.14cm and 2620ms right small saphenous vein: negative right accessory vein: none present left great saphenous vein: negative left small saphenous vein: negative left accessory vein: none present Please note there is no evidence of any venous aneurysms or significant tortuosity Assessment & Plan Assessment & Plan (1) Varicose veins of right lower extremity with inflammation: Code(s): I83.11 - Varicose veins of right lower extremity with inflammation Category: Medical Plan: Kristen is presenting today for a follow up to US testing, performed on 07/10/24. The was essentially negative, with the exception of a small part of the right GSV below the knee with reflux of 2620ms. The rest of the test was negative. She continues to endorse a cold foot, mostly when she stops or sits down. She states she does not get any feelings of coolness when walking/active. We discussed that we reviewed both the arterial and venous studies and there does not appear to be any vascular aspect that can be causing this cool feeling. We discussed to have her follow up with her PCP for further evaluation. We discussed that if she had any other vascular concerns in the future, she can reach out to us at any point. Thank you for allowing us to participate in the patient's care. If there are any questions or concerns, please do not hesitate to reach out to us. Coding Level of Care Code Est Pt Level 4 (59374) Diagnoses Varicose veins of right lower extremity with inflammation I83.11 Comment review of US
--- OUTSIDE RECORDS SUMMARY | 2024-07-24 15:50 | XMS_ITS | Clinical Summary ---
Author Organization [address] Address [address] [place] [address] Phone Care Team Providers Care Forensic Accountant Name Role Phone Rahat Riley MD Primary Care Provider [phone] Medications hydrALAZINE (APRESOLINE) 25 mg tablet Take [...] 02/25/2022 Social Influencers of Health Screening 02/25/2022 COVID-19 Vaccine ( season) 2024 11/30/2023, 06/03/2023, 12/14/2022, Additional history exists Hypertension/CHF/CAD Annual BMP Blood Test 04/16/2025 04/16/2024, 08/15/2023 Cholesterol Screening (Lipid Panel) 04/16/2029 04/16/2024 DTaP,Tdap,and Td Vaccines (3 - Td or Tdap) 08/13/2030 08/13/2020, 11/28/2011 MMR Vaccines Aged Out 01/09/2012 No longer eligi ble based on patient's age to complete this topic Zoster Vaccines Completed 06/09/2023, 10/02/2017 Pneumococcal Vaccine: 50+ Years Completed 06/13/2023, 11/18/2015, 11/01/2014, Additional history exists Influenza Vaccine Completed 11/30/2023, [...] Procedure Name Priority Date/Time Associated Diagnosis Comments COMPREHENSIVE METABOLIC PANEL Routine 04/16/2024 8:47 AM EST Hypertension, unspecified type LIPID PANEL WITH REFLEX TO DIRECT LDL [...] hypertension, malignant Hyperpotassemia from Last 3 Months or Most Recently Relevant to Health Maintenance Results * Lipid panel with reflex to direct LDL (04/16/2024 8:47 AM EST) Cholesterol 163 0 - 200 mg/dL LAB CHEMISTRY METHOD 04/16/2024 10:27 AM [facility] Triglycerides 80 0 - 150 mg/dL LAB CHEMISTRY METHOD 04/16/2024 10:27 AM [facility] HDL 91 >=40 mg/dL LAB CHEMISTRY METHOD 04/16/2024 10:27 AM [facility] LDL Calculated 56 0 - 100 mg/dL LAB CHEMISTRY METHOD 04/16/2024 10:27 AM [facility] VLDL Cholesterol Yo 16 mg/dL LAB CHEMISTRY METHOD 04/16/2024 10:27 AM [facility] Non HDL Chol. (LDL+VLDL) 72 <145 mg/dL LAB CHEMISTRY METHOD 04/16/2024 10:27 AM [facility] Chol/HDL Ratio 1.8 0.0 - 4.4 LAB CHEMISTRY METHOD 04/16/2024 10:27 AM [facility] Blood Venous blood specimen / Unknown Venipuncture / Unknown 04/16/2024 8:47 AM EST 04/16/2024 9:36 AM EST us Ravi Ferrera MD LAB BLOOD ORDERABLES Final Result [facility] [address] [place] [address], * (ABNORMAL) Comprehensive metabolic panel (04/16/2024 8:47 AM EST) Pathologist [facility] Sodium 140 133 - 145 mmol/L LAB CHEMISTRY METHOD 04/16/2024 10:24 AM [facility] Potassium 4.6 3.5 - 5.5 mmol/L LAB CHEMISTRY METHOD 04/16/2024 10:24 AM [facility] Chloride 112(H) 96 - 110 mmol/L LAB CHEMISTRY METHOD 04/16/2024 10:24 AM [facility] CO2 25 21 - 32 mmol/L LAB CHEMISTRY METHOD 04/16/2024 10:24 AM [facility] Anion Gap 3 3 - 11 LAB CHEMISTRY METHOD 04/16/2024 10:24 AM [facility] Glucose 89 70 - 100 mg/dL LAB CHEMISTRY METHOD 04/16/2024 10:24 AM [facility] BUN 59(H) 5 - 25 mg/dL LAB CHEMISTRY METHOD 04/16/2024 10:24 AM [facility] Creatinine 1.94(H) 0.50 - 1.10 mg/dL LAB CHEMISTRY METHOD 04/16/2024 10:24 AM [facility] eGFR 25(L) >=60 mL/min/1. 73m2 LAB CHEMISTRY METHOD 04/16/2024 10:24 AM [facility] Comment:Calculation based on the??Chronic Kidney Disease Epidemiology Collaboration (CKD-EPI) equation refit??without adjustment for race. BUN/Creatinine Ratio 30.4 LAB CHEMISTRY METHOD 04/16/2024 10:24 AM [facility] Calcium 9.5 8.5 - 10.5 mg/dL LAB CHEMISTRY METHOD 04/16/2024 10:24 AM [facility] AST (SGOT) 33 10 - 42 unit/L LAB CHEMISTRY METHOD 04/16/2024 10:24 AM [facility] ALT (SGPT) 27 10 - 60 unit/L LAB CHEMISTRY METHOD 04/16/2024 10:24 AM [facility] Alkaline Phosphatase 57 42 - 121 unit/L LAB CHEMISTRY METHOD 04/16/2024 10:24 AM [facility] Total Protein 7.3 6.0 - 8.0 g/dL LAB CHEMISTRY METHOD 04/16/2024 10:24 AM [facility] Albumin 4.0 3.2 - 5.0 g/dL LAB CHEMISTRY METHOD 04/16/2024 10:24 AM EST [facility] Total Bilirubin 0.5 0.0 - 1.4 mg/dL LAB CHEMISTRY METHOD 04/16/2024 10:24 AM EST [facility] ([facility] Blood Venous blood specimen / Unknown Venipuncture / Unknown 04/16/2024 8:47 AM EST 04/16/2024 9:36 AM EST us Collins Pollock MD LAB BLOOD ORDERABLES Final Res ult [facility] [address] [place] [address], from Last 3 Months or Most Recently Relevant to Health Maintenance Insurance MEDICARE [facility] Member Subscriber Plan / Payer (Ef fective 2024-Present) Name:Kristen Green Relation to Subscriber:Spouse Name:CATHERINE GREEN Date of :1934 Address: [address] [address] Payer ID:[id number] Group ID:[id number] Type:Not on file Address: [address] [place] [address] Care Teams Forensic Accountant Relationship Specialty Start Date End Date Rahat Riley MD [address] [place] [id number] PCP - General Internal Medicine 06/21/20
--- OUTSIDE RECORDS SUMMARY | 2024-07-24 15:50 | XMS_ITS | Encounter Summary ---
Author Organization [facility] Address [address] [facility] [address] [place] [address] Phone Care Team Providers Care Greenhouse Worker Name Role Phone Rahat Riley MD Primary Care Provider [phone] Reason for Visit * Reason Onset Date Comments Med Refill 01/17/2021 Encounter Details Date Type Department Care Team (Late st Contact Info) Description 01/17/2021 Refill [facility] [address] [place] [phone] Rocio Barajas Social History Tobacco Use Types [...] Visit [facility] [address] [facility] [address] [place] [phone] Ravi Ferrera MD [address] [facility] [address] [place] [phone] documented as of this encounter Visit Diagnoses Not on filedocumented in this encounter Care Teams Greenhouse Worker Relationship Specialty Start Date End Date Rahat Riley MD [address] [place], [place] PCP - General 04/05/20 documented as of this encounter
--- OUTSIDE RECORDS SUMMARY | 2024-07-24 15:50 | XMS_ITS | Clinical Summary ---
Author Organization [facility] Address [address] [facility] [address] [place] [address] Phone Care Team Providers Care Product Safety Technician Name Role Phone Rahat Riley MD Primary Care Provider [phone] Allergies Active Allergy Reactions Criticality Noted Date [...] [facility] [address] [address] Ravi Ferrera MD No Show (No show/) from Last 3 Months Immunizations Immunization Administration [...] Visit [facility] [address] [address] Ravi Ferrera MD [address] [address] Health Maintenance Due Date Last Done Comments Influenza Vaccine (Season Ended) 2024 11/09/2017, 11/17/2013, 12/24/2012 Pneumococcal Vaccine: 50+ Years Completed 11/02/2014, 12/04/2011 Pneumococcal Vaccine: Peds (0 to 5 Years) and At-Risk Patients (6 to 49 Years) Discontinued 11/02/2014, 12/04/2011 Hepatitis B Vaccine Aged Out No longe r eligible based on patient's age to complete this topic Insurance , [address] [address] [facility] Member Subscriber Plan / Payer (Ef fective 2015-Present) Name:Kristen Keller Relation to Subscriber:Spouse Name:KRISTEN KELLER Date of :1938 (Home) Address: [address] [place] [address] Payer ID:[id number] (NAIC) Group ID:[id number] Type:Not on file Address: [facility] [address] [place] [address] Medicare [facility] Member Subscriber Plan / Payer (Ef fective 2015-Present) Name:Kristen Keller Relation to Subscriber:Spouse Name:KRISTEN KELLER Date of :1940 (Home) Address: [address] [place] [address] Payer ID:[id number] (NAIC) Group ID:[id number] Type:Not on file Address: [facility] [id number] [place] [address] Medicare Care Teams Product Safety Technician Relationship Specialty Start Date End Date Rahat Riley MD [address] [place], [place] PCP - General 04/05/20
== END 2024-07-24 14:22 | disposition home or self-care (01) ==
LOC: HO.HVS 13:29
PROVIDERS: Visit Provider Physician Assistant Surgical
DX: I83.11 Varicose veins of right lower extremity with inflammation (principal)
CPT/HCPCS: 99214

== ENCOUNTER → 2024-07-24 13:28 | Outpatient (BNVA) | payer MEDICARE, BC, SELFPAY | PROVIDERS: Visit Provider Physician Assistant Surgical | DX: I83.11 Varicose veins of right lower extremity with inflammation (principal) | CPT/HCPCS: 99212 ==

== ENCOUNTER 2024-09-24 09:50 | Outpatient (AMB) | payer MEDICARE, BC, SELFPAY ==
--- NOTE | 2024-09-24 09:56 | A.OFFPC_ITS ---
Vital Signs 09/24/24 09:57 Height 4 ft 11 in Weight 156 lb 8 oz BMI 31.6 BP 170/60 H Blood Pressure Location Lt brachial Position Sitting Pulse 63 Pulse Source Pulse Oximeter Temp 97.3 F Temp Source Temporal Artery Scan Pulse Oximetry (%) 95 Oxygen Delivery Method Room Air Intake Visit Reasons: transfer Dr Riley 6 month f/u Intake Note: Patient is here today for JUANA from Dr Riley Medical Cost Consultant Required: No Curriculum Assistant: Not Required per policy Accompanied by: Self / Same As Patient Allergies penicillin V Allergy (Unknown, Verified 09/24/24 10:11) nausea and vomiting prednisone Adverse Reaction (Intermediate, Verified 09/24/24 10:11) leg Swelling Medication List - Last Reconciled 09/24/24 by Kiara Dobbins PA-C acetaminophen 500 mg PO Q6H PRN amlodipine 5 mg PO BID aspirin 81 mg PO DAILY calcitriol 0.25 mcg PO Q OTHER DAY cholecalciferol (vitamin D3) 50 mcg PO DAILY CPAP (CPAP Machine/Device) As directed difluprednate 0.05% 1 drp ophthalmic (eye) QID furosemide 40 mg PO DAILY hydralazine 25 mg PO TID isosorbide mononitrate ER 60 mg PO DAILY lactulose 15 mL PO BID multivitamin 1 tab PO DAILY simvastatin 40 mg PO DAILY spironolactone 25 mg PO DAILY Tobacco use date assessed: 09/24/24 Fall risk assessment: No Falls in past year Last assessed Fall Risk: 09/24/24 Dental Screening Dental Screen Date: 04/18/[address] Riley 6 month f/u HPI Details 84-year-old female with past medical his tory of GERD, hyperlipidemia, hypertension, obstructive sleep apnea on CPAP, chronic kidney disease, peripheral vascular disease last seen by Dr. Riley 03/2024 coming in for transfer of care. In review of the notes, patient was seen by vascular surgery 07/24/2024 arterial and venous studies did not show any vascular aspect to this cold feeling in her foot and advised to follow up as needed going forward. Presenting with insomnia and hypertension. The patient experiences difficulty maintaining sleep, often waking due to hunger and unable to return to sleep. She has not previously used sleep aids. The patient reports elevated blood pressure in clinical settings but normal readings at home. She follows a low-salt diet due to her 's stroke history. The patient is monitored by a scraper loader operator for low pulse rate, with no recent medication changes. She denies dizziness or lightheadedness. The patient uses a CPAP machine four-five times weekly as advised by her angle furnaceman. She intends to schedule a follow-up appointment. She has previously following with vascular surgery for coldness in the right foot which has resolved at this time. Aircraft Systems Repairer - Dr. Dhaliwal through [facility] through [facility] for CPAP Commercial Construction Superintendent - blood work through [facility] Medical History Chest crackles Post-menopausal Preop exam for internal medicine Pre-op exam Surgical History History of colonoscopy H/O bladder repair surgery Hx laparoscopic cholecystectomy Previous back surgery H/O: hysterectomy Family History Mother No problems noted. Father No problems noted. Son No problems noted. Brother Dementia Heart disease Social History Housing: Condominium Alcohol intake: never Patient Tobacco Use Status: Never used Tobacco e-Cigarette/Vaping Use: Never Used Second Hand Smoke Exposure: No service: No Current occupational status: retired Cognitive needs: No Hearing needs: No Vision needs: Yes Questionnaire PHQ-9 Over the last 2 weeks, how often have you been bothered by any of the following problems? 1. Little interest or pleasure in doing things: not at all 2. Feeling down, depressed, or hopeless: not at all 3. Trouble falling or staying asleep, or sleeping too much: nearly every day 4. Feeling tired or having little energy: not at all 5. Poor appetite or overeating: not at all 6. Feeling bad about yourself - or that you are a failure or have let yourself or your family down: not at all 7. Trouble concentrating on things, such as reading the newspaper or watching television: not at all 8. Moving or speaking so slowly that other people could have noticed. Or the opposite - being so fidgety or restless that you have been moving around a lot more than usual: not at all 9. Thoughts that you would be better off or of hurting yourself in some way: not at all Total score: 3 Depression Screening Interpretation: Negative Depression Screening Done: Yes Source: Developed by Drs. Hollis Valdez, Nanda Garces, Rob Brown and colleagues, with an educational rosina from [employer]. Thrive Questionnaire Date Thrive assessed: 09/19/24 I am a: Patient What is your living situation today?: I have a steady place to live Within the past 12 months, did the food you bought not last and you didn't have the money to get more?: Never true Within the past 12 months, did you worry whether your food would run out before you got money to buy more?: Never true Do you have trouble paying for medicines?: No Do you have trouble getting transportation to medical appointments?: No Do you have trouble paying your heating and electricity bill?: No Do you have trouble taking care of your child, family member or friend?: No Do you have trouble with day-to-day activities such as bathing, preparing meals, shopping, managing finances, etc.?: No Are you currently unemployed and looking for a job?: No Are you interested in more education?: No Please select the resources that you would like help with: None Currently or been in a relationship where the following occur: No concerns reported THRIVE Score: 0 AUDIT C Alcohol Use Questionnaire (AUDIT-C) 1. How often do you have a drink containing alcohol?: Never Total Score: 0 LYNN-7 AMB Questionnaire LYNN-7 Date LYNN - 7 assessed: 04/18/24 Feeling nervous, anxious, or on edge: 0 = Not at all Not being able to stop or control worryin = Several days Worrying too much about different things: 1 = Several days Trouble relaxin = Several days Being so restless that it is hard to sit still: 0 = Not at all Becoming easily annoyed or irritable: 0 = Not at all Feeling afraid as if something awful might happen: 0 = Not at all Total LYNN-7 score (0-4 normal; 5-9 mild; 10-14 moderate; 15-21 severe): 3 Source: Developed by Nanda BhardwajW. Dez, Rob Brown and colleagues, with an educational rosina from [employer]. Review of Systems Const Denies body aches, Denies chills, Denies fever(s), Denies headache(s) and Denies poor appetite Eyes Reports no additional complaints ENT Denies dysphagia, Denies dizziness, Denies headache(s) and Denies odynophagia Card Denies chest pain, Denies syncope, Denies edema, Denies irregular heart rhythm, Denies lightheadedness and Denies dyspnea Resp Denies cough and Denies dyspnea GI Denies abdominal pain, Denies constipation, Denies dysphagia, Denies diarrhea, Denies nausea, Denies odynophagia and Denies vomiting Reports no additional complaints Musc Reports no additional complaints and Denies abnormal gait Skin/Breast Reports system reviewed and no additional complaints, except as documented Neuro Denies abnormal gait, Denies dizziness, Denies syncope and Denies headache(s) Psych Reports no additional complaints Physical exam (Primary Care) Vital Signs: Last Vital Signs Temp 97.3 F 09/24/24 09:57 Pulse 63 09/24/24 09:57 BP 170/60 H 09/24/24 09:57 Pulse Ox 95 09/24/24 09:57 Oxygen Delivery Method Room Air 09/24/24 09:57 BMI result Body Mass Index 31.6 Tobacco/Smoking Status: Tobacco use Status Tobacco use date assessed 09/24/24 09/24/24 10:03 Patient Tobacco Use Status Never used Tobacco 09/24/24 10:03 e-Cigarette/Vaping Use Never Used 09/24/24 10:03 PHQ-9: PHQ-9 Score PHQ-9: Total score 3 09/24/24 11:43 Depression Screening Interpretation: Negative Thrive Assessment: Date of Thrive Assessment Date Thrive assessed 09/19/24 09/24/24 10:03 Currently or been in a relationship where the following occur: No concerns reported Const General: cooperative, healthy appearing, comfortable and no acute distress Orientation/consciousness: patient oriented x3 HENMT Head: Yes normocephalic Ears: hearing grossly normal bilaterally General nose exam: Normal external nose present Eyes General: appearance normal, both eyes and all related structures Conjunctivae: conjunctivae normal Neck Neck: Yes full ROM and Yes no lymphadenopathy Resp Effort & Inspection: normal respiratory effort Auscultation: clear to auscultation bilaterally, no crackles, no rales, no rhonchi and no wheezes Cardio Rate: regular rate Rhythm: regular rhythm Skin General skin exam: no rashes or lesions noted Neuro General: patient oriented x3 Gait exam (Neuro): Normal gait present Extrem General: Yes normal to inspection, Yes full ROM and No edema Psych Affect: normal affect Attitude: cooperative Insight: Good insight present (Psych) Judgement: Good judgement present (Psych) Coding Level of Care Code Est Pt Level 4 (20378) Diagnoses Primary insomnia F51.01 Insomnia type: primary Primary hypertension I10 Hypertension type: primary hypertension Peripheral vascular disease I73.9 Hyperlipidemia E78.5 Obesity (BMI 30.0-34.9) E66.9 CKD (chronic kidney disease), 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 She may increase to 50 mg as tolerated and plan to follow up in 2 months. (2) Hypertension: Code(s): I10 - Essential (primary) hypertension Category: Medical Qualifiers: Hypertension type: primary hypertension Qualified Code(s): I10 - Essential (primary) hypertension Plan: Continue on current blood pressure medication. Avoid salt intake and encourage healthy diet and regular exercise. (3) Peripheral vascular disease: Code(s): I73.9 - Peripheral vascular disease, unspecified Category: Medical Plan: Patient was being seen by vascular surgery determined not to have any arterial or venous abnormality. She will follow up with them as needed. Compression stockings and elevation as needed for leg swelling. (4) Hyperlipidemia: Code(s): E78.5 - Hyperlipidemia, unspecified Category: Medical Plan: Avoid foods that are high in cholesterol such as red meat, fried foods, eggs and baked goods. Triglyceride goal of less than 150 and LDL goal of less than 100. Continue on Simvastatin 40mg. Patient had recent blood work done through her video production assistant plan to obtain this blood work (5) Obesity (BMI 30.0-34.9): Code(s): E66.9 - Obesity, unspecified Category: Medical Plan: Healthy diet and regular exercise is encouraged. (6) CKD (chronic kidney disease), stage II: Comment: [facility] every 6 months Code(s): N18.2 - Chronic kidney disease, stage 2 (mild) Category: Medical Plan: Continue to follow with Nephrology in [place] and plan to obtain most recent office notes as well as most recent blood work. (7) HAN on CPAP: Code(s): G47.33 - Obstructive sleep apnea (adult) (pediatric); Z99.89 - Dependence on other enabling machines and devices Category: Medical Plan: Uses CPAP faithfully at least 4 hours a night and benefits from this therapy. Continue to follow with pulmonology advised patient to reach out to schedule appt. (8) Bradycardia: Comment: [facility] every year Code(s): R00.1 - Bradycardia, unspecified Category: Medical Plan: Patient is currently following with Cardiology in [place] for management of heart rate. Asymptomatic at this time. Plan The patient will begin trazodone at a low dose to manage insomnia, with monitoring for side effects such as morning grogginess. Blood pressure will be managed through continued home monitoring and adherence to a low-salt diet. Regular cardiology follow-ups will ensure bradycardia is monitored, with no current symptoms reported. The patient is advised to maintain CPAP use for sleep apnea and to schedule a pulmonology follow-up. This note was constructed using voice recognition software. While every effort has been made to ensure accuracy and implant polisher, still areas may have been included sometimes these areas may affect the content or meeting of the given symptoms. Total time spent caring for the patient today was 30 minutes. This includes time spent before the visit reviewing the chart, time spent during the visit, and time spent after the visit and documentation. Patient was informed and verbally consented to the use of an ambient scribe for clinic note documentation during this visit. Medications: New trazodone 50 mg PO BEDTIME 30 tabs 0RF
[2024-09-24 09:57] VITALS: BP 170/60; PULSE 63; TEMP 36.3; O2SAT 95; BMI 31.6
--- OUTSIDE RECORDS SUMMARY | 2024-09-24 10:13 | XMS_ITS | Encounter Summary ---
Author Organization [facility] Address [address] [facility] [address] [place] [address] Phone Care Team Providers Care Record Clerk Name Role Phone Lakesha García MD Primary Care Provider [phone] Reason for Visit * Reason Onset Date Comments Med Refill 01/17/2021 Encounter Details Date Type Department Care Team (Late st Contact Info) Description 01/17/2021 Refill [facility] [address] [place] [id number] Rocio Barajas Social History Tobacco Use Types [...] Care Team (Late st Contact Info) Description 02/04/2025 10:20 AM EST Office Visit [facility] [address] [facility] [address] [place] [id number] Ravi Ferrera MD [address] [facility] [facility] [address] [place] [address] documented as of this encounter Visit Diagnoses Not on filedocumented in this encounter Care Teams Record Clerk Relationship Specialty Start Date End Date Lakesha García MD [address] [place], [place] PCP - General Internal Medicine 08/06/24 documented as of this encounter
--- OUTSIDE RECORDS SUMMARY | 2024-09-24 10:13 | XMS_ITS | Clinical Summary ---
Author Organization [address] Address [address] [place] [address] Phone Care Team Providers Care Scientific Programmer Analyst Name Role Phone Rahat Riley MD Primary Care Provider [phone] Medications hydrALAZINE (APRESOLINE) 25 mg tablet Take [...] 2024 11/30/2023, 06/03/2023, 12/14/2022, Additional history exists Influenza Vaccine (#1) 2024 , 11/27/2022, 11/20/2021, Additional history exists Hypertension/CHF/CAD Annual BMP Blood Test 04/16/2025 04/16/2024, 08/15/2023 Cholesterol Screening (Lipid Panel) 04/16/2029 04/16/2024 DTaP,Tdap,and Td Vaccines (3 - Td or Tdap) 08/13/2030 08/13/2020, 11/28/2011 MMR Vaccines Aged Out 01/09/2012 No longer eligi ble based on patient's age to complete this topic Zoster Vaccines Completed 06/09/2023, 10/02/2017 Pneumococcal Vaccine: 50+ Years Completed 06/13/2023, 11/18/2015, 11/01/2014, Additional history exists HIB Vaccines Aged Out [...] LAB CHEMISTRY METHOD 04/16/2024 10:27 AM [facility] Triglycerides 80 0 - 150 mg/dL LAB CHEMISTRY METHOD 04/16/2024 10:27 AM [facility] HDL 91 >=40 mg/dL LAB CHEMISTRY METHOD 04/16/2024 10:27 AM [facility] LDL Calculated 56 0 - 100 mg/dL LAB CHEMISTRY METHOD 04/16/2024 10:27 AM [facility] VLDL Cholesterol Yo 16 mg/dL LAB CHEMISTRY METHOD 04/16/2024 10:27 AM [facility] Non HDL Chol. (LDL+VLDL) 72 <145 mg/dL LAB CHEMISTRY METHOD 04/16/2024 10:27 AM [facility] Chol/HDL Ratio 1.8 0.0 - 4.4 LAB CHEMISTRY METHOD 04/16/2024 10:27 AM [facility] Blood Venous blood specimen / Unknown Venipuncture / Unknown 04/16/2024 8:47 AM EST 04/16/2024 9:36 AM EST us Ravi Ferrera MD LAB BLOOD ORDERABLES Final Result [facility] [address] [place] [address], * (ABNORMAL) Comprehensive metabolic panel (04/16/2024 8:47 AM EST) Sodium 140 133 - 145 mmol/L LAB CHEMISTRY METHOD 04/16/2024 10:24 AM [facility] Potassium 4.6 3.5 - 5.5 mmol/L LAB CHEMISTRY METHOD 04/16/2024 10:24 AM [facility] Chloride 112(H) 96 - 110 mmol/L LAB CHEMISTRY METHOD 04/16/2024 10:24 AM [facility] CO2 25 21 - 32 mmol/L LAB CHEMISTRY METHOD 04/16/2024 10:24 AM [facility] Anion Gap 3 3 - 11 LAB CHEMISTRY METHOD 04/16/2024 10:24 AM [facility] Glucose 89 70 - 100 mg/dL LAB CHEMISTRY METHOD 04/16/2024 10:24 AM [facility] BUN 59(H) 5 - 25 mg/dL LAB CHEMISTRY METHOD 04/16/2024 10:24 AM [facility] Creatinine 1.94(H) 0.50 - 1.10 mg/dL LAB CHEMISTRY METHOD 04/16/2024 10:24 AM [facility] eGFR 25(L) >=60 mL/min/1. 73m2 LAB CHEMISTRY METHOD 04/16/2024 10:24 AM [facility] Comment:Calculation based on the Chronic Kidney Disease Epidemiology Collaboration (CKD-EPI) equation refit without adjustment for race. BUN/Creatinine Ratio 30.4 LAB CHEMISTRY METHOD 04/16/2024 10:24 AM [facility] Calcium 9.5 8.5 - 10.5 mg/dL LAB CHEMISTRY METHOD 04/16/2024 10:24 AM [facility] AST (SGOT) 33 10 - 42 unit/L LAB CHEMISTRY METHOD 04/16/2024 10:24 AM [facility] ALT (SGPT) 27 10 - 60 unit/L LAB CHEMISTRY METHOD 04/16/2024 10:24 AM [facility] Alkaline Phosphatase 57 42 - 121 unit/L LAB CHEMISTRY METHOD 04/16/2024 10:24 AM [facility] Total Protein 7.3 6.0 - 8.0 g/dL LAB CHEMISTRY METHOD 04/16/2024 10:24 AM [facility] Albumin 4.0 3.2 - 5.0 g/dL LAB CHEMISTRY METHOD 04/16/2024 10:24 AM EST [facility] Total Bilirubin 0.5 0.0 - 1.4 mg/dL LAB CHEMISTRY METHOD 04/16/2024 10:24 AM EST [facility] Blood Venous blood specimen / Unknown Venipuncture / Unknown 04/16/2024 8:47 AM EST 04/16/2024 9:36 AM EST us Collins Pollock MD LAB BLOOD ORDERABLES Final Res ult [facility] [address] [place] [address], from Last 3 Months or Most Recently Relevant to Health Maintenance Insurance MEDICARE [facility] Member Subscriber Plan / Payer (Ef fective 2024-Present) Name:Kristen Green Relation to Subscriber:Spouse Name:PETERCATHERINE Tse Date of :1934 Address: [address] [place] [id number] Payer ID:[id number] Group ID:[id number] Type:Not on file Address: [address] [place] [address] Care Teams Scientific Programmer Analyst Relationship Specialty Start Date End Date Rahat Riley MD [address] [place] [address] PCP - General Internal Medicine 06/21/20
== END 2024-09-24 10:35 | disposition home or self-care (01) ==
LOC: HO.HMCH 09:51
DX: I12.9 Hypertensive chronic kidney disease with stage 1 through stage 4 chronic kidney disease, or unspecified chronic kidney disease (principal); N18.2 Chronic kidney disease, stage 2 (mild); Z68.31 Body mass index [BMI] 31.0-31.9, adult; E66.9 Obesity, unspecified; E78.5 Hyperlipidemia, unspecified; F51.01 Primary insomnia; I73.9 Peripheral vascular disease, unspecified; G47.33 Obstructive sleep apnea (adult) (pediatric); Z99.89 Dependence on other enabling machines and devices; R00.1 Bradycardia, unspecified

== ENCOUNTER → 2024-09-24 09:50 | Outpatient (BNVA) | payer MEDICARE, BC, SELFPAY | DX: F51.01 Primary insomnia (principal); I73.9 Peripheral vascular disease, unspecified; E78.5 Hyperlipidemia, unspecified; E66.9 Obesity, unspecified; R00.1 Bradycardia, unspecified; G47.33 Obstructive sleep apnea (adult) (pediatric); I12.9 Hypertensive chronic kidney disease with stage 1 through stage 4 chronic kidney disease, or unspecified chronic kidney disease; N18.32 Chronic kidney disease, stage 3b | CPT/HCPCS: 99212 ==

== ENCOUNTER 2024-12-05 13:36 | Outpatient (AMB) | payer MEDICARE, BC, SELFPAY ==
--- NOTE | 2024-12-05 13:43 | MHC.PC.OV ---
Vital Signs 12/05/24 13:44 Height 4 ft 11 in Weight 160 lb 8 oz BMI 32.4 BP 188/42 H Blood Pressure Location Lt brachial Position Sitting Pulse 69 Pulse Source Pulse Oximeter Pulse Oximetry (%) 97 Oxygen Delivery Method Room Air Intake Visit Reasons: 2 month Diagnostics Sales Developer Required: No Accompanied by: Self / Same As Patient Allergies penicillin V Allergy (Unknown, Verified 12/05/24 14:18) nausea and vomiting prednisone Adverse Reaction (Intermediate, Verified 12/05/24 14:18) leg Swelling Medication List - Last Reconciled 12/05/24 by Kiara Dobbins PA-C acetaminophen 500 mg PO Q6H PRN amlodipine 5 mg PO BID aspirin 81 mg PO DAILY calcitriol 0.25 mcg PO Q OTHER DAY cholecalciferol (vitamin D3) 50 mcg PO DAILY CPAP (CPAP Machine/Device) As directed difluprednate 0.05% 1 drp ophthalmic (eye) QID furosemide 40 mg PO DAILY hydralazine 25 mg PO TID isosorbide mononitrate ER 60 mg PO DAILY lactulose 15 mL PO BID multivitamin 1 tab PO DAILY simvastatin 40 mg PO DAILY spironolactone 25 mg PO DAILY trazodone 50 mg PO BEDTIME Tobacco use date assessed: 12/05/24 Fall risk assessment: No Falls in past year Last assessed Fall Risk: 12/05/24 Dental Screening Dental Screen Date: 12/05/24 Did you have a dental visit in the last 12 months?: Yes Did you have a dental problem in the last 6 months where you did not have access to dental care?: No Was dental information given to patient?: Patient has dentist HPI 2 month HPI Details 84-year-old female with past medical history of GERD, hyperlipidemia, hypertension, obstructive sleep apnea on CPAP, chronic kidney disease, peripheral vascular disease last seen 09/2024 coming in for follow up. Presenting with insomnia, balance disorder, and hypertension management. The patient reports difficulty sleeping, with trazodone helping until about 3 AM. She has been using 50 mg of trazodone and is considering increasing the dose to 100 mg. The patient has experienced balance issues and has consulted a physical therapist at [facility]. An appointment is scheduled for further evaluation. The patient reports high blood pressure readings at home and in the clinic. The lead software developer is managing her blood pressure, and recent readings were 150/40 and 150/34. The patient experiences swelling in the ankles, which appears better today. She attempts to elevate her legs when possible. The patient has a movable mass on her leg, which is not painful. An ultrasound or surgical consultation was discussed as potential next steps. [facility] Medical History Chest crackles Post-menopausal Preop exam for internal medicine Pre-op exam Surgical History History of colonoscopy H/O bladder repair surgery Hx laparoscopic cholecystectomy Previous back surgery H/O: hysterectomy Family History Mother No problems noted. Father No problems noted. Son No problems noted. Brother Dementia Heart disease Social History Housing: Condominium Alcohol intake: never Patient Tobacco Use Status: Never used Tobacco e-Cigarette/Vaping Use: Never Used Second Hand Smoke Exposure: No service: No Current occupational status: retired Cognitive needs: No Hearing needs: No Vision needs: Yes Questionnaire PHQ-9 Over the last 2 weeks, how often have you been bothered by any of the following problems? 1. Little interest or pleasure in doing things: not at all 2. Feeling down, depressed, or hopeless: not at all 3. Trouble falling or staying asleep, or sleeping too much: nearly every day 4. Feeling tired or having little energy: not at all 5. Poor appetite or overeating: not at all 6. Feeling bad about yourself - or that you are a failure or have let yourself or your family down: not at all 7. Trouble concentrating on things, such as reading the newspaper or watching television: not at all 8. Moving or speaking so slowly that other people could have noticed. Or the opposite - being so fidgety or restless that you have been moving around a lot more than usual: not at all 9. Thoughts that you would be better off or of hurting yourself in some way: not at all Total score: 3 Depression Screening Interpretation: Negative Depression Screening Done: Yes Source: Developed by Drs. Hollis Valdez, Nanda Garces, Rob Brown and colleagues, with an educational rosina from [employer]. Thrive Questionnaire Date Thrive assessed: 09/19/24 I am a: Patient What is your living situation today?: I have a steady place to live Within the past 12 months, did the food you bought not last and you didn't have the money to get more?: Never true Within the past 12 months, did you worry whether your food would run out before you got money to buy more?: Never true Do you have trouble paying for medicines?: No Do you have trouble getting transportation to medical appointments?: No Do you have trouble paying your heating and electricity bill?: No Do you have trouble taking care of your child, family member or friend?: No Do you have trouble with day-to-day activities such as bathing, preparing meals, shopping, managing finances, etc.?: No Are you currently unemployed and looking for a job?: No Are you interested in more education?: No Please select the resources that you would like help with: None Currently or been in a relationship where the following occur: No concerns reported THRIVE Score: 0 AUDIT C Alcohol Use Questionnaire (AUDIT-C) 1. How often do you have a drink containing alcohol?: Never Total Score: 0 LYNN-7 AMB Questionnaire LYNN-7 Date LYNN - 7 assessed: 04/18/24 Feeling nervous, anxious, or on edge: 0 = Not at all Not being able to stop or control worryin = Several days Worrying too much about different things: 1 = Several days Trouble relaxin = Several days Being so restless that it is hard to sit still: 0 = Not at all Becoming easily annoyed or irritable: 0 = Not at all Feeling afraid as if something awful might happen: 0 = Not at all Total LYNN-7 score (0-4 normal; 5-9 mild; 10-14 moderate; 15-21 severe): 3 Source: Developed by Drs. Hollis Valdez, Nanda Garces, Rob Brown and colleagues, with an educational rosina from [employer]. Review of Systems Const Denies body aches, Denies chills, Denies fever(s), Denies headache(s) and Denies poor appetite Eyes Reports no additional complaints ENT Denies dysphagia, Denies dizziness, Denies headache(s) and Denies odynophagia Card Denies chest pain, Denies syncope, Denies edema, Denies irregular heart rhythm, Denies lightheadedness and Denies dyspnea Resp Denies cough and Denies dyspnea GI Denies abdominal pain, Denies constipation, Denies dysphagia, Denies diarrhea, Denies nausea, Denies odynophagia and Denies vomiting Reports no additional complaints Musc Reports no additional complaints and Denies abnormal gait Skin/Breast Reports system reviewed and no additional complaints, except as documented Neuro Denies abnormal gait, Denies dizziness, Denies syncope and Denies headache(s) Psych Reports no additional complaints Physical exam (Primary Care) Vital Signs: Last Vital Signs Pulse 69 12/05/24 13:44 BP 188/42 H 12/05/24 13:44 Pulse Ox 97 12/05/24 13:44 Oxygen Delivery Method Room Air 12/05/24 13:44 BMI result Body Mass Index 32.4 Tobacco/Smoking Status: Tobacco use Status Tobacco use date assessed 12/05/24 12/05/24 13:49 Patient Tobacco Use Status Never used Tobacco 12/05/24 13:49 e-Cigarette/Vaping Use Never Used 12/05/24 13:49 PHQ-9: PHQ-9 Score PHQ-9: Total score 3 12/05/24 14:30 Depression Screening Interpretation: Negative Thrive Assessment: Date of Thrive Assessment Date Thrive assessed 09/19/24 12/05/24 13:49 Currently or been in a relationship where the following occur: No concerns reported Const General: cooperative, healthy appearing, comfortable and no acute distress Orientation/consciousness: patient oriented x3 [facility] Head: Yes normocephalic Ears: hearing grossly normal bilaterally General nose exam: Normal external nose present Eyes General: appearance normal, both eyes and all related structures Conjunctivae: conjunctivae normal Neck Neck: Yes full ROM and Yes no lymphadenopathy Resp Effort & Inspection: normal respiratory effort Auscultation: clear to auscultation bilaterally, no crackles, no rales, no rhonchi and no wheezes Cardio Rate: regular rate Rhythm: regular rhythm Skin General skin exam: no rashes or lesions noted Full body images:  1. 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 If ineffective, further adjustments will be considered. (2) Hypertension: Code(s): I10 - Essential (primary) hypertension Category: Medical Qualifiers: Hypertension type: primary hypertension Qualified Code(s): I10 - Essential (primary) hypertension Plan: Continue on current blood pressure medication. Avoid salt intake and encourage healthy diet and regular exercise. She will continue to follow with nephrology for management of blood pressure. (3) Obesity (BMI 30.0-34.9): Code(s): E66.9 - Obesity, unspecified Category: Medical Plan: Healthy diet and regular exercise is encouraged. (4) CKD (chronic kidney disease), stage II: Comment: Main [facility] every 6 months Code(s): N18.2 - Chronic kidney disease, stage 2 (mild) Category: Medical Plan: Continue to follow with Nephrology in [place] and plan to obtain most recent office notes as well as most recent blood work. (5) HAN on CPAP: Code(s): G47.33 - Obstructive sleep apnea (adult) (pediatric); Z99.89 - Dependence on other enabling machines and devices Category: Medical Plan: Uses CPAP faithfully at least 4 hours a night and benefits from this therapy. Continue to follow with pulmonology advised patient to reach out to schedule appt. (6) Lower leg mass: Code(s): R22.40 - Localized swelling, mass and lump, unspecified lower limb Category: Medical Plan: Anterior lower leg mass that is non tender and fairly mobile with smooth edges. I did offer an ultrasound of the lower extremity US and/or referral to general surgery both of which were declined today. Mass does not candice suspicious however I did discuss with patient we would not know what the mass is unless we look into it further. She will be watching the mass and make sure it is not growing or changing. Plan This note was constructed using voice recognition software. While every effort has been made to ensure accuracy and embedder, still areas may have been included sometimes these areas may affect the content or meeting of the given symptoms. Total time spent caring for the patient today was 20 minutes. This includes time spent before the visit reviewing the chart, time spent during the visit, and time spent after the visit and documentation. Patient was informed and verbally consented to the use of an ambient scribe for clinic note documentation during this visit. Medications: New trazodone 100 mg PO BEDTIME 90 tabs 0RF Discontinued trazodone Discontinued Reason: Patient no longer taking 50 mg PO BEDTIME 30 tabs 0RF
[2024-12-05 13:44] VITALS: BP 188/42; PULSE 69; O2SAT 97; BMI 32.4
--- OUTSIDE RECORDS SUMMARY | 2024-12-05 16:27 | XMS_ITS | Clinical Summary ---
Author Organization [facility] Address [address] [facility] [facility] [address] [place] [address] Phone Care Team Providers Care Floor Associate Name Role Phone Lakesha García MD Primary Care Provider [phone] Allergies Active Allergy Reactions Criticality Noted Date [...] by mouth 1 (one) time each day 7 Active lactulose (CHRONULAC) 10 GM/15ML solution Take 15 mL by mouth if needed 1 Active Difluprednate 0.05 % emulsion if needed 1 Active docusate sodium (COLACE) 250 MG capsule Take 250 mg by mouth 1 (one) time each day Active spironolactone (ALDACTONE) 25 MG tablet TAKE 1 TABLET BY MOUTH EVERY DAY 90 tablet 3 4 Active amLODIPine (NORVASC) 5 MG tablet TAKE 1 TABLET BY MOUTH TWICE DAILY 180 tablet 3 4 Active Additional Information Patient taking differently: 2 times daily, Morning, Evening, Reported on 08/06/2024 simvastatin (ZOCOR) 40 MG tablet TAKE 1 TABLET BY MOUTH EVERY DAY 90 tablet 3 4 Active ketorolac (ACULAR) 0.5 % ophthalmic solution 0 Active dorzolamide-shadia lol (COSOPT) 2-0.5 % ophthalmic solution 0 Active isosorbide mononitrate (IMDUR) 60 MG 24 hr tablet Take 1 tablet (60 mg total) by mouth 1 (one) time each day Do not crush or chew. 90 tablet 3 5 Active calcitriol (ROCALTROL) 0.25 MCG capsule Take 1 capsule (0.25 mcg total) by mouth every other day 45 capsule 3 5 09/16/19 26 Active furosemide (LASIX) 40 MG tabletIndication s:Stage 3b chronic kidney disease (HCC),Other proteinuria,Hype rtension,Hyperte nsive renal disease,Deep venous thrombosis <Unspecified side> ([facility]),Bradycardi a,Anemia in chronic kidney disease TAKE 1 TABLET(40 MG) BY MOUTH 1 TIME EACH DAY 90 tablet 3 5 Active Active Problems Problem Noted Date Diagnosed [...] Encounters Date Type Department Care Team Description 09/21/2024 Refill [facility] [address] [place] [phone] Ravi Ferrera MD Stage 3b chronic kidney disease (HCC); Other proteinuria; Hypertension; Hypertensive renal disease; Deep venous thrombosis <Unspecified side> (HCC); Bradycardia; Anemia in chronic kidney disease 09/15/2024 Refill [facility] [address] [place] [phone] Pricila Salinas from Last 3 Months Immunizations Immunization Administration [...] Sign Reading Time Taken Comments Blood Pressure 170/62 08/06/2024 9:01 AM EDT Pulse 75 08/06/2024 9:01 AM EDT Temperature - - Respiratory Rate - - Oxygen Saturation 98% 08/06/2024 9:01 AM EDT Inhaled Oxygen Concentration - - Weight 71.5 kg (157 lb 9.6 oz) 08/06/2024 9:01 A M EDT Height 149.9 cm (4' 11 ) 02/21/2023 9:54 AM EST Body Mass Index 31.83 02/21/2023 9:54 AM EST Plan of Treatment Upcoming Encounters Date Type Department Care Team (Late st Contact Info) Description 02/04/2025 10:20 AM EST Office Visit [facility] [address] [phone] Ravi Ferrera MD [address] [phone] Health Maintenance Due Date Last Done Comments Influenza Vaccine (#1) 2024 8, 11/17/2013, 12/24/2012 Pneumococcal Vaccine: 50+ Years Completed 11/02/2014, 12/04/2011 Pneumococcal Vaccine: Peds (0 to 5 Years) and At-Risk Patients (6 to 49 Years) Discontinued 11/02/2014, 12/04/2011 Hepatitis B Vaccine Aged Out No longe r eligible based on patient's age to complete this topic Insurance [facility] Member Subscriber Plan / Payer (Ef fective 2015-Present) Name:Kristen Green Relation to Subscriber:Spouse Name:KRISTEN GREEN Date of :1938 (Home) Address: [address] [place] [id number] Payer ID:[id number] (NAIC) Group ID:[id number] Type:Not on file Address: [address] [place] [address] Medicare [facility] Member Subscriber Plan / Payer (Ef fective 2015-Present) Name:Kristen Green Relation to Subscriber:Spouse Name:KRISTEN GREEN Date of :1938 (Home) Address: [address] [place] [address], [address] [address] Payer ID:[id number] (NAIC) Group ID:[id number] Type:Not on file Address: [address] [place] [address] Medicare Care Teams Floor Associate Relationship Specialty Start Date End Date Lakesha García MD [address] [place] [address] PCP - General Internal Medicine 08/06/24
--- OUTSIDE RECORDS SUMMARY | 2024-12-05 16:27 | XMS_ITS | Encounter Summary ---
Author Organization [facility] Address [address] [place] [address] Phone Care Team Providers Care News Librarian Name Role Phone Tammy Finley MD Unavailable [phone] Rahat Riley MD Primary Care Provider [phone] Encounter Details Date Type Department Care Team (Late st Contact Info) Description 2020 Procedure Pass [facility] 6TH OR PERIOP DEPT [address] [place] [id number] Social History Tobacco Use Types Packs/Day Years Used Date Smoking Tobacco: Never Smokeless Tobacco: Never Alcohol Use Standard Drinks/Week Comments Never 0 (1 standard drink = 0.6 oz pur e alcohol) Comments No Sex and Gender Information Value Date Recorded Sex Assigned at Not on file Legal Sex Female 6:31 AM EDT Gender Identity Not on file Sexual Orientation Not on file documented as of this encounter Plan of Treatment Not on file documented as of this encounter Visit Diagnoses Not on filedocumented in this encounter Care Teams News Librarian Relationship Specialty Start Date End Date Rahat Riley MD [address] [place] [address] [address] [place] [address] PCP - General Internal Medicine 01/12/20 Tammy Finley MD [address] [place] [address] [address] [place] [address] Ophthalmology 01/09/20 documented as of this encounter Additional Source Comments The information contained in this document represents components of the legal health record. It is not the complete legal health record.[facility]
--- OUTSIDE RECORDS SUMMARY | 2024-12-05 16:27 | XMS_ITS | Clinical Summary ---
Author Organization [address] Address [address] [place] [address] Phone Care Team Providers Care Neon Light Installer Name Role Phone Rahat Riley MD Primary Care Provider [phone] Medications hydrALAZINE (APRESOLINE) 25 mg tablet Take [...] 12/20/2023 12:55 PM EDT Plan of Treatment Upcoming Encounters Date Type Department Care Team (Late st Contact Info) Description 02/27/2025 9:40 AM EST Office Visit [facility] [address] [facility] [address] [place] [phone] Haylee Alejandre NP [address] [facility] [address] [place] [address] Health Maintenance Due Date Last Done Comments RSV Immunization Adult Patients (1 - 1-dose 75+ series) 2013 Falls Risk Assessment 02/25/2022 Medicare Annual Wellness Visit 02/25/2022 Osteoporosis Screening (Bone Density Screening) 02/25/2022 Social Influencers of Health Screening 02/25/2022 Depression Screening 03/26/2024 COVID-19 Vaccine ( season) 2024 11/30/2023, 06/03/2023, [...] mg/dL LAB CHEMISTRY METHOD 04/16/2024 10:27 AM EST [facility] Triglycerides 80 0 - 150 mg/dL LAB CHEMISTRY METHOD 04/16/2024 10:27 AM [facility] HDL 91 >=40 mg/dL LAB CHEMISTRY METHOD 04/16/2024 10:27 AM EST [facility] LDL Calculated 56 0 - 100 mg/dL LAB CHEMISTRY METHOD 04/16/2024 10:27 AM EST [facility] VLDL Cholesterol Yo 16 mg/dL LAB CHEMISTRY METHOD 04/16/2024 10:27 AM EST [facility] Non HDL Chol. (LDL+VLDL) 72 <145 mg/dL LAB CHEMISTRY METHOD 04/16/2024 10:27 AM EST [facility] Chol/HDL Ratio 1.8 0.0 - 4.4 LAB CHEMISTRY METHOD 04/16/2024 10:27 AM [facility] Blood Venous blood specimen / Unknown Venipuncture / Unknown 04/16/2024 8:47 AM EST 04/16/2024 9:36 AM EST us Ravi Ferrera MD LAB BLOOD ORDERABLES Final Result [facility] [address] [place] [address], [place] [phone] * (ABNORMAL) Comprehensive metabolic panel (04/16/2024 8:47 AM EST) Sodium 140 133 - 145 mmol/L LAB CHEMISTRY METHOD 04/16/2024 10:24 AM [facility] Potassium 4.6 3.5 - 5.5 [...] [facility] Comment:Calculation based on the Chronic [...] unit/L LAB CHEMISTRY METHOD 04/16/2024 10:24 AM EST [facility] Alkaline Phosphatase 57 42 - 121 unit/L LAB CHEMISTRY METHOD 04/16/2024 10:24 AM EST [facility] Total Protein 7.3 6.0 - 8.0 g/dL LAB CHEMISTRY METHOD 04/16/2024 10:24 AM EST [facility] Albumin 4.0 3.2 - 5.0 g/dL LAB CHEMISTRY METHOD 04/16/2024 10:24 AM EST [facility] Total Bilirubin 0.5 0.0 - 1.4 mg/dL LAB CHEMISTRY METHOD 04/16/2024 10:24 AM [facility] Blood Venous blood specimen / Unknown Venipuncture / Unknown 04/16/2024 8:47 AM EST 04/16/2024 9:36 AM EST us Collins Pollock MD LAB BLOOD ORDERABLES Final Res ult [facility] [address] [place] [address], from Last 3 Months or Most Recently Relevant to Health Maintenance Insurance MEDICARE [facility] Member Subscriber Plan / Payer (Ef fective 2024-Present) Name:Kristen Green Relation to Subscriber:Spouse Name:CATHERINE GREEN Date of :1934 Address: [address] [address] Payer ID:[id number] Group ID:[id number] Type:Not on file Address: [address] [place] [address] Care Teams Neon Light Installer Relationship Specialty Start Date End Date Rahat Riley MD [address] [place] [address] PCP - General Internal Medicine 06/21/20
--- OUTSIDE RECORDS SUMMARY | 2024-12-05 16:27 | XMS_ITS | Clinical Summary ---
Author Organization [facility] Address [address] [place] [address] Phone Care Team Providers Care Red Mud Thickener Operator Name Role Phone Tammy Finley MD Unavailable Rahat Riley MD Primary Care Provider [phone] Allergies Active Allergy Reactions Criticality Noted Date Comments Penicillins Other (See Comments) Low 04/19/2012 Yeast infection Medications isosorbide mononitrate (IMDUR) 60 MG 24 hr tablet Take 60 mg by mouth daily. Active furosemide (LASIX) 40 MG tablet Take 40 mg by mouth daily. Active hydrALAZINE (APRESOLINE) 10 MG tablet Take 10 mg by mouth 2 (two) times a day. Active calcitriol (ROCALTROL) 0.25 MCG capsule Take 0.25 mcg by mouth daily. Active spironolactone (ALDACTONE) 25 MG tablet Take 25 mg by mouth daily. Active simvastatin (ZOCOR) 40 MG tablet Take 40 mg by mouth nightly at bedtime. Active amLODIPine (NORVASC) 5 MG tablet Take 5 mg by mouth daily. Active aspirin 81 MG EC tablet Take 81 mg by mouth daily. Active acetaminophen (TYLENOL) 500 mg capsule Take 1,000 mg by mouth every 6 (six) hours as needed. Active cholecalciferol (VITAMIN D3) 2,000 unit capsule Take 4,000 Units by mouth daily. Active atropine (ISOPTO ATROPINE) 1 % ophthalmic solution Place 1 drop into the left eye 2 (two) times a day. 5 mL 11 03/08/2020 Active cyclopentolate (CYCLOGYL) 1 % ophthalmic solution Place 1 drop into the left eye 4 (four) times a day. 15 mL 3 03/08/2020 Active difluprednate (DUREZOL) 0.05 % Drop Place 1 drop into the right eye daily. 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 Not on karishma e 07/21/2022 Are you concerned about learning? Not on file 07/21/2022 No 07/21/2022 No 07/21/2022 Digital Access Answer Date Recorded No 08/19/2022 No 08/19/2022 No 08/19/2022 Reliable internet access at home? Not on file 08/19/2022 Device with a working camera? Not on file Comments No Sex and Gender Information Value Date Recorded Sex Assigned at Not on file Legal Sex Female 6:31 AM EDT Gender Identity Not on file Sexual Orientation Not on file Last Filed Vital Signs Vital Sign Reading Time Taken Comments Blood Pressure 186/89 03/04/2020 4:54 PM EST Pulse 72 03/04/2020 4:54 PM EST Temperature 36.9 C (98.4 F) 03/04/2020 4:41 PM EST Respiratory Rate 18 03/04/2020 4:54 PM EST Oxygen Saturation 100% 03/04/2020 4:54 PM EST Inhaled Oxygen Concentration - - Weight 76.7 kg (169 lb) 03/04/2020 1:21 PM EST Height 149.9 cm (4' 11 ) 03/04/2020 1:21 PM EST Body Mass Index 34.13 03/04/2020 1:21 PM EST Plan of Treatment Health Maintenance Due Date Last Done Comments POTASSIUM LEVEL 1940 DEPRESSION SCREENING 1950 OSTEOPOROSIS SCREENING INITIAL (ONE-TIME) 2003 RSV VACCINE (1 - 1-dose 75+ series) 2013 ZOSTER VACCINES (2 of 2) 11/27/2017 10/02/2017 INFLUENZA VACCINE (#1) 2024 , 11/19/2019, 11/09/2017, Additional history exists COVID-19 VACCINE ( season) 2024 05/21/2020, 05/02/2020 Adult Td,Tdap Booster 08/13/2030 08/13/2020, 012 PNEUMOCOCCAL VACCINES (50+ years) Completed 11/18/2015, 11/01/2014, 12/04/2011 HEPATITIS A VACCINES Aged Out No long er eligible based on patient's age to complete this topic HIB VACCINES Aged Out No longer eligi ble based on patient's age to complete this topic MENINGOCOCCAL VACCINES (ACWY) Aged Out No longer eligible based on patient's age to complete this topic MENINGOCOCCAL VACCINES (B) Aged Out N o longer eligible based on patient's age to complete this topic Medical Devices Implanted Type Area Data Management Manager Device Identifier Shelf Expiration Date Model / Serial / Lot Lens Intraocular [id number] 21.0d - [id number] Implanted:Qty: 1 on 2020 by Jovanna Boss MD, PhD at [facility] Left: Eye [employer] 10/14/2024 [id number] / [id number] / Insurance [address] [place] [address] MEDICARE PART A & B [facility] MEDICARE PART A & B [facility] MEDICARE PART A & B [facility] MEDICARE PART A & B [facility] MEDICARE PART A & B [facility] [address] [place] [address] MEDICARE PART A & B [facility] [address] [place] [address] MEDICARE PART A & B [facility] [address] [place] [address] MEDICARE PART A & B [facility] [address] [place] [address] MEDICARE PART A & B [facility] MEDICARE PART A & B [facility] [address] [place] [address] MEDICARE PART A & B [place] [employer] Advance Directives For more information, please contact: [phone] (9AM - 5PM [facility], Sunday-Sunday) Documents on File Type Date Recorded Patient Stippler Expl anation Healthcare Proxy 03/05/2020 Care Teams Red Mud Thickener Operator Relationship Specialty Start Date End Date Rahat Riley MD [address] [place] [address] [address] [place] [address] PCP - General Internal Medicine 01/12/20 Tammy Finley MD [address] [place] [address] [address] [place] [address] Ophthalmology 01/09/20 Additional Source Comments The information contained in this document represents components of the legal health record. It is not the complete legal health record.[facility]
--- OUTSIDE RECORDS SUMMARY | 2024-12-05 16:27 | XMS_ITS | Encounter Summary ---
Author Organization [facility] Address [address] [facility] [address] [place] [address] Phone Care Team Providers Care Puttying And Calking Supervisor Name Role Phone Tammy Finley MD Unavailable [phone] Rahat Riley MD Primary Care Provider [phone] Encounter Details Date Type Department Care Team (Late st Contact Info) Description 03/04/2020 Procedure Pass [facility] PERIOP DEPT [address] [place] [address] Social History Tobacco Use Types Packs/Day Years [...] on filedocumented in this encounter Care Teams Puttying And Calking Supervisor Relationship Specialty Start Date End Date Rahat Riley MD [address] [place] [address] [address] [place] [address] PCP - General Internal Medicine 01/12/20 Tammy Finley MD [address] [place] [address] [address] [place] [address] Ophthalmology 01/09/20 documented as of this encounter Additional Source Comments The information contained in this document represents components of the legal health record. It is not the complete legal health record.[facility]
--- OUTSIDE RECORDS SUMMARY | 2024-12-05 16:27 | XMS_ITS | Encounter Summary ---
Author Organization [facility] Address [address] [facility] [address] [place] [address] Phone Care Team Providers Care Gore Stitcher Name Role Phone Lakesha García MD Primary Care Provider Reason for Visit * Reason Onset Date Comments Med Refill 01/17/2021 Encounter Details Date Type Department Care Team (Late st Contact Info) Description 01/17/2021 Refill [facility] [address] [place] [phone] Rocio Barajas Social History Tobacco Use Types [...] [facility] [address] [facility] [address] [place] [phone] Ravi Ferrera MD [address] [facility] [address] [place] [phone] documented as of this encounter Visit Diagnoses Not on filedocumented in this encounter Care Teams Gore Stitcher Relationship Specialty Start Date End Date Lakesha García MD [address] [place], [place] PCP - General Internal Medicine 08/06/24 documented as of this encounter
== END 2024-12-05 14:42 | disposition home or self-care (01) ==
LOC: HO.HMCH 13:36
DX: I12.9 Hypertensive chronic kidney disease with stage 1 through stage 4 chronic kidney disease, or unspecified chronic kidney disease (principal); E66.9 Obesity, unspecified; Z68.32 Body mass index [BMI] 32.0-32.9, adult; N18.2 Chronic kidney disease, stage 2 (mild); F51.01 Primary insomnia; G47.33 Obstructive sleep apnea (adult) (pediatric); Z99.81 Dependence on supplemental oxygen; R22.41 Localized swelling, mass and lump, right lower limb

== ENCOUNTER → 2024-12-05 13:36 | Outpatient (BNVA) | payer MEDICARE, BC, SELFPAY | DX: F51.01 Primary insomnia (principal); I12.9 Hypertensive chronic kidney disease with stage 1 through stage 4 chronic kidney disease, or unspecified chronic kidney disease; N18.2 Chronic kidney disease, stage 2 (mild); E66.9 Obesity, unspecified; R22.40 Localized swelling, mass and lump, unspecified lower limb; G47.33 Obstructive sleep apnea (adult) (pediatric); Z99.89 Dependence on other enabling machines and devices | CPT/HCPCS: 99212 ==

== ENCOUNTER 2024-12-15 09:33 | Outpatient (AMB) | payer MEDICARE, BC, SELFPAY ==
[2024-12-15 09:36] VITALS: BP 196/52; PULSE 62; O2SAT 98; BMI 32.7
--- NOTE | 2024-12-15 09:36 | A.OFFVIS_ITS ---
Vital Signs 12/15/24 09:36 Height 4 ft 11 in Weight 162 lb 0.636 oz BMI 32.7 BP 196/52 H Blood Pressure Location Lt brachial Position Sitting Pulse 62 Pulse Source Pulse Oximeter Pulse Oximetry (%) 98 Oxygen Delivery Method Room Air Intake Visit Reasons: Obstructive sleep apnea Ethylene Plant Helper Required: No Accompanied by: Self / Same As Patient Allergies penicillin V Allergy (Unknown, Verified 12/15/24 09:42) nausea and vomiting prednisone Adverse Reaction (Intermediate, Verified 12/15/24 09:42) leg Swelling HPI Comments Details: The patient is an 84-year-old woman with a known history of obstructive sleep apnea. Recently she did undergo cataract surgery in had to be referred to [facility] because of complications. Her left eye has been getting better. This been port because of the fact that she does use CPAP. The CPAP therapy has been affecting beneficial, but, she has not been able to use it as regularly due to the fact that her eye has been bothering her. She will start using it more. In addition to that she does use the nasal pillows. However, although comfortable sometime she does get some irritation around the nostrils and she cannot wear them. Therefore I did have a P 30 mask available and did provide her with it so she can use it when her nose gets irritated. We did download her machine her AHI is below 2. Her average pressure is around 8 cm of water with a maximum of 10. Again she needs to increase the usage. Otherwise the patient is without any other complaints. 06/21/2022 the patient is here for pulmonary follow-up visit. The patient overall feels well. The patient has been using her CPAP. The CPAP therapy continues to be affecting beneficial. She does use it every night. She does use it for more than 4 hours. The only issues she has had is that she is having dry mouth. She does use a chinstrap with her nasal pillows. She does not feel like she opens her mouth. She did increase the humidity up to 7. Currently her heated tubing is not connected so I can not assess the temperature. I did explain to her how to increase the temperature on the tubing. We also talked about treating the water prior to use it to try to help with humidification. In addition to that her AHI is down to 1. His average pressure is around 5 in some that she needs up to 9. Therefore under go ahead and adjust the pressures to APAP 4-9 with the hope that we can improve the airway dryness. If the patient feels the pressures are too low that she can always call and again increasing again. On examination she does have some crackles. Although she does not have any shortness of breath or any limited activity. Will continue to monitor clinically. She develops any shortness of breath or any respiratory complaints will go ahead and request a chest x-ray. Right now clinically she is doing well in on 0 4 see that is going to add anything she does have some minimal interstitial changes. 09/18/2022 the patient is here for a pulmonary follow-up visit. Overall she is doing better. Her respiratory symptoms have improved. She denies any significant shortness of breath with activity. She has not seen any evidence of any progression of any symptoms since the last visit if anything feels a little better. She is tolerating her CPAP. The CPAP therapy continues to be affecting beneficial. She does use it for more than 4 hours a night. The patient does like her mask and she is using her chinstrap. The patient overall feels well. Her cough is also improved. Although she still has crackles on examination. I have her get an x-ray to monitor closely her pulmonary fibrosis. Will also have her return back sometime in the springtime we will repeat the x-ray just to make sure that there is any progression of the pulmonary fibrosis. 07/20/2023 the patient is here for a pulmonary follow-up visit. Overall the patient did well. She has been using her CPAP every night. The CPAP therapy has been affecting beneficial. She has been using it more than 4 hours. She does use the nasal pillows. Sometimes she gets irritation to her nasal passages and also sometimes gets very dry mouth. I did recommend a fullface mask. I did have a large F20 mask and did provide the rest for her to use. She also had a chest x-ray the last time she was here back in the summer 2022 which we personally reviewed without any acute disease. She had a small area of atelectasis in the right base. The patient does have some crackles on examination. Will plan to get an x-ray during her next visit. However, her respiratory symptoms are the same she has not noticed any worsening or progression of any dyspnea symptoms which is reassuring. If the patient develops any worsening symptoms she will call for an earlier assessment otherwise follow-up next year with a chest x-ray. 12/15/2024 the patient is here for a pulmonary follow-up visit. Overall the patient has been doing well. She did move to a custodial residence and he has been taking some time for her to get a custom and getting everything situated. Therefore she has not been using her CPAP for a brief period of time. Although she finds the CPAP very affecting beneficial. She does try to use it more than 4 hours a night. She finds that the nasal pillows at the most comfortable in the only 1 she can not tolerate. She does get a dry mouth. Explained to her that is likely related to air leakage through her mouth. She has a chinstrap that she can use. Otherwise we did talk about CPAP mouth tape that she can also try although that is something that she would have to investigate. Respiratory keen she is doing okay the patient denies any worsenin g shortness of breath or cough. Dyspnea seems to be little better so will hold off on imaging at this time. If she starts developing worsening dyspnea she can always call for us to reorder and a chest x-ray closer to her home. [facility] Medical History Chest crackles Post-menopausal Preop exam for internal medicine Pre-op exam Surgical History History of colonoscopy H/O bladder repair surgery Hx laparoscopic cholecystectomy Previous back surgery H/O: hysterectomy Family History Mother No problems noted. Father No problems noted. Son No problems noted. Brother Dementia Heart disease Social History Housing: Condominium Alcohol intake: never Patient Tobacco Use Status: Never used Tobacco e-Cigarette/Vaping Use: Never Used Second Hand Smoke Exposure: No service: No Current occupational status: retired Cognitive needs: No Hearing needs: No Vision needs: Yes Review of Systems Const Denies night sweats Eyes Denies change in vision ENT Denies change in voice, Reports dry mouth, Denies lip swelling, Denies mouth pain, Reports nasal congestion, Reports nasal discharge and Denies tongue swelling Card Denies chest pain, Denies dyspnea and Reports dyspnea on exertion Resp Reports cough, Denies dyspnea and Reports dyspnea on exertion GI Denies abdominal pain Musc Denies no additional complaints Neuro Denies Neuro-related abnormal movements Psych Denies no additional complaints Ivan/Lymph Denies easy bleeding and Denies lymphadenopathy Aller/Immun Denies lip swelling and Denies tongue swelling Physical Exam Vital Signs: Last Vital Signs Pulse 62 12/15/24 09:36 BP 196/52 H 12/15/24 09:36 Pulse Ox 98 12/15/24 09:36 Oxygen Delivery Method Room Air 12/15/24 09:36 BMI result Body Mass Index 32.7 Const General: alert Eyes Pupils: Equal, round and reactive pupils present Neck Neck: Yes normal visual inspection, Yes full ROM and Yes no lymphadenopathy Chest Chest palpation & inspection: normal inspection of the chest Resp Effort & Inspection: no stridor Auscultation: diminished lung sounds Cardio Rate: regular rate Rhythm: regular rhythm Heart sounds: S1 normal heart sound present and S2 normal heart sound present GI Palpation (GI): Soft to palpation and nontender Auscultation: normal bowel sounds General: Yes no CVA tenderness Back/Spine/Pelvis Back: no CVA tenderness Skin General skin exam: rashes and/or lesions noted Neuro Cranial nerves: Yes Equal, round and reactive pupils present Assessment & Plan Assessment & Plan (1) HAN on CPAP: Code(s): G47.33 - Obstructive sleep apnea (adult) (pediatric); Z99.89 - Dependence on other enabling machines and devices Category: Medical Plan: Continue APAP therapy, needs to increase usage Trial P-30 mask (2) Insomnia: Code(s): G47.00 - Insomnia, unspecified Category: Medical Qualifiers: Insomnia type: primary Qualified Code(s): F51.01 - Primary insomnia Plan Continue APAP 4-9 nasal pillow mask with chin strap Trazodone for sleep F/U 1 year Coding Level of Care Code Est Pt Level 4 (95800) Diagnoses HAN on CPAP G47.33; Z99.89 Primary insomnia F51.01 Insomnia type: primary Time Spent (min) 16
--- OUTSIDE RECORDS SUMMARY | 2024-12-15 11:15 | XMS_ITS | Clinical Summary ---
Author Organization [address] Address [address] [place] [address] Phone Care Team Providers Care Saturator Tender Name Role Phone Rahat Riley MD Primary Care Provider [phone] Medications hydrALAZINE (APRESOLINE) 25 mg tablet Take [...] Description 02/27/2025 9:40 AM EST Office Visit [facility] [address] [facility] [address] [place] [phone] Haylee Alejandre NP [address] [facility] [address] [place] [address] Health Maintenance Due Date Last [...] LAB CHEMISTRY METHOD 04/16/2024 10:27 AM EST [facility] Triglycerides 80 0 - 150 mg/dL LAB CHEMISTRY METHOD 04/16/2024 10:27 AM [facility] HDL 91 >=40 mg/dL LAB CHEMISTRY METHOD 04/16/2024 10:27 AM EST [facility] LDL Calculated 56 0 - 100 mg/dL LAB CHEMISTRY METHOD 04/16/2024 10:27 AM EST [facility] VLDL Cholesterol Yo 16 mg/dL LAB CHEMISTRY METHOD 04/16/2024 10:27 AM EST [facility] Non HDL Chol. (LDL+VLDL) 72 <145 mg/dL LAB CHEMISTRY METHOD 04/16/2024 10:27 AM EST [facility] Chol/HDL Ratio 1.8 0.0 - 4.4 LAB CHEMISTRY METHOD 04/16/2024 10:27 AM [facility] Blood Venous blood specimen / Unknown Venipuncture / Unknown 04/16/2024 8:47 AM EST 04/16/2024 9:36 AM EST us Ravi Ferrera MD LAB BLOOD ORDERABLES Final Result [facility] [address] [place] [address], [place] [phone] * (ABNORMAL) Comprehensive metabolic panel (04/16/2024 8:47 AM EST) Sodium 140 133 - 145 mmol/L LAB CHEMISTRY METHOD 04/16/2024 10:24 AM [facility] Potassium 4.6 3.5 - 5.5 mmol/L LAB CHEMISTRY METHOD 04/16/2024 10:24 AM [facility] Chloride 112(H) 96 - 110 mmol/L LAB CHEMISTRY METHOD 04/16/2024 10:24 AM [facility] CO2 25 21 - 32 mmol/L LAB CHEMISTRY METHOD 04/16/2024 10:24 AM [facility] Anion Gap 3 3 - 11 LAB CHEMISTRY METHOD 04/16/2024 10:24 AM [facility] Glucose 89 70 - 100 mg/dL LAB CHEMISTRY METHOD 04/16/2024 10:24 AM [facility] BUN 59(H) 5 - 25 mg/dL LAB CHEMISTRY METHOD 04/16/2024 10:24 AM [facility] Creatinine 1.94(H) 0.50 - 1.10 mg/dL LAB CHEMISTRY METHOD 04/16/2024 10:24 AM [facility] eGFR 25(L) >=60 mL/min/1. 73m2 LAB CHEMISTRY METHOD 04/16/2024 10:24 AM [facility] Comment:Calculation based on the Chronic Kidney Disease Epidemiology Collaboration (CKD-EPI) equation refit without adjustment for race. BUN/Creatinine Ratio 30.4 LAB CHEMISTRY METHOD 04/16/2024 10:24 AM [facility] Calcium 9.5 8.5 - 10.5 mg/dL LAB CHEMISTRY METHOD 04/16/2024 10:24 AM [facility] AST (SGOT) 33 10 - 42 unit/L LAB CHEMISTRY METHOD 04/16/2024 10:24 AM [facility] ALT (SGPT) 27 10 - 60 unit/L LAB CHEMISTRY METHOD 04/16/2024 10:24 AM EST [facility] Alkaline Phosphatase 57 42 - 121 unit/L LAB CHEMISTRY METHOD 04/16/2024 10:24 AM EST [facility] Total Protein 7.3 6.0 - 8.0 g/dL LAB CHEMISTRY METHOD 04/16/2024 10:24 AM EST [facility] Albumin 4.0 3.2 - 5.0 g/dL LAB CHEMISTRY METHOD 04/16/2024 10:24 AM EST [facility] Total Bilirubin 0.5 0.0 - 1.4 mg/dL LAB CHEMISTRY METHOD 04/16/2024 10:24 AM [facility] Blood Venous blood specimen / Unknown Venipuncture / Unknown 04/16/2024 8:47 AM EST 04/16/2024 9:36 AM EST us Collins Pollock MD LAB BLOOD ORDERABLES Final Res ult [facility] [address] [place] [address], from Last 3 Months or Most Recently Relevant to Health Maintenance Insurance MEDICARE [facility] Member Subscriber Plan / Payer (Ef fective 2024-Present) Name:Kristen Green Relation to Subscriber:Spouse Name:CATHERINE GREEN Date of :1934 Address: [address] [address] Payer ID:[id number] Group ID:[id number] Type:Not on file Address: [address] [place] [address] Care Teams Saturator Tender Relationship Specialty Start Date End Date Rahat Riley MD [address] [place] [address] PCP - General Internal Medicine 06/21/20
--- OUTSIDE RECORDS SUMMARY | 2024-12-15 11:15 | XMS_ITS | Clinical Summary ---
Author Organization [facility] Address [address] [facility] [address] [place] [address] Phone Care Team Providers Care Academic Guidance Specialist Name Role Phone Lakesha García MD Primary Care Provider [phone] Allergies Active Allergy Reactions Criticality Noted Date [...] nsive renal disease,Deep venous thrombosis <Unspecified side> ([facility]),Bradycardi a,Anemia in chronic kidney disease TAKE 1 [...] Of [place] [address] [place] [phone] Ravi Ferrera MD Stage 3b chronic kidney disease (HCC); Other proteinuria; Hypertension; Hypertensive renal disease; Deep venous thrombosis <Unspecified side> (HCC); Bradycardia; Anemia in chronic kidney disease 09/15/2024 Refill [facility] [address] [place] [phone] Pricila [place] from Last 3 Months Immunizations [...] Office Visit [facility] [address] [phone] Ravi Ferrera MD [address] [phone] Health Maintenance Due Date Last Done Comments Influenza Vaccine (#1) 2024 8, 11/17/2013, 12/24/2012 Pneumococcal Vaccine: 50+ Years Completed 11/02/2014, 12/04/2011 Pneumococcal Vaccine: Peds (0 to 5 Years) and At-Risk Patients (6 to 49 Years) Discontinued 11/02/2014, 12/04/2011 Hepatitis B Vaccine Aged Out No longe r eligible based on patient's age to complete this topic Insurance [facility] Member Subscriber Plan / Payer (Ef fective 2015-Present) Name:Kristen Green Relation to Subscriber:Spouse Name:KRISTEN GREEN Date of :1938 (Home) Address: [address] [place] [address] Payer ID:[id number] (NAIC) Group ID:[id number] Type:Not on file Address: [address] [place] [address] Medicare [facility] Member Subscriber Plan / Payer (Ef fective 2015-Present) Name:Kristen Green Relation to Subscriber:Spouse Name:KRISTEN GREEN Date of :1940 (Home) Address: [address] [place] [address], [address] [address] Payer ID:[id number] (NAIC) Group ID:[id number] Type:Not on file Address: [address] [place] [address] Medicare Care Teams Academic Guidance Specialist Relationship Specialty Start Date End Date Lakesha García MD [address] [place] [address] PCP - General Internal Medicine 08/06/24
--- OUTSIDE RECORDS SUMMARY | 2024-12-15 11:15 | XMS_ITS | Encounter Summary ---
Author Organization [facility] Address [address] [facility] [address] [place] [address] Phone Care Team Providers Care Director Data Name Role Phone Lakesha García MD Primary Care Provider [phone] Reason for Visit * Reason Onset Date Comments Med Refill 01/17/2021 Encounter Details Date Type Department Care Team (Late st Contact Info) Description 01/17/2021 Refill [facility] [address] [place] [phone] Rocio Barajas Social History Tobacco Use Types [...] Visit [facility] [address] [facility] [address] [place] [phone] Ravi Ferrera MD [address] [facility] [address] [place] [phone] documented as of this encounter Visit Diagnoses Not on filedocumented in this encounter Care Teams Director Data Relationship Specialty Start Date End Date Lakesha García MD [address] [place], [place] PCP - General Internal Medicine 08/06/24 documented as of this encounter
--- OUTSIDE RECORDS SUMMARY | 2024-12-15 11:15 | XMS_ITS | Clinical Summary ---
Author Organization [facility] Address [address] [facility] [place] [address] Phone Care Team Providers Care Warp Trucker Name Role Phone Tammy Finley MD Unavailable [phone] Rahat Riley MD Primary Care Provider [phone] Allergies Active Allergy Reactions Criticality Noted Date [...] this topic Medical Devices Implanted Type Area Hospital Director Device Identifier Shelf Expiration Date Model / Serial / Lot Lens Intraocular [id number] 21.0d - [id number] Implanted:Qty: 1 on 2020 by Jovanna Boss MD, PhD at [facility] Left: Eye YOLANDA [employer] 10/14/2024 [id number] / [id number] / Insurance [address] [place] [address] MEDICARE PART A & B [facility] MEDICARE PART A & B [facility] MEDICARE PART A & B [facility] MEDICARE PART A & B [facility] MEDICARE PART A & B [facility] [address] [place] [address] MEDICARE PART A & B [facility] [address] [place] [address] MEDICARE PART A & B [facility] [address] [place] [address] MEDICARE PART A & B [facility] [address] [place] [id number] MEDICARE PART A & B [facility] MEDICARE PART A & B [facility] [address] [place] [address] MEDICARE PART A & B [employer] Advance Directives For more information, please contact: [phone] (9AM - 5PM [facility], Sunday-Sunday) Documents on File Type Date Recorded Patient Firearms Instructor Expl anation Healthcare Proxy 03/05/2020 Care Teams Warp Trucker Relationship Specialty Start Date End Date Rahat Riley MD [address] [place] [address] [address] [place] [address] PCP - General Internal Medicine 01/12/20 Tammy Finley MD [address] [place] [address] [address] [place] [address] Ophthalmology 01/09/20 Additional Source Comments The information contained in this document represents components of the legal health record. It is not the complete legal health record.[facility]
--- OUTSIDE RECORDS SUMMARY | 2024-12-15 11:15 | XMS_ITS | Encounter Summary ---
Author Organization [facility] Address [address] [facility] [address] [place] [address] Phone Care Team Providers Care Fresh Meat Grader Name Role Phone Tmamy Finley MD Unavailable [phone] Rahat Riley MD Primary Care Provider [phone] Encounter Details Date Type Department Care Team (Late st Contact Info) Description 2020 Procedure Pass [facility] [place] PERIOP DEPT [address] [place] [id number] Social History Tobacco Use Types Packs/Day Years [...] on filedocumented in this encounter Care Teams Fresh Meat Grader Relationship Specialty Start Date End Date Rahat Riley MD [address] [place] [address] [address] [place] [address] PCP - General Internal Medicine 01/12/20 Tammy Finley MD [address] [place] [address] [address] [place] [address] Ophthalmology 01/09/20 documented as of this encounter Additional Source Comments The information contained in this document represents components of the legal health record. It is not the complete legal health record.[facility]
--- OUTSIDE RECORDS SUMMARY | 2024-12-15 11:15 | XMS_ITS | Encounter Summary ---
Author Organization [facility] Address [address] [facility] [address] [place] [phone] Phone Care Team Providers Care Cloth Weaver Name Role Phone Tammy Finley MD Unavailable [phone] Rahat Riley MD Primary Care Provider [phone] Encounter Details Date Type Department Care Team (Late st Contact Info) Description 03/04/2020 Procedure Pass [facility] PERIOP DEPT [address] [place] [address] Social History Tobacco Use Types Packs/Day Years [...] on filedocumented in this encounter Care Teams Cloth Weaver Relationship Specialty Start Date End Date Rahat Riley MD [address] [place] [address] [address] [place] [address] PCP - General Internal Medicine 01/12/20 Tammy Finley MD [address] [place] [address] [address] [place] [address] Ophthalmology 01/09/20 documented as of this encounter Additional Source Comments The information contained in this document represents components of the legal health record. It is not the complete legal health record.[facility]
== END 2024-12-15 10:11 | disposition home or self-care (01) ==
LOC: HO.HPS 09:34
PROVIDERS: Visit Provider Hospitalist
DX: G47.33 Obstructive sleep apnea (adult) (pediatric) (principal); Z99.89 Dependence on other enabling machines and devices; F51.01 Primary insomnia
CPT/HCPCS: 99214

== ENCOUNTER → 2024-12-15 09:33 | Outpatient (BNVA) | payer MEDICARE, BC, SELFPAY | PROVIDERS: Visit Provider Hospitalist | DX: G47.33 Obstructive sleep apnea (adult) (pediatric) (principal); F51.01 Primary insomnia; Z99.89 Dependence on other enabling machines and devices | CPT/HCPCS: 99212 ==